=== PATIENT | female | born 1980 | race Caucasian/White ===

== ENCOUNTER 2019-06-09 23:17 | Emergency (ER) | payer OTHER | END 2019-06-10 05:32 | disposition home or self-care (01) | LOC: JER 23:17 | PROC: 3E0337Z Introduction of Electrolytic and Water Balance Substance into Peripheral Vein, Percutaneous Approach (ICD-10-PCS; principal; 2019-06-09) | DX: R07.9 Chest pain, unspecified (principal); R79.89 Other specified abnormal findings of blood chemistry ==

== ENCOUNTER 2020-06-27 19:31 | Emergency (ER) | payer OTHER ==
[2020-06-27 19:38] VITALS: BP 176/84; PULSE 78; TEMP 98.4; BMI 33.7
--- OUTSIDE RECORDS SUMMARY | 2020-06-27 20:07 | XMS ---
:1980 [facility] Providers Name Role Phone Rosales Bryan MD Unavailable Unavailable Rosales Bryan MD Unavailable Unavailable Rosales Bryan MD Unavailable Unavailable oRsales Bryan MD Unavailable Unavailable Rosales Bryan MD Unavailable Unavailable Rosales Bryan MD Unavailable Unavailable Rosales Bryan MD Unavailable Unavailable Rosales Bryan MD Unavailable Unavailable Ringstad, Colette Unavailable Unavailable Ringstad, Colette Unavailable Unavailable Ringstad, Colette Unavailable Unavailable Ringstad, Colette Unavailable Unavailable Ringstad, Colette Unavailable Unavailable Ringstad, Colette Unavailable Unavailable Ringstad, Colette Unavailable Unavailable Ringstad, Colette Unavailable Unavailable Ringstad, Colette Unavailable Unavailable Ringstad, Colette Unavailable Unavailable Ringstad, Colette Unavailable Unavailable Kamilah Rome Unavailable [phone] So, Erika Unavailable Unavailable So, Erika Unavailable Unavailable So, Erika Unavailable Unavailable So, Erika Unavailable Unavailable So, Erika Unavailable Unavailable So, Erika Unavailable Unavailable So, Erika Unavailable Unavailable So, Erika Unavailable Unavailable So, Erika Unavailable Unavailable So, Erika Unavailable Unavailable Dominic Mackey Unavailable [phone] ED STAFF PHYSICIAN, STAFF Unavailable Unavailable MD Reddy Rogel MD Unavailable [phone] MD Reddy Rogel MD Unavailable [phone] Ringstad, Colette Unavailable Unavailable Ringstad, Colette Unavailable Unavailable Ringstad, Colette Unavailable Unavailable Ringstad, Colette Unavailable Unavailable Ringstad, Colette Unavailable Unavailable Ringstad, Colette Unavailable Unavailable Ringstad, Colette Unavailable Unavailable Ringstad, Colette Unavailable Unavailable Ringstad, Colette Unavailable Unavailable Ringstad, Colette Unavailable Unavailable Ringstad, Colette Unavailable Unavailable Nilo, Aqib Unavailable Unavailable Nilo, Aqib Unavailable Unavailable Nilo, Aqib Unavailable Unavailable InezTrevor MD, MPH Unavailable Unavailable InezTrevor sellers MD, MPH Unavailable Unavailable InezTrevor sellers MD, MPH Unavailable Unavailable InezTrevor yip MD, MPH Unavailable Unavailable InezTrevor sellers MD, MPH Unavailable Unavailable Aszalos, Sisi Delmy Unavailable Unavailable Aszalos, Delmy Unavailable Unavailable Aszalos, Delmy Unavailable Unavailable Aszalos, Delmy Unavailable Unavailable Aszalos, Delmy Unavailable Unavailable Aszalos, Delmy Unavailable Unavailable Aszalos, Delmy Unavailable Unavailable Aszalos, Delmy Unavailable Unavailable Aszalos, Delmy Unavailable Unavailable Routen Unavailable Unavailable Routen Unavailable Unavailable DAYANARA COOPER Unavailable Unavailable Martin Unavailable [phone] Martin Unavailable [phone] Aszalos, Delmy Unavailable Unavailable Aszalos, Delmy Unavailable Unavailable Aszalos, Delmy Unavailable Unavailable Aszalos, Delmy Unavailable Unavailable Aszalos, Delmy Unavailable Unavailable Aszalos, Delmy Unavailable Unavailable Aszalos, Delmy Unavailable Unavailable Aszalos, Delmy Unavailable Unavailable Aszalos, Delmy Unavailable Unavailable Opal Scherer MD Unavailable Unavailable Opal Scherer MD Unavailable Unavailable Opal Scherer MD Unavailable Unavailable Opal Scherer MD Unavailable Unavailable Opal Scherer MD Unavailable Unavailable Opal Scherer MD Unavailable Unavailable Opal Scherer MD Unavailable Unavailable Opal Scherer MD Unavailable Unavailable Opal Scherer MD Unavailable Unavailable Opal Scherer MD Unavailable Unavailable Opal Scherer MD Unavailable Unavailable Opal Scherer MD Unavailable Unavailable Opal Scherer MD Unavailable Unavailable Opal Scherer MD Unavailable Unavailable Opal Scherer MD Unavailable Unavailable MD Virgil Unavailable MD Virgil Unavailable MD Virgil Unavailable MD Virgil Unavailable MD Virgil Unavailable MD Virgil Unavailable MD Virgil Unavailable Hewitt Unavailable [phone] Hewitt Unavailable [phone] Dayanara Unavailable Unavailable Dayanara Unavailable Unavailable Dayanara Unavailable Unavailable Dayanara Unavailable Unavailable Re-disclosure Warning The records that you are about to access may contain information from federally- assisted alcohol or drug abuse programs. If such information is present, then the following federally mandated warning applies: This information has been disclosed to you from records protected by federal confidentiality rules (42 CFR part 2). The federal rules prohibit you from making any further disclosure of this information unless further disclosure is expressly permitted by the written consent of the person to whom it pertains or as otherwise permitted by 42 CFR part 2. A general authorization for the release of medical or other information is NOT sufficient for this purpose. The Federal rules restrict any use of the information to criminally investigate or prosecute any alcohol or drug abuse patient.The records that you are about to access may contain highly sensitive health information, the redisclosure of which is protected by Article 27-F of the [facility] Public Health law. If you continue you may haveaccess to information: Regarding HIV / AIDS; Provided by facilities licensed or operated by the [facility] Office of Mental Health; or Provided by the [facility] Office for People With Developmental Disabilities. If such information is present, then the following [facility] mandated warning applies: This information has been disclosed to you from confidential records which are protected by state law. State law prohibits you from making any further disclosure of this information without the specific written consent of the person to whom it pertains, or as otherwise permitted by law. Any unauthorized further disclosure in violation of state law may result in a fine or prison sentence or both. A general authorization for the release of medical or other information is NOT sufficient authorization for further disclosure. Allergies and Adverse Reactions Type Description Substance Reaction Status Data Source(s ) motrin motrin motrin Unknown Active eCW1 ([facility]) penicillins penicillins penicillins Unknown Active eCW1 ([facility]) shellfish shellfish shellfish Unknown Active eCW1 ([facility]) propensity to Penicillin Penicillins Urticaria Active NEXTGEN (S aint adverse reactions (substance) [facility] drug [place]) Drug allergy Ibuprofen Ibuprofen Urticaria Active NEXTGEN ([facility]) Drug allergy Iodine Iodine Urticaria Active NEXTGEN ([facility]) Drug allergy Ibuprofen Ibuprofen Urticaria Active NEXTGEN ([facility]) Propensity to shellfish Propensity to Unknown Active eCW1 (Sa int adverse reactions adverse reactions [facility]) Propensity to motrin Propensity to Unknown Active eCW1 (Sa int adverse reactions adverse reactions [facility]) Propensity to penicillins Propensity to Unknown Active eCW1 (S aint adverse reactions adverse reactions [facility]) Propensity to shellfish Propensity to Unknown Active eCW1 (Sa int adverse reactions adverse reactions [facility]) Propensity to motrin Propensity to Unknown Active eCW1 (Sa int adverse reactions adverse reactions [facility]) Propensity to penicillins Propensity to Unknown Active eCW1 (S aint adverse reactions adverse reactions [facility]) Family History Family Member Family Member Family Member Date of Description Data Source(s) Name Gender Status Status Unknown Male Diagnosis 05/31/2019 NEXTGEN ([facility] [place] Encounters Encounter Providers Location Date Indications Data Source(s ) Attender: [facility] 03/18/2020 ROCIO TGEN ([facility] 11:09:00 AM [facility] EDT - [place]) 03/18/2020 11:09:00 AM EDT Emergency Attender: STAFF ED H 03/17/2020 [facility] STAFF PHYSICIAN 01:44:00 AM [facility] EDT - 03/17/2020 05:27:00 AM EDT Patient discharged. Attender: Kamilah [facility] 03/08/2020 NEXTG EN ([facility] 10:41:00 AM EDT - [facility] 03/08/2020 [place]) 10:41:00 AM EDT Outpatient Attender: Erika Stallings 03/08/2020 [facility] VelezAdmitter: 10:41:00 AM EDT Medic al Center Erika VelezReferrer: Erika So Outpatient 03/08/2020 [facility] 10:37:00 AM EDT Medical C enter Outpatient 03/08/2020 [facility] 12:00:00 AM EDT Medical C enter Outpatient 03/05/2020 [facility] 10:58:00 AM EDT Medical C enter Outpatient Attender: Rosales Stallings 03/05/2020 [facility] 07:55:00 AM EDT Medical C enter MDAdmitter: Rosales Bryan MDReferrer: Rosales Bryan MD Attender: Dominic [facility] 03/05/2020 NEXT GEN ([facility] 07:55:00 AM EDT [facility] 03/05/2020 [place]) 07:55:00 AM EDT Outpatient 03/05/2020 [facility] 12:00:00 AM EDT Medical C enter (TEL) [address] 03/04/2020 eCW1 ([facility] 12:00:00 AM EDT [facility]) [facility]: [facility] 02/23/2020 NEXTG EN ([facility] 10:58:[address] [facility] 02/23/2020 [place]) 10:58:00 AM EDT Outpatient Attender: Erika Stallings 02/23/2020 [facility] VelezAdmitter: 10:58:00 AM EDT Medic [facility] Erika VelezReferrer: Erika So Outpatient 02/23/2020 [facility] 09:58:00 AM EDT Medical C enter Outpatient 02/23/2020 [facility] 12:00:00 AM EDT Medical C enter Attender: [facility] 02/17/2020 NEXTGE N ([facility] 12:54:[address] [facility] 02/17/2020 [place]) 12:54:00 PM EDT Outpatient 02/09/2020 [facility] 02:11:00 PM EDT Medical C enter Outpatient Attender: Erika Stallings 02/09/2020 [facility] VelezAdmitter: 11:03:00 AM EDT Medic al Center Erika VelezReferrer: Erika So Attender: [facility] 02/09/2020 NEXT EN ([facility] 11:03:[address] [facility] 02/09/2020 [place]) 11:03:00 AM EDT Outpatient 02/09/2020 [facility] 12:00:00 AM EDT Medical C enter Attender: [facility] 01/29/2020 NEXT EN ([facility] 09:28:00 AM EDT [facility] 01/29/2020 [place]) 09:28:00 AM EDT Outpatient 01/27/2020 [facility] 03:33:00 PM EDT Medical C enter Outpatient 01/27/2020 [facility] 10:23:00 AM EDT Medical C enter Outpatient Attender: Rosales Stalligns 01/27/2020 [facility] Gh[facility]al Bryan 09:30:00 AM EDT Medical C enter MDAdmitter: Rosales Bryan MDReferrer: Rosales Bryan MD Attender: [facility]ic [facility] 09:30:00 AM EDT [facility] 01/27/2020 [place]) 09:30:00 AM EDT Outpatient 01/27/2020 [facility] 12:00:00 AM EDT Medical C enter Outpatient [address] 01/27/2020 eCW1 [facility] Attender: Erika Stallings 01/26/2020 [facility] VelezAdmitter: 02:32:00 PM EDT [facility] Erika SoReferrer: Erika So Attender: [facility] 01/26/2020 NEXT EN ([facility] 02:32:[address] [facility] 01/26/2020 Center) 02:32:00 PM EDT Outpatient 01/26/2020 [facility] 01:10:00 PM EDT Medical C enter Outpatient Attender: Erika Stallings 01/26/2020 [facility] VelezAdmitter: 09:09:00 AM EDT [facility] Erika SoReferrer: Erika So PHONE E/M BY PHYS Attender: [facility] 01/26/2020 [facility] ([facility] 21-30 [facility] 09:09:00 AM EDT - [facility] 01/26/2020 [place]) 09:09:00 AM EDT Outpatient 01/26/2020 [facility] 09:07:00 AM EDT Medical C enter Outpatient 01/26/2020 [facility] 12:00:00 AM EDT Medical C enter PHONE E/M BY PHYS Attender: [facility] 01/22/2020 NEXTGEN ([facility] 11-20 [facility] 04:09:[address] [facility] 01/22/2020 [place]) 04:09:00 PM EDT Outpatient Attender: Chandrakant 01/22/2020 [facility] Colette 03:32:00 PM EDT Medical C enter RingstadAdmitter: [place] Ponceeferrer: Colette Veliz Attender: [facility] 01/22/2020 SANDIEG EN ([facility] 03:32:[address] [facility] 01/22/2020 [place]) 03:32:00 PM EDT Outpatient 01/22/2020 [facility] 03:29:00 PM EDT Medical C enter Outpatient 01/22/2020 [facility] 12:00:00 AM EDT Medical C enter Outpatient Attender: Erika Stallings 01/01/2020 [facility] VelezAdmitter: 11:59:00 AM EDT Medic al Center Erika SoReferrer: Erika So OutpatientOFFICE/O Attender: [facility] 01/01/2020 ANGELITA (Inez Cloud MD, MPH [place] 11:59:00 AM EDT [facility] Medical EST 01/01/2020 [place]) 11:59:00 AM EDT Outpatient 01/01/2020 [facility] 11:06:00 AM EDT Medical C enter Outpatient 01/01/2020 [facility] 12:00:00 AM EDT Medical C enter Outpatient 12/31/2019 [facility] 02:11:00 PM EDT Medical C enter Outpatient 12/31/2019 [facility] 12:00:00 AM EDT Medical C enter Attender: [facility] 11/20/2019 EDDIE EN ([facility] [place] 03:27:00 PM EST - [facility] Medical 11/20/2019 [place]) 03:27:00 PM EST Outpatient 11/13/2019 [facility] 02:06:00 PM EST Medical C enter Outpatient 11/13/2019 [facility] 12:00:00 AM EST Medical C enter Attender: [facility] 11/11/2019 EDDIE EN ([facility] [place] 03:07:00 PM EST - [facility] 11/11/2019 [place]) 03:07:00 PM EST Outpatient 11/06/2019 [facility] 02:09:00 PM EST Medical C enter Outpatient 11/06/2019 [facility] 12:00:00 AM EST Medical C enter Attender: [facility] 10/31/2019 NEXTGE N ([facility] 01:50:[address] [facility] 10/31/2019 [place]) 01:50:00 PM EST Outpatient 10/29/2019 [facility] 01:43:00 PM EST Medical C enter Outpatient 10/29/2019 [facility] 11:16:00 AM EST Medical C enter Outpatient Attender: Rosales Stallings 10/29/2019 [facility] 08:45:00 AM EST Medical C enter MDAdmitter: Rosales Bryan MDReferrer: Rosales Bryan MD Attender: Dominic 10/29/2019 SANDIEGEN ( [facility] 08:45:00 AM EST [facility] 10/29/2019 [place]) 08:45:00 AM EST Outpatient 10/29/2019 [facility] 12:00:00 AM EST Medical C enter [address] 10/29/2019 [facility]CW[facility] 12[facility]00 [facility] [address] 10/29/2019 [facility]CW1 [facility] 12:00:00 AM [facility]) Outpatient Attender: Erika Stallings 10/20/2019 [facility] roc VelezAdmitter: 06:59:00 PM EST Medic al Center Erika SoReferrer: Erika So OutpatientOFFICE/O Attender: [facility] 10/20/2019 Hoa EXTGEN ([facility] VISIT, Reddy Rogel MD [place] 06:59:[address] [facility] EST 10/20/2019 [place]) 06:59:00 PM EST Outpatient 10/20/2019 [facility] 03:17:00 PM EST Medical C enter Outpatient 10/20/2019 [facility] 12:00:00 AM EST Medical C enter Emergency Attender: STAFF H 10/19/2019 [facility] ED STAFF 04:03:00 AM EST - Medical Center PHYSICIAN 10/19/2019 03:41:00 PM EST Patient discharged. Emergency Attender: Deric Herman H-HAL6 10/14/2019 08:23:00 [facility] MDAttender: STAFF ED STAFF PM EST - 10/16/2019 Medical Center PHYSICIANAdmitter: STAFF ED 03:30:00 PM EST STAFF PHYSICIAN Patient discharged. Outpatient Attender: COOPER Stallings 10/14/2019 [facility] DAYANARA MINALAdmitter: 05:46:00 PM [facility] Medical Center COOPER DAYANARA MINALReferrer: COOPER GAMBOA OutpatientOFFICE/O Attender: [facility] 10/14/2019 SANDIEGEN ([facility] HERNAN, Inez ORTEZ, MPH Center 05:46:00 PM [facility] 10/14/2019 Medical 05:46:00 PM EST Center) Outpatient 10/14/2019 [facility] 05:44:00 PM EST Medical C enter Outpatient 10/14/2019 [facility] 12:00:00 AM EST Medical C enter Attender: [facility] 08/11/2019 ANILA N ([facility] 03:28:00 PM EST [facility] 08/11/2019 Medical 03:28:00 PM EST Center) Attender: [facility] 07/14/2019 ANILA N ([facility] 04:30:00 PM EDT [facility] 07/14/2019 Medical 04:30:00 PM EDT Center) Outpatient 07/12/2019 [facility] 06:32:00 PM EDT Medical C enter Outpatient 07/12/2019 [facility] 12:00:00 AM EDT Medical C enter Attender: Chuck [facility] 07/10/2019 EDDIE EN ([facility] 02:18:00 PM EDT [facility] 07/10/2019 Medical 02:18:00 PM EDT Center) Outpatient 07/07/2019 [facility] 05:28:00 PM EDT Medical C enter Outpatient 07/07/2019 [facility] 12:00:00 AM EDT Medical C enter Attender: Cate [facility] 07/04/2019 ANILA N ([facility] 11:40:00 AM EDT [facility] 07/04/2019 Medical 11:40:00 AM EDT Center) Outpatient 07/03/2019 [facility] 01:10:00 PM EDT Medical C enter Outpatient 07/03/2019 [facility] 12:00:00 AM EDT Medical C enter Outpatient 06/25/2019 [facility] 01:09:00 PM EDT Medical C enter Outpatient 06/25/2019 [facility] 12:00:00 AM EDT Medical C enter Outpatient 06/10/2019 [facility] 05:06:00 PM EDT Medical C enter Outpatient H 06/10/2019 [facility] 04:30:00 PM EDT Medical C enter OutpatientOFFICE/O Attender: MD Blakely [facility] 06/10/2019 ANGELITA ([facility] 04:30:00 PM EDT - J osep EST 06/10/2019 Medical 04:30:00 PM EDT Center) Outpatient 06/10/2019 [facility] 12:42:00 PM EDT Medical C enter Outpatient 06/10/2019 [facility] 12:00:00 AM EDT Medical C enter Emergency H 06/08/2019 [facility] 04:01:00 PM EDT - Medical Center 06/08/2019 09:42:00 PM EDT Patient discharged. Emergency H 06/05/2019 11:14:00 AM EDT - [address] [place] [address] 05:26:00 PM EDT Patient discharged. Outpatient 05/29/2019 [facility] 03:22:00 PM EDT Medical C enter Outpatient Attender: Sisi Stallings 05/29/2019 [facility] anita Brushdmitter: 01:37:00 PM EDT Med ical Center Sisi Sandraeferrer: Sisi Blank OutpatientOFFICE/OU Attender: Miquel [facility] 05/29/2019 ANGELITA ([facility] 01:37:[address] [facility] 05/29/2019 [place]) 01:37:00 PM EDT Outpatient 05/29/2019 [facility] 12:00:00 AM EDT Medical C enter Emergency H 04/28/2019 [facility] 06:14:00 PM EDT Medical C enter 04/28/2019 [facility] 12:00:00 AM EDT Medical C enter Immunizations Vaccine Date Status Description Data Source(s) No Known Immunizations completed eCW1 ([facility]) Medications Medication Brand Start Product Dose Route Administrative [facility] Indications Reaction Description Data Name Date Form Instructions Instructions Source(s) pantoprazol pantop ORAL active take 1 NEXTGEN e 40 MG razole 2020 {tbl} tablet by (Inderjit nt Delayed 40 mg 12:00: oral route Adalberto ephs Release tablet 00 AM every day Medi carmela Oral Tablet ,delay EDT Center ) pantoprazol ed e 40 mg releas tablet,raegan e yed release Aspirin 81 Aspiri 01/26/ active 1 tablet eCW1 MG Delayed n 2020 ([facility] Release Adult 12:00: Delfino Oral Tablet Low 00 AM Medical Aspirin Streng EDT Practice Adult Low th 81 PC) Strength 81 MG MG Aspirin 81 Aspiri .0 active Aspirin eCW1 MG Delayed n 2020 {tabl Adult Low (Sa int Release Adult 12:00: et} Strength 81 Sujatha sephs Oral Tablet Low 00 AM MG Medical Aspirin Stre EDT Practice Adult Low th 81 PC) Strength 81 MG MG Aspirin 81 Aspiri .0 active Aspirin eCW1 MG Delayed n 2020 {tabl Adult Low (Sa int Release Adult 12:00: et} Strength 81 Sujatha sephs Oral Tablet Low 00 AM MG Medical Aspirin Streng EDT Practice Adult Low th 81 PC) Strength 81 MG MG pantoprazol pantop ORAL complet take 1 NEXTGEN e 40 MG razole 2020 {tbl} ed tablet by (Inderjit nt Delayed 40 mg 12:00: oral route Adalberto ephs Release tablet 00 AM every day Medi carmela Oral Tablet ,delay EDT Center ) pantoprazol ed e 40 mg releas tablet,raegan e yed release atorvastati atorva ORAL active take 1 NEXTGEN n 10 MG statin 2020 {tbl} tablet by (Inderjit nt Oral Tablet 10 mg 12:00: oral route Delfino atorvastati tablet 00 AM every day Medical n 10 mg [facility] Center) tablet Nicotine 4 Nicore ORAL active Nicotine 4 NEXTGEN MG Oral tte 4 2019 {tbl} MG Oral (Saint Lozenge mg 12:00: Lozenge Delfino [Nicorette] buccal 00 AM [Nicorette ] Medical Nicorette 4 lozeng EST Center ) mg buccal e lozenge 24 HR metopr ORAL active take 1 NEXTGE N metoprolol olol 2020 {tbl} tablet by (Sa int succinate succin 12:00: oral route Delfino 50 MG ate ER 00 AM every day Medica l Extended 50 mg EST Center) Release tablet Oral Tablet ,exten metoprolol ded succinate releas ER 50 mg e 24 tablet,exte hr nded release 24 hr 0.3 ML EpiPen 09/ 0.30 INTRAM active [id number] NEXTGEN Epinephrine 2-Killian 2019 mL USCULA 0.3 ML (Sa int 1 MG/ML 0.3 12:00: R Epinephrine Adalberto ephs Auto-Inject mg/0.3 00 AM 1 MG/ML Me dical or [Epipen] mL EDT Auto-Injecto Center) EpiPen inject r [Epipen] 2-Killian 0.3 ion, mg/0.3 mL auto-i injection, njecto auto-inject r or pantoprazol pantop 1 complet Inderjit nt e 40 MG razole ed Delfino Delayed 40 mg Medical Release tablet Center Oral Tablet ,delay pantoprazol ed e 40 mg releas tablet,raegan e yed release (DR/EC (DR/EC), ), Ordered By: Leonardo Jones d By: Edmundo Pandey FNPDirectio r ns: 1 Ostine tablet oral , daily FNPDir before ection breakfast s: 1 tablet oral daily before breakf ast 24 HR Metopr 1.0 active Metoprolol eCW1 metoprolol olol {tabl Succinate ER (Saint succinate Succin et} 25 MG Delfino 25 MG ate ER Medical Extended 25 MG Practice Release PC) Oral Tablet Metoprolol Succinate ER 25 MG 24 HR Metopr 1.0 active Metoprolol eCW1 metoprolol olol {tabl Succinate ER (Saint succinate Succin et} 25 MG Delfino 25 MG ate ER Medical Extended 25 MG Practice Release PC) Oral Tablet Metoprolol Succinate ER 25 MG atorvastati Atorva active 1 tablet eCW1 n 10 MG statin (Saint Oral Tablet Calciu Dennis s Atorvastati m 10 Medical n Calcium MG Practice 10 MG PC) Acetaminoph acetam 2 complet Inderjit nt en 325 MG inophe ed Delfino Oral Tablet n 325 Medical acetaminoph mg Center en 325 mg Tablet Tablet, , Ordered By: Leonardo Dias d By: Arun Khan ns: 2 McInty tablet oral re, every six FNPDir hours PRN ection pain s: 2 tablet oral every six hours PRN pain Famotidine famoti 1 complet Cami t 20 MG Oral dine ed Delfino Tablet 20 mg Medical famotidine Tablet Center 20 mg , Tablet, Ordere Ordered By: d By: Liliam Novoantcali ns: 1 re, tablet oral FNPDir daily ection s: 1 tablet oral daily atorvastati atorva 1 complet Inderjit nt n 10 MG statin ed Delfino Oral Tablet 10 mg Medical atorvastati Tablet Center n 10 mg , Tablet, Ordere Ordered By: d By: [email or web address] Loo ns: 1 , tablet oral FNPDir daily at ection bedtime s: 1 tablet oral daily at bedtim e Metoclopram metocl 1 complet Inderjit nt papito 5 MG oprami ed Delfino Oral Tablet de HCl Medica l metoclopram 5 mg Center papito HCl 5 Tablet mg Direct TabletDirec ions: tions: 1 1 tablet oral tablet three times oral a day three before times meals PRN a day nausea or before vomiting meals PRN nausea or vomiti ng 24 HR metopr 1 complet [facility] metoprolol olol ed Delfino succinate succin Medical 25 MG ate 25 Center Extended mg Release Tablet Oral Tablet Extend metoprolol ed succinate Releas 25 mg e 24 Tablet hr, Extended Ordere Release 24 d By: hr, Ordered Anteno By: Dannie Kitchen , ns: 1 FNPDir tablet oral ection daily s: 1 tablet oral daily atorvastati Atorva 1.0 active Atorvasta tin eCW1 n 10 MG statin {tabl Calcium 10 (Sa int Oral Tablet Calciu et} MG Dennis s Atorvastati m 10 Medical n Calcium MG Practice 10 MG PC) 24 HR Metopr active 1 tablet eCW1 metoprolol olol ([facility] succinate Succin Delfino 25 MG ate ER Medical Extended 25 MG Practice Release PC) Oral Tablet Metoprolol Succinate ER 25 MG atorvastati Atorva 1.0 active Atorvasta tin eCW1 n 10 MG statin {tabl Calcium 10 (Sa int Oral Tablet Calciu et} MG Dennis s Atorvastati m 10 Medical n Calcium MG Practice 10 MG PC) Acetaminoph acetam 2 complet Inderjit nt en 325 MG inophe ed Delfino Oral Tablet n 325 Medical acetaminoph mg Center en 325 mg Tablet Tablet, , Ordered By: Leonardo Dias d By: Arun Khan FNPDirectio Liliam ns: 2 McInty tablet oral re, every six FNPDir hours PRN ection pain s: 2 tablet oral every six hours PRN pain Insurance Providers Payer name Policy type Policy ID Covered Covered alliance party's Policy P gunnar / Coverage alliance party ID relationship to Mei Inf ormation type mei [place] [id number] [place] [id number] HMO MVP/HHP [id number] self [id number] O MVP/HHP O [id number] 01 [id number] 300 O W [id number] Problems, Conditions, and Diagnoses Code Display Name Description Problem Type Effective Data Dates Source(s) I10 30600781 Essential Problem 10/29/2019 eCW1 ([facility] hypertension 12:00:00 AM [facility]) I10 [id number] Essential Problem 10/29/2019 eCW1 ([facility] hypertension 12:00:00 AM [facility]) [id number] Anxiety Anxiety Problem NEXTGEN ([facility]) Z72.0 Tobacco use TOBACCO USE Diagnosis 03/17/2020 [place] 01:44:00 AM Medical EDT Center I10 Essential (primary) ESSENTIAL Diagnosis 03/17/2020 [facility] hypertension (PRIMARY) 01:44:00 AM Medical HYPERTENSION EDT Center M79.10 MYALGIA, UNSPECIFIED MYALGIA, Diagnosis 03/17/2020 [facility] SITE UNSPECIFIED SITE 01:44:00 AM Medical EDT Center R52 Pain, unspecified PAIN, UNSPECIFIED Diagnosis 03/17/2020 [facility] 01:44:00 AM Medical EDT Center R07.89 Other chest pain OTHER CHEST PAIN Diagnosis 01/27/2020 Sa int Delfino 09:30:00 AM Medical EDT Center R07.9 Chest pain, CHEST PAIN, Diagnosis 01/26/2020 [facility] [place] [facility] unspecified UNSPECIFIED 09:09:00 AM Medical EDT Center Z71.3 Dietary counseling DIETARY Diagnosis 01/01/2020 [facility] and surveillance COUNSELING AND 11:59:00 AM Med ical SURVEILLANCE EDT Center F41.9 Anxiety disorder, ANXIETY DISORDER, Diagnosis 01/01/2020 [facility] unspecified UNSPECIFIED 11:59:00 AM Medical EDT Center Z12.4 Encounter for ENCOUNTER FOR Diagnosis 01/01/2020 [facility] syeds screening for SCREENING FOR 11:59:00 AM Medical malignant neoplasm MALIGNANT EDT Center of cervix NEOPLASM OF CERVIX Z00.00 Encounter for ENCNTR FOR Diagnosis 01/01/2020 [facility] general adult GENERAL ADULT 11:59:00 AM Medical medical examination MEDICAL EXAM W/O EDT Center without abnormal ABNORMAL FINDINGS findings R00.2 Palpitations PALPITATIONS Diagnosis 10/29/2019 [facility] 08:45:00 AM Medical EST Center Z71.89 Other specified OTHER SPECIFIED Diagnosis 10/20/2019 [facility] counseling COUNSELING 06:59:00 PM Medical EST Center Z71.6 Tobacco abuse TOBACCO ABUSE Diagnosis 10/20/2019 [facility] yahairas counseling COUNSELING 06:59:00 PM Medical EST Center I25.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/20/2019 [facility] heart disease of DISEASE OF [place]ANG[place] 06:59:00 PM Medical [place] coronary COR ART W UNSP EST Cente r artery with ANG PCTRS unspecified angina pectoris F17.210 Nicotine dependence, NICOTINE Diagnosis 10/14/2019 [facility] cigarettes, DEPENDENCE, 08:23:00 PM Medical uncomplicated CIGARETTES, EST Center UNCOMPLICATED I25.89 Other forms of OTHER FORMS OF Diagnosis 10/14/2019 [facility] chronic ischemic CHRONIC ISCHEMIC 08:23:00 PM edical heart disease HEART DISEASE EST Center N64.9 Disorder of breast, DISORDER OF Diagnosis 06/10/2019 Cami t Delfino unspecified BREAST, 04:30:00 PM Medical UNSPECIFIED EDT Center R10.9 Unspecified UNSPECIFIED Diagnosis 06/05/2019 [facility] abdominal pain ABDOMINAL PAIN 11:14:00 AM Medic al EDT Center R51 Headache HEADACHE Diagnosis 06/05/2019 [facility] 11:14:00 AM Medical EDT Center R19.7 Diarrhea, DIARRHEA, Diagnosis 06/05/2019 [facility] unspecified UNSPECIFIED 11:14:00 AM Medical EDT Center R11.10 Vomiting, VOMITING, Diagnosis 06/05/2019 [facility] unspecified UNSPECIFIED 11:14:00 AM Medical EDT Center Z68.34 Body mass index BODY MASS INDEX Diagnosis 05/29/2019 [facility] t Delfino (BMI) 34.0-34.9, (BMI) 34.0-34.9, 01:37:00 PM edical adult ADULT EDT Center Z71.9 Counseling, COUNSELING, Diagnosis 05/29/2019 [facility] unspecified UNSPECIFIED 01:37:00 PM Medical EDT Center Z13.9 Encounter for ENCOUNTER FOR Diagnosis 05/29/2019 [facility] jerome screening, SCREENING, 01:37:00 PM Medical unspecified UNSPECIFIED EDT Center Z80.9 Family history of FAMILY HISTORY OF Diagnosis 05/29/2019 [facility] malignant neoplasm, MALIGNANT 01:37:00 PM [facility] carmela unspecified NEOPLASM, EDT Center UNSPECIFIED R55 Syncope and collapse SYNCOPE AND Diagnosis 04/28/2019 Inderjit nt Delfino COLLAPSE 06:14:00 PM Medical EDT Center R42 Dizziness and DIZZINESS AND Diagnosis 04/28/2019 [facility] jerome giddiness GIDDINESS 06:14:00 PM Medical EDT Center Surgeries/Procedures Procedure Description Date Indications Data Source(s) PHONE E/M [facility]30 [facility] 12:00:00 AM [facility] EDT - Center) 01/26/2020 12:00:00 AM EDT PHONE E/M BY PHYS 01/22/2020 [facility] (S aint 11-20 MIN 12:00:00 AM [facility] EDT - Center) 01/22/2020 12:00:00 AM EDT OFFICE/OUTPATIENT 01/01/2020 [facility] (S aint VISIT, EST 12:00:00 AM [facility] EDT - Center) 01/01/2020 12:00:00 AM EDT SPECIMEN HANDLING 01/01/2020 [facility] (S aint 12:00:00 AM [facility] EDT - Center) 01/01/2020 12:00:00 AM EDT OFFICE/OUTPATIENT 10/20/2019 [facility] (S aint VISIT, EST 12:00:00 AM [facility] EST - Center) 10/20/2019 12:00:00 AM EST OFFICE/OUTPATIENT 10/14/2019 [facility] (S aint VISIT, EST 12:00:00 AM [facility] EST - [place]) 10/14/2019 12:00:00 AM EST OFFICE/OUTPATIENT 06/10/2019 [facility] (S aint VISIT, EST 12:00:00 AM [facility] EDT - Center) 06/10/2019 12:00:00 AM EDT OFFICE/OUTPATIENT 05/29/2019 [facility] (S aint VISIT, NEW 12:00:00 AM [facility] EDT - [place]) 05/29/2019 12:00:00 AM EDT No Known procedures No Known procedures e CW1 ([facility]) Results ID Date Data Source HematologyRou.[id number] 03/17/2020 03:13:00 AM EDT [facility] 0400 Name Value Range Interpretation Description Data Sup porting Code Source(s) Document(s ) Erythrocytes 4.0-5.1 Below low normal <content [facility] [#/volume] in styleCode="Bold Delfino Blood by ">Red Blood Medical Automated count Cell Count Center </content>3.91 MCUMM L<content styleCode="Ital ics"> (4.0-5.1 MCUMM)</content > Leukocytes 4.4-11.0 <content [facility] [#/volume] in styleCode="Bold Delfino Blood by ">White Blood Medical Automated count Cell Count Center </content>9.86 KCUMM<content styleCode="Ital ics"> (4.4-11.0 KCUMM)</content > Hemoglobin 12.3-16. Below low normal <content [facility] [Mass/volume] in 0 styleCode="Bold Delfino Blood ">Hemoglobin Medical </content>12.1 Center G/DL L<content styleCode="Ital ics"> (12.3-16.0 G/DL)</content> Erythrocyte mean 80.0-100 <content [facility] corpuscular .0 styleCode="Bold Delfino volume [Entitic ">Mean Medical volume] by Corpuscular Center Automated count Volume </content>92.1 FL<content styleCode="Ital ics"> (80.0-100.0 FL)</content> Hematocrit 36.0-46. <content [facility] [Volume 0 styleCode="Bold Delfino Fraction] of ">Hematocrit Medical Blood by </content>36.0 Center Automated count %<content styleCode="Ital ics"> (36.0-46.0 %)</content> Erythrocyte mean 26.0-34. <content [facility] corpuscular 0 styleCode="Bold Delfino hemoglobin ">Mean Medical [Entitic mass] Corposcular Center by Automated Hemoglobin count </content>30.9 PG<content styleCode="Ital ics"> (26.0-34.0 PG)</content> Erythrocyte mean 32.0-37. <content [facility] corpuscular 0 styleCode="Bold Delfino hemoglobin ">Mean Corpus. Medical concentration Hgb Center [Mass/volume] by Concentration Automated count (MCHC) </content>33.6 G/DL<content styleCode="Ital ics"> (32.0-37.0 G/DL)</content> Platelets 130-400 <content [facility] [#/volume] in styleCode="Bold Delfino Blood by ">Platelet Medical Automated count Count Center </content>270 KCUMM<content styleCode="Ital ics"> (130-400 KCUMM)</content > Erythrocyte 11.5-14. <content [facility] distribution 5 styleCode="Bold Delfino width [Ratio] by ">Red Cell Medical Automated count Distribution Center Width </content>12.8 %<content styleCode="Ital ics"> (11.5-14.5 %)</content> Platelet mean 8.0-11.0 Above high <content [facility] volume [Entitic normal styleCode="Bold Delfino volume] in Blood ">Mean Platelet Medical by Automated Volume Center count </content>11.4 FL H<content styleCode="Ital ics"> (8.0-11.0 FL)</content> UNK 0 <content [facility] styleCode="Bold Delfino ">Nucleated Red Medical Blood Cell Center </content>0.0 /100<content styleCode="Ital ics"> (0 /100)</content> UNK 0.0 <content [facility] styleCode="Bold Delfino ">Nucleated Red Medical Blood Cell Center Count </content>0.00 KCUMM<content styleCode="Ital ics"> (0.0 KCUMM)</content > ID Date Data Source GFR(Creatinine).[id number] 03/17/2020 03:13:00 AM EDT [facility] 0-0400 Name Value Range Interpretation Code Description Data Maribell rce(s) Supporting Document(s ) UNK > 60 <content [facility] styleCode="Bold"> Medical Cent er EGFR </content>99 GFR<content styleCode="Italic s"> (> 60 GFR)</content> ID Date Data Source Coagulation 03/17/2020 03:13:00 AM [facility] ical Center Rout.[id number] EDT Name Value Range Interpretation Description Data Sup porting Code Source(s) Document(s ) UNK 9.0-13.0 <content [facility] styleCode="Bold" Delfino >Protime Medical </content>11.0 Center SEC<content styleCode="Itali cs"> (9.0-13.0 SEC)</content> INR in 0.80-1.2 <content [facility] Platelet poor 0 styleCode="Bold" Delfino plasma by >INR Medical Coagulation </content>0.99 Center assay #<content styleCode="Itali cs"> (0.80-1.20 #)</content> aPTT in 25.1-36. <content [facility] Platelet poor 5 styleCode="Bold" Delfino plasma by >Partial Medical Coagulation Thromboplastin Center assay Time </content>32.0 SEC<content styleCode="Itali cs"> (25.1-36.5 SEC)</content> ID Date Data Source CHMROUTINECCDA.[id number] 03/17/2020 03:13:00 AM EDT [facility] -0400 Name Value Range Interpretation Description Data Sup porting Code Source(s) Document(s ) Natriuretic < 125 <content [facility] peptide.B styleCode="Chandrakant Delfino prohormone d">NT Pro BNP Medical N-Terminal </content>39.5 Center [Mass/volume] PG/ML<content in Serum or styleCode="Michelle Plasma lics"> (< 125 PG/ML)</conten t> ID Date Data Source CardiacMarkers.[id number] 03/17/2020 03:13:00 AM EDT [facility] -0400 Name Value Range Interpretation Description Data Sup porting Code Source(s) Document(s ) Troponin < 0.034 <content [facility] I.cardiac styleCode="Bold Delfino [Mass/volume ">Troponin I Medical ] in Serum </content>< Center or Plasma 0.012 NG/ML<content styleCode="Ital ics"> (< 0.034 NG/ML)</content > ID Date Data Source BMP.[id number] 03/17/2020 03:13:00 AM EDT [facility] Name Value Range Interpretation Description Data Sup porting Code Source(s) Document(s ) Sodium 137-145 Below low normal <content [facility] [Moles/volume] styleCode="Chandrakant Delfino in Serum or d">Sodium Medical Plasma </content>134 Center MEQ/L L<content styleCode="Michelle lics"> (137-145 MEQ/L)</conten t> Carbon 22-30 <content [facility] dioxide, total styleCode="Chandrakant Delfino [Moles/volume] d">Carbon Medical in Serum or Dioxide Center Plasma </content>23 MEQ/L<content styleCode="Michelle lics"> (22-30 MEQ/L)</conten t> Potassium 3.5-5.3 <content [facility] [Moles/volume] styleCode="Chandrakant Delfino in Serum or d">Potassium Medical Plasma </content>4.0 Center MEQ/L<content styleCode="Michelle lics"> (3.5-5.3 MEQ/L)</conten t> Chloride 98-107 Above high normal <content [facility] [Moles/volume] styleCode="Chandrakant Delfino in Serum or d">Chloride Medical Plasma </content>109 Center MEQ/L H<content styleCode="Michelle lics"> (98-107 MEQ/L)</conten t> Creatinine 0.5-1.3 <content [facility] [Mass/volume] styleCode="Chandrakant Delfino in Serum or d">Creatinine Medical Plasma </content>0.7 Center MG/DL<content styleCode="Michelle lics"> (0.5-1.3 MG/DL)</conten t> Glucose 74-106 <content [facility] [Mass/volume] styleCode="Chandrakant Delfino in Serum or d">Glucose Medical Plasma </content>102 Center MG/DL<content styleCode="Michelle lics"> (74-106 MG/DL)</conten t> UNK 7-17 <content [facility] styleCode="Chandrakant Delfino d">BUN Medical </content>16 Center MG/DL<content styleCode="Michelle lics"> (7-17 MG/DL)</conten t> Calcium 8.4-10.2 <content [facility] [Mass/volume] styleCode="Chandrakant Delfino in Serum or d">Calcium Medical Plasma </content>9.5 Center MG/DL<content styleCode="Michelle lics"> (8.4-10.2 MG/DL)</conten t> UNK > 60 <content [facility] styleCode="Chandrakant Delfino d">EGFR Medical </content>99 Center GFR<content styleCode="Michelle lics"> (> 60 GFR)</content> ID Date Data Source [id number] 03/07/2020 09:19:00 AM EDT [facility] Name Value Range Interpretation Code Description Data Maribell rce(s) Supporting Document(s ) SARS-CoV-2 [facility] Ql SARAN+probe This lab was ordered by [facility] a nd reported by [facility]. ID Date Data Source Liver 03/05/2020 08:20:00 AM EDT [facility] Profile.[id number] Name Value Range Interpretation Description Data Sup porting Code Source(s) Document(s ) Alanine 7-30 <content [facility] aminotransferase styleCode="Bold"> [facility] [Enzymatic Alanine Medical activity/volume] Aminotransferase Center in Serum or Plasma (ALT) </content>12 IU/L<content styleCode="Italic s"> (7-30 IU/L)</content> Aspartate 14-36 <content [facility] aminotransferase styleCode="Bold"> [facility] [Enzymatic Aspartate Medical activity/volume] Aminotransferase Center in Serum or Plasma (AST) </content>19 IU/L<content styleCode="Italic s"> (14-36 IU/L)</content> Alkaline 38-126 <content [facility] phosphatase styleCode="Bold"> [facility] [Enzymatic Alkaline Medical activity/volume] Phosphatase (ALP) Cente r in Serum or Plasma </content>83 IU/L<content styleCode="Italic s"> (38-126 IU/L)</content> Bilirubin.total 0.2-1.3 Below low <content [facility] [Mass/volume] in normal styleCode="Bold"> [facility] hs Serum or Plasma Bilirubin Total Medical </content>< 0.2 Center MG/DL L<content styleCode="Italic s"> (0.2-1.3 MG/DL)</content> Albumin 3.5-5.0 <content [facility] [Mass/volume] in styleCode="Bold"> Mark hs Serum or Plasma Albumin Medical </content>3.7 Center G/DL<content styleCode="Italic s"> (3.5-5.0 G/DL)</content> ID Date Data Source HematologyRou.[id number] 03/05/2020 08:20:00 AM EDT [facility]der[facility] 0400 Name Value Range Interpretation Description Data Sup porting Code Source(s) Document(s ) Erythrocytes 4.0-5.1 <content [facility] [#/volume] in styleCode="Bold Delfino Blood by ">Red Blood Medical Automated count Cell Count Center </content>4.08 MCUMM<content styleCode="Ital ics"> (4.0-5.1 MCUMM)</content > Hemoglobin 12.3-16. <content [facility] [Mass/volume] in 0 styleCode="Bold Delfino Blood ">Hemoglobin Medical </content>12.5 Center G/DL<content styleCode="Ital ics"> (12.3-16.0 G/DL)</content> Leukocytes 4.4-11.0 <content [facility] [#/volume] in styleCode="Bold Delfino Blood by ">White Blood Medical Automated count Cell Count Center </content>7.44 KCUMM<content styleCode="Ital ics"> (4.4-11.0 KCUMM)</content > Erythrocyte mean 32.0-37. <content [facility] corpuscular 0 styleCode="Bold Delfino hemoglobin ">Mean Corpus. Medical concentration Hgb Center [Mass/volume] by Concentration Automated count (MCHC) </content>32.3 G/DL<content styleCode="Ital ics"> (32.0-37.0 G/DL)</content> Hematocrit 36.0-46. <content [facility] [Volume 0 styleCode="Bold Delfino Fraction] of ">Hematocrit Medical Blood by </content>38.7 Center Automated count %<content styleCode="Ital ics"> (36.0-46.0 %)</content> Erythrocyte mean 26.0-34. <content [facility] corpuscular 0 styleCode="Bold Delfino hemoglobin ">Mean Medical [Entitic mass] Corposcular Center by Automated Hemoglobin count </content>30.6 PG<content styleCode="Ital ics"> (26.0-34.0 PG)</content> Erythrocyte mean 80.0-100 <content [facility] corpuscular .0 styleCode="Bold Delfino volume [Entitic ">Mean Medical volume] by Corpuscular Center Automated count Volume </content>94.9 FL<content styleCode="Ital ics"> (80.0-100.0 FL)</content> Platelets 130-400 <content [facility] [#/volume] in styleCode="Bold Delfino Blood by ">Platelet Medical Automated count Count Center </content>224 KCUMM<content styleCode="Ital ics"> (130-400 KCUMM)</content > Platelet mean 8.0-11.0 Above high <content [facility] volume [Entitic normal styleCode="Bold Delfino volume] in Blood ">Mean Platelet Medical by Automated Volume Center count </content>12.9 FL H<content styleCode="Ital ics"> (8.0-11.0 FL)</content> Erythrocyte 11.5-14. <content [facility] distribution 5 styleCode="Bold Delfino width [Ratio] by ">Red Cell Medical Automated count Distribution Center Width </content>13.0 %<content styleCode="Ital ics"> (11.5-14.5 %)</content> Neutrophils 36-66 <content [facility] [#/volume] in styleCode="Bold Delfino Blood by ">Neutrophil Medical Automated count </content>63.7 Center %<content styleCode="Ital ics"> (36-66 %)</content> Lymphocytes 24.0-44. <content [facility] [#/volume] in 0 styleCode="Bold Delfino Blood by ">Lymphocyte Medical Automated count </content>25.8 Center %<content styleCode="Ital ics"> (24.0-44.0 %)</content> Monocytes 3.0-10.0 <content [facility] [#/volume] in styleCode="Bold Delfino Blood by ">Monocyte Medical Automated count </content>7.4 Center %<content styleCode="Ital ics"> (3.0-10.0 %)</content> UNK 1.6-7.3 <content [facility] styleCode="Bold Delfino ">Neutrophil Medical Count Center </content>4.74 KCUMM<content styleCode="Ital ics"> (1.6-7.3 KCUMM)</content > UNK 1.0-4.8 <content [facility] styleCode="Bold Delfino ">Lymphocyte Medical Count Center </content>1.92 KCUMM<content styleCode="Ital ics"> (1.0-4.8 KCUMM)</content > UNK 0.0-0.6 <content [facility] styleCode="Bold Delfino ">Eosinophil Medical Count Center </content>0.18 KCUMM<content styleCode="Ital ics"> (0.0-0.6 KCUMM)</content > UNK 0.2-0.9 <content [facility] styleCode="Bold Delfino ">Monocyte Medical Count Center </content>0.55 KCUMM<content styleCode="Ital ics"> (0.2-0.9 KCUMM)</content > Eosinophils 0-5.0 <content [facility] [#/volume] in styleCode="Bold Delfino Blood by ">Eosinophil Medical Automated count </content>2.4 Center %<content styleCode="Ital ics"> (0-5.0 %)</content> Basophils 0.0-1.0 <content [facility] [#/volume] in styleCode="Bold Delfino Blood by ">Basophil Medical Automated count </content>0.3 Center %<content styleCode="Ital ics"> (0.0-1.0 %)</content> UNK 0.0-0.3 <content [facility] styleCode="Bold Delfino ">Basophil Medical Count Center </content>0.02 KCUMM<content styleCode="Ital ics"> (0.0-0.3 KCUMM)</content > UNK 0 <content [facility] styleCode="Bold Delfino ">Nucleated Red Medical Blood Cell Center </content>0.0 /100<content styleCode="Ital ics"> (0 /100)</content> UNK 0.0 <content [facility] styleCode="Bold Delfino ">Nucleated Red Medical Blood Cell Center Count </content>0.00 KCUMM<content styleCode="Ital ics"> (0.0 KCUMM)</content > UNK 0-0.1 <content [facility] styleCode="Bold Delfino ">Immature Medical Granulocyte Center Count </content>0.03 KCUMM<content styleCode="Ital ics"> (0-0.1 KCUMM)</content > UNK < 1 <content [facility] styleCode="Bold Delfino ">Immature Medical Granulocyte Center Ratio </content>0.4 %<content styleCode="Ital ics"> (< 1 %)</content> ID Date Data Source GFR(Creatinine).[id number] 03/05/2020 08:20:00 AM EDT [facility] 0-0400 Name Value Range Interpretation Code Description Data Maribell rce(s) Supporting Document(s ) UNK > 60 <content [facility] styleCode="Bold"> Medical Cent er EGFR </content>99 GFR<content styleCode="Italic s"> (> 60 GFR)</content> ID Date Data Source Coagulation 03/05/2020 08:20:00 AM [facility] ical Center Rout.[id number] EDT Name Value Range Interpretation Description Data Sup porting Code Source(s) Document(s ) INR in 0.80-1.2 <content [facility] Platelet poor 0 styleCode="[facility] plasma by d">INR Medical Coagulation </content>0.99 Center assay #<content styleCode="Michelle lics"> (0.80-1.20 #)</content> UNK 9.0-13.0 <content [facility] styleCode="Chandrakant Delfion d">Protime Medical </content>11.0 Center SEC<content styleCode="Michelle lics"> (9.0-13.0 SEC)</content> ID Date Data Source CHMROUTINECCDA.[id number] 03/05/2020 08:20:00 AM EDT [facility] -0400 Name Value Range Interpretation Description Data Sup porting Code Source(s) Document(s ) UNK >= 1.0 <content [facility] styleCode="Bold Medical ">AG Ratio Center </content>1.2 <content styleCode="Ital ics"> (>= 1.0 )</content> UNK 2.3-3.5 <content [facility] styleCode="Bold Medical ">Globulin Center </content>3.0 G/DL<content styleCode="Ital ics"> (2.3-3.5 G/DL)</content> Protein 6.3-8.2 <content [facility] [Mass/volum styleCode="Bold Medical e] in Serum ">Total Protein Center or Plasma </content>6.7 G/DL<content styleCode="Ital ics"> (6.3-8.2 G/DL)</content> ID Date Data Source [facility].[id number] 03/05/2020 08:20:00 AM EDT [facility] Name Value Range Interpretation Description Data Sup porting Code Source(s) Document(s ) Potassium 3.5-5.3 <content [facility] [Moles/volume] in styleCode="Bold"> Kristopher phs Serum or Plasma Potassium Medical </content>4.1 Center MEQ/L<content styleCode="Italic s"> (3.5-5.3 MEQ/L)</content> Sodium 137-145 <content [facility] [Moles/volume] in styleCode="Bold"> [facility] Serum or Plasma Sodium Medical </content>138 Center MEQ/L<content styleCode="Italic s"> (137-145 MEQ/L)</content> Carbon dioxide, 22-30 <content [facility] total styleCode="Bold"> Delfino [Moles/volume] in Carbon Dioxide Medical Serum or Plasma </content>24 Center MEQ/L<content styleCode="Italic s"> (22-30 MEQ/L)</content> Chloride 98-107 Above high <content [facility] [Moles/volume] in normal styleCode="Bold"> Kristopher phs Serum or Plasma Chloride Medical </content>109 Center MEQ/L H<content styleCode="Italic s"> (98-107 MEQ/L)</content> UNK 7-17 <content [facility] styleCode="Bold"> Delfino BUN </content>13 Medical MG/DL<content Center styleCode="Italic s"> (7-17 MG/DL)</content> Glucose 74-106 Above high <content [facility] [Mass/volume] in normal styleCode="Bold"> Mark hs Serum or Plasma Glucose Medical </content>114 Center MG/DL H<content styleCode="Italic s"> (74-106 MG/DL)</content> Creatinine 0.5-1.3 <content [facility] [Mass/volume] in styleCode="Bold"> [facility] hs Serum or Plasma Creatinine Medical </content>0.7 Center MG/DL<content styleCode="Italic s"> (0.5-1.3 MG/DL)</content> Calcium 8.4-10. <content [facility] [Mass/volume] in 2 styleCode="Bold"> Mark hs Serum or Plasma Calcium Medical </content>9.4 Center MG/DL<content styleCode="Italic s"> (8.4-10.2 MG/DL)</content> Aspartate 14-36 <content [facility] aminotransferase styleCode="Bold"> Mark hs [Enzymatic Aspartate Medical activity/volume] Aminotransferase Center in Serum or Plasma (AST) </content>19 IU/L<content styleCode="Italic s"> (14-36 IU/L)</content> UNK > 60 <content [facility] styleCode="Bold"> Delfino EGFR </content>99 Medical GFR<content Center styleCode="Italic s"> (> 60 GFR)</content> Alanine 7-30 <content [facility] aminotransferase styleCode="Bold"> Mark hs [Enzymatic Alanine Medical activity/volume] Aminotransferase Center in Serum or Plasma (ALT) </content>12 IU/L<content styleCode="Italic s"> (7-30 IU/L)</content> Alkaline 38-126 <content [facility] phosphatase styleCode="Bold"> Delfino [Enzymatic Alkaline Medical activity/volume] Phosphatase (ALP) Cente r in Serum or Plasma </content>83 IU/L<content styleCode="Italic s"> (38-126 IU/L)</content> Bilirubin.total 0.2-1.3 Below low <content [facility] [Mass/volume] in normal styleCode="Bold"> Mark hs Serum or Plasma Bilirubin Total Medical </content>< 0.2 Center MG/DL L<content styleCode="Italic s"> (0.2-1.3 MG/DL)</content> Albumin 3.5-5.0 <content [facility] [Mass/volume] in styleCode="Bold"> Mark hs Serum or Plasma Albumin Medical </content>3.7 Center G/DL<content styleCode="Italic s"> (3.5-5.0 G/DL)</content> ID Date Data Source [facility].[id number] 01/27/2020 10:15:00 AM EDT [facility] -0400 Name Value Range Interpretation Description Data Sup porting Code Source(s) Document(s ) UNK 2.3-3.5 <content [facility] styleCode="Bold Medical ">Globulin Center </content>3.0 G/DL<content styleCode="Ital ics"> (2.3-3.5 G/DL)</content> UNK >= 1.0 <content [facility] styleCode="Bold Medical ">AG Ratio Center </content>1.4 <content styleCode="Ital ics"> (>= 1.0 )</content> Protein 6.3-8.2 <content [facility] [Mass/volum styleCode="Bold Medical e] in Serum ">Total Protein Center or Plasma </content>7.1 G/DL<content styleCode="Ital ics"> (6.3-8.2 G/DL)</content> ID Date Data Source [facility].[id number] 01/27/2020 10:15:00 AM EDT [facility] Name Value Range Interpretation Description Data Sup porting Code Source(s) Document(s ) Sodium 137-145 <content [facility] [Moles/volume] in styleCode="Bold"> [facility] Serum or Plasma Sodium Medical </content>137 Center MEQ/L<content styleCode="Italic s"> (137-145 MEQ/L)</content> Chloride 98-107 Above high <content [facility] [Moles/volume] in normal styleCode="Bold"> [facility] Serum or Plasma Chloride Medical </content>108 Center MEQ/L H<content styleCode="Italic s"> (98-107 MEQ/L)</content> Potassium 3.5-5.3 <content [facility] [Moles/volume] in styleCode="Bold"> [facility] Serum or Plasma Potassium Medical </content>5.0 Center MEQ/L<content styleCode="Italic s"> (3.5-5.3 MEQ/L)</content> UNK 7-17 <content [facility] styleCode="Bold"> Delfino BUN </content>14 Medical MG/DL<content Center styleCode="Italic s"> (7-17 MG/DL)</content> Carbon dioxide, 22-30 <content [facility] total styleCode="Bold"> Delfino [Moles/volume] in Carbon Dioxide Medical Serum or Plasma </content>22 Center MEQ/L<content styleCode="Italic s"> (22-30 MEQ/L)</content> Creatinine 0.5-1.3 <content [facility] [Mass/volume] in styleCode="Bold"> Mark hs Serum or Plasma Creatinine Medical </content>0.6 Center MG/DL<content styleCode="Italic s"> (0.5-1.3 MG/DL)</content> Calcium 8.4-10. <content [facility] [Mass/volume] in 2 styleCode="Bold"> Mark hs Serum or Plasma Calcium Medical </content>9.8 Center MG/DL<content styleCode="Italic s"> (8.4-10.2 MG/DL)</content> UNK > 60 <content [facility] styleCode="Bold"> Delfino EGFR Medical </content>118 Center GFR<content styleCode="Italic s"> (> 60 GFR)</content> Glucose 74-106 <content [facility] [Mass/volume] in styleCode="Bold"> Mark hs Serum or Plasma Glucose Medical </content>96 Center MG/DL<content styleCode="Italic s"> (74-106 MG/DL)</content> Alanine 7-30 <content [facility] aminotransferase styleCode="Bold"> Mark hs [Enzymatic Alanine Medical activity/volume] Aminotransferase Center in Serum or Plasma (ALT) </content>14 IU/L<content styleCode="Italic s"> (7-30 IU/L)</content> Aspartate 14-36 <content [facility] aminotransferase styleCode="Bold"> Mark hs [Enzymatic Aspartate Medical activity/volume] Aminotransferase Center in Serum or Plasma (AST) </content>22 IU/L<content styleCode="Italic s"> (14-36 IU/L)</content> Albumin 3.5-5.0 <content [facility] [Mass/volume] in styleCode="Bold"> Mark hs Serum or Plasma Albumin Medical </content>4.1 Center G/DL<content styleCode="Italic s"> (3.5-5.0 G/DL)</content> Bilirubin.total 0.2-1.3 <content [facility] [Mass/volume] in styleCode="Bold"> Mark hs Serum or Plasma Bilirubin Total Medical </content>0.3 Center MG/DL<content styleCode="Italic s"> (0.2-1.3 MG/DL)</content> Alkaline 38-126 <content [facility] phosphatase styleCode="Bold"> Delfino [Enzymatic Alkaline Medical activity/volume] Phosphatase (ALP) Cente r in Serum or Plasma </content>81 IU/L<content styleCode="Italic s"> (38-126 IU/L)</content> ID Date Data Source Liver 01/27/2020 10:15:00 AM EDT [facility] Profile.[id number] Name Value Range Interpretation Description Data Sup porting Code Source(s) Document(s ) Aspartate 14-36 <content [facility] aminotransferase styleCode="Bold"> Mark hs [Enzymatic Aspartate Medical activity/volume] Aminotransferase Center in Serum or Plasma (AST) </content>22 IU/L<content styleCode="Italic s"> (14-36 IU/L)</content> Alanine 7-30 <content [facility] aminotransferase styleCode="Bold"> Mark hs [Enzymatic Alanine Medical activity/volume] Aminotransferase Center in Serum or Plasma (ALT) </content>14 IU/L<content styleCode="Italic s"> (7-30 IU/L)</content> Bilirubin.total 0.2-1.3 <content [facility] [Mass/volume] in styleCode="Bold"> Mark hs Serum or Plasma Bilirubin Total Medical </content>0.3 Center MG/DL<content styleCode="Italic s"> (0.2-1.3 MG/DL)</content> Alkaline 38-126 <content [facility] phosphatase styleCode="Bold"> Delfino [Enzymatic Alkaline Medical activity/volume] Phosphatase (ALP) Cente r in Serum or Plasma </content>81 IU/L<content styleCode="Italic s"> (38-126 IU/L)</content> Albumin 3.5-5.0 <content [facility] [Mass/volume] in styleCode="Bold"> Mark hs Serum or Plasma Albumin Medical </content>4.1 Center G/DL<content styleCode="Italic s"> (3.5-5.0 G/DL)</content> ID Date Data Source HematologyRou.[id number] 01/27/2020 10:15:00 AM EDT [facility] 0400 Name Value Range Interpretation Description Data Sup porting Code Source(s) Document(s ) Leukocytes 4.4-11.0 <content [facility] [#/volume] in styleCode="Bold Delfino Blood by ">White Blood Medical Automated count Cell Count Center </content>7.48 KCUMM<content styleCode="Ital ics"> (4.4-11.0 KCUMM)</content > Hemoglobin 12.3-16. <content [facility] [Mass/volume] in 0 styleCode="Bold Delfino Blood ">Hemoglobin Medical </content>13.4 Center G/DL<content styleCode="Ital ics"> (12.3-16.0 G/DL)</content> Erythrocytes 4.0-5.1 <content [facility] [#/volume] in styleCode="Bold Delfino Blood by ">Red Blood Medical Automated count Cell Count Center </content>4.39 MCUMM<content styleCode="Ital ics"> (4.0-5.1 MCUMM)</content > Erythrocyte mean 80.0-100 <content [facility] corpuscular .0 styleCode="Bold Delfino volume [Entitic ">Mean Medical volume] by Corpuscular Center Automated count Volume </content>92.0 FL<content styleCode="Ital ics"> (80.0-100.0 FL)</content> Hematocrit 36.0-46. <content [facility] [Volume 0 styleCode="Bold Delfino Fraction] of ">Hematocrit Medical Blood by </content>40.4 Center Automated count %<content styleCode="Ital ics"> (36.0-46.0 %)</content> Erythrocyte mean 26.0-34. <content [facility] corpuscular 0 styleCode="Bold Delfino hemoglobin ">Mean Medical [Entitic mass] Corposcular Center by Automated Hemoglobin count </content>30.5 PG<content styleCode="Ital ics"> (26.0-34.0 PG)</content> Erythrocyte mean 32.0-37. <content [facility] corpuscular 0 styleCode="Bold Delfino hemoglobin ">Mean Corpus. Medical concentration Hgb Center [Mass/volume] by Concentration Automated count (MCHC) </content>33.2 G/DL<content styleCode="Ital ics"> (32.0-37.0 G/DL)</content> Platelet mean 8.0-11.0 Above high <content [facility] volume [Entitic normal styleCode="Bold Delfino volume] in Blood ">Mean Platelet Medical by Automated Volume Center count </content>11.9 FL H<content styleCode="Ital ics"> (8.0-11.0 FL)</content> Erythrocyte 11.5-14. <content [facility] distribution 5 styleCode="Bold Delfino width [Ratio] by ">Red Cell Medical Automated count Distribution Center Width </content>12.6 %<content styleCode="Ital ics"> (11.5-14.5 %)</content> Platelets 130-400 <content [facility] [#/volume] in styleCode="Bold Delfino Blood by ">Platelet Medical Automated count Count Center </content>244 KCUMM<content styleCode="Ital ics"> (130-400 KCUMM)</content > UNK 0 <content [facility] styleCode="Bold Delfino ">Nucleated Red Medical Blood Cell Center </content>0.0 /100<content styleCode="Ital ics"> (0 /100)</content> UNK 0.0 <content [facility] styleCode="Bold Delfino ">Nucleated Red Medical Blood Cell Center Count </content>0.00 KCUMM<content styleCode="Ital ics"> (0.0 KCUMM)</content > ID Date Data Source GFR(Creatinine).[id number] 01/27/2020 10:15:00 AM EDT [facility] 0-0400 Name Value Range Interpretation Code Description Data Maribell rce(s) Supporting Document(s ) UNK > 60 <content [facility] styleCode="Bold"> Medical Cent er EGFR </content>118 GFR<content styleCode="Italic s"> (> 60 GFR)</content> ID Date Data Source Coagulation 01/27/2020 10:15:00 AM [facility] Center Rout.[id number] EDT Name Value Range Interpretation Description Data Sup porting Code Source(s) Document(s ) INR in 0.80-1.2 <content [facility] Platelet poor 0 styleCode="Bold" Delfino plasma by >INR Medical Coagulation </content>0.98 Center assay #<content styleCode="Itali cs"> (0.80-1.20 #)</content> aPTT in 25.1-36. <content [facility] Platelet poor 5 styleCode="Bold" Delfino plasma by >Partial Medical Coagulation Thromboplastin Center assay Time </content>31.0 SEC<content styleCode="Itali cs"> (25.1-36.5 SEC)</content> UNK 9.0-13.0 <content [facility] styleCode="Bold" Delfino >Protime Medical </content>10.9 Center SEC<content styleCode="Itali cs"> (9.0-13.0 SEC)</content> ID Date Data Source [id number] 01/23/2020 12:00:00 AM EDT [facility] Name Value Range Interpretation Code Description Data Maribell rce(s) Supporting Document(s ) 2019-nCoV [facility] RNA XXX SARAN+probe- Imp This lab was ordered by [facility] and reported by [employer]. ID Date Data Source Liver 10/29/2019 10:30:00 AM EST [facility] Profile.[id number] Name Value Range Interpretation Description Data Sup porting Code Source(s) Document(s ) Aspartate 14-36 <content [facility] aminotransferase styleCode="Bold"> Mark hs [Enzymatic Aspartate Medical activity/volume] Aminotransferase Center in Serum or Plasma (AST) </content>18 IU/L<content styleCode="Italic s"> (14-36 IU/L)</content> Alanine 7-30 <content [facility] aminotransferase styleCode="Bold"> Mark hs [Enzymatic Alanine Medical activity/volume] Aminotransferase Center in Serum or Plasma (ALT) </content>13 IU/L<content styleCode="Italic s"> (7-30 IU/L)</content> Alkaline 38-126 <content [facility] phosphatase styleCode="Bold"> Delfino [Enzymatic Alkaline Medical activity/volume] Phosphatase (ALP) Cente r in Serum or Plasma </content>72 IU/L<content styleCode="Italic s"> (38-126 IU/L)</content> Albumin 3.5-5.0 <content [facility] [Mass/volume] in styleCode="Bold"> Mark hs Serum or Plasma Albumin Medical </content>3.7 Center G/DL<content styleCode="Italic s"> (3.5-5.0 G/DL)</content> Bilirubin.total 0.2-1.3 Below low <content [facility] [Mass/volume] in normal styleCode="Bold"> Mark hs Serum or Plasma Bilirubin Total Medical </content>< 0.2 Center MG/DL L<content styleCode="Italic s"> (0.2-1.3 MG/DL)</content> ID Date Data Source HematologyRou.[id number] 10/29/2019 10:30:00 AM MARIA A [facility] 0500 Name Value Range Interpretation Description Data Sup porting Code Source(s) Document(s ) Hemoglobin 12.3-16. <content [facility] [Mass/volume] in 0 styleCode="Bold [facility] Blood ">Hemoglobin Medical </content>12.3 Center G/DL<content styleCode="Ital ics"> (12.3-16.0 G/DL)</content> Erythrocytes 4.0-5.1 <content [facility] [#/volume] in styleCode="Bold [facility] Blood by ">Red Blood Medical Automated count Cell Count Center </content>4.02 MCUMM<content styleCode="Ital ics"> (4.0-5.1 MCUMM)</content > Leukocytes 4.4-11.0 <content [facility] [#/volume] in styleCode="Bold Delfino Blood by ">White Blood Medical Automated count Cell Count Center </content>6.99 KCUMM<content styleCode="Ital ics"> (4.4-11.0 KCUMM)</content > Hematocrit 36.0-46. <content [facility] [Volume 0 styleCode="Bold Delfino Fraction] of ">Hematocrit Medical Blood by </content>36.6 Center Automated count %<content styleCode="Ital ics"> (36.0-46.0 %)</content> Erythrocyte mean 32.0-37. <content [facility] corpuscular 0 styleCode="Bold Delfino hemoglobin ">Mean Corpus. Medical concentration Hgb Center [Mass/volume] by Concentration Automated count (MCHC) </content>33.6 G/DL<content styleCode="Ital ics"> (32.0-37.0 G/DL)</content> Erythrocyte mean 26.0-34. <content [facility] corpuscular 0 styleCode="Bold Delfino hemoglobin ">Mean Medical [Entitic mass] Corposcular Center by Automated Hemoglobin count </content>30.6 PG<content styleCode="Ital ics"> (26.0-34.0 PG)</content> Erythrocyte mean 80.0-100 <content [facility] corpuscular .0 styleCode="Bold Delfino volume [Entitic ">Mean Medical volume] by Corpuscular Center Automated count Volume </content>91.0 FL<content styleCode="Ital ics"> (80.0-100.0 FL)</content> Platelet mean 8.0-11.0 Above high <content [facility] volume [Entitic normal styleCode="Bold Delfino volume] in Blood ">Mean Platelet Medical by Automated Volume Center count </content>11.8 FL H<content styleCode="Ital ics"> (8.0-11.0 FL)</content> Platelets 130-400 <content [facility] [#/volume] in styleCode="Bold Delfino Blood by ">Platelet Medical Automated count Count Center </content>222 KCUMM<content styleCode="Ital ics"> (130-400 KCUMM)</content > Erythrocyte 11.5-14. <content [facility] distribution 5 styleCode="Bold Delfino width [Ratio] by ">Red Cell Medical Automated count Distribution Center Width </content>13.0 %<content styleCode="Ital ics"> (11.5-14.5 %)</content> UNK 0.0 <content [facility] styleCode="Bold Delfino ">Nucleated Red Medical Blood Cell Center Count </content>0.00 KCUMM<content styleCode="Ital ics"> (0.0 KCUMM)</content > UNK 0 <content styleCode="Bold Delfino ">Nucleated Red Medical Blood Cell Center </content>0.0 /100<content styleCode="Ital ics"> (0 /100)</content> ID Date Data Source GFR(Creatinine).[id number] 10/29/2019 10:30:00 AM EST [facility]derjit nt [facility] 0-0500 Name Value Range Interpretation Code Description Data Maribell rce(s) Supporting Document(s ) UNK > 60 <content [facility] styleCode="Bold"> Medical Cent er EGFR </content>99 GFR<content styleCode="Italic s"> (> 60 GFR)</content> ID Date Data Source Coagulation 10/29/2019 10:30:00 AM [facility] Rout.[id number] EST Name Value Range Interpretation Description Data Sup porting Code Source(s) Document(s ) UNK 9.0-13.0 <content styleCode="Bold" Delfino >Protime Medical </content>10.9 Center SEC<content styleCode="Itali cs"> (9.0-13.0 SEC)</content> INR in 0.80-1.2 <content [facility] Platelet poor 0 styleCode="Bold" Delfino plasma by >INR Medical Coagulation </content>0.98 Center assay #<content styleCode="Itali cs"> (0.80-1.20 #)</content> aPTT in 25.1-36. <content [facility] Platelet poor 5 styleCode="Bold" Delfino plasma by >Partial Medical Coagulation Thromboplastin Center assay Time </content>32.0 SEC<content styleCode="Itali cs"> (25.1-36.5 SEC)</content> ID Date Data Source CHMROUTINECCDA.[id number] 10/29/2019 10:30:00 AM MARIA A Jansen [facility] -0500 Name Value Range Interpretation Description Data Sup porting Code Source(s) Document(s ) UNK >= 1.0 <content [facility] styleCode="Bold Medical ">AG Ratio Center </content>1.3 <content styleCode="Ital ics"> (>= 1.0 )</content> Protein 6.3-8.2 <content [facility] [Mass/volum styleCode="Bold Medical e] in Serum ">Total Protein Center or Plasma </content>6.5 G/DL<content styleCode="Ital ics"> (6.3-8.2 G/DL)</content> UNK 2.3-3.5 <content [facility] styleCode="Bold Medical ">Globulin Center </content>2.8 G/DL<content styleCode="Ital ics"> (2.3-3.5 G/DL)</content> ID Date Data Source [facility].[id number] 10/29/2019 10:30:00 AM EST [facility] Name Value Range Interpretation Description Data Sup porting Code Source(s) Document(s ) Sodium 137-145 <content [facility] [Moles/volume] in styleCode="Bold"> Kristopher phs Serum or Plasma Sodium Medical </content>139 Center MEQ/L<content styleCode="Italic s"> (137-145 MEQ/L)</content> Carbon dioxide, 22-30 <content [facility] total styleCode="Bold"> Delfino [Moles/volume] in Carbon Dioxide Medical Serum or Plasma </content>25 Center MEQ/L<content styleCode="Italic s"> (22-30 MEQ/L)</content> Chloride 98-107 Above high <content [facility] [Moles/volume] in normal styleCode="Bold"> Kristopher phs Serum or Plasma Chloride Medical </content>108 Center MEQ/L H<content styleCode="Italic s"> (98-107 MEQ/L)</content> Potassium 3.5-5.3 <content [facility] [Moles/volume] in styleCode="Bold"> Kristopher phs Serum or Plasma Potassium Medical </content>4.7 Center MEQ/L<content styleCode="Italic s"> (3.5-5.3 MEQ/L)</content> Creatinine 0.5-1.3 <content [facility] [Mass/volume] in styleCode="Bold"> Mark hs Serum or Plasma Creatinine Medical </content>0.7 Center MG/DL<content styleCode="Italic s"> (0.5-1.3 MG/DL)</content> UNK 7-17 <content [facility] styleCode="Bold"> Delfino BUN </content>13 Medical MG/DL<content Center styleCode="Italic s"> (7-17 MG/DL)</content> Calcium 8.4-10. <content [facility] [Mass/volume] in 2 styleCode="Bold"> Mark hs Serum or Plasma Calcium Medical </content>9.7 Center MG/DL<content styleCode="Italic s"> (8.4-10.2 MG/DL)</content> UNK > 60 <content [facility] styleCode="Bold"> Delfino EGFR </content>99 Medical GFR<content Center styleCode="Italic s"> (> 60 GFR)</content> Glucose 74-106 <content [facility] [Mass/volume] in styleCode="Bold"> Mark hs Serum or Plasma Glucose Medical </content>99 Center MG/DL<content styleCode="Italic s"> (74-106 MG/DL)</content> Aspartate 14-36 <content [facility] aminotransferase styleCode="Bold"> Mark hs [Enzymatic Aspartate Medical activity/volume] Aminotransferase Center in Serum or Plasma (AST) </content>18 IU/L<content styleCode="Italic s"> (14-36 IU/L)</content> Alkaline 38-126 <content [facility] phosphatase styleCode="Bold"> [facility] [Enzymatic Alkaline Medical activity/volume] Phosphatase (ALP) Cente r in Serum or Plasma </content>72 IU/L<content styleCode="Italic s"> (38-126 IU/L)</content> Albumin 3.5-5.0 <content [facility] [Mass/volume] in styleCode="Bold"> Mark hs Serum or Plasma Albumin Medical </content>3.7 Center G/DL<content styleCode="Italic s"> (3.5-5.0 G/DL)</content> Alanine 7-30 <content [facility] aminotransferase styleCode="Bold"> Mark hs [Enzymatic Alanine Medical activity/volume] Aminotransferase Center in Serum or Plasma (ALT) </content>13 IU/L<content styleCode="Italic s"> (7-30 IU/L)</content> Bilirubin.total 0.2-1.3 Below low <content [facility] [Mass/volume] in normal styleCode="Bold"> Mark hs Serum or Plasma Bilirubin Total Medical </content>< 0.2 Center MG/DL L<content styleCode="Italic s"> (0.2-1.3 MG/DL)</content> ID Date Data Source Hormones.[id number] 10/15/2019 05:35:00 AM MAR[facility] A [facility] Name Value Range Interpretation Description Data Sup porting Code Source(s) Document(s ) UNK 5.53-11. <content [facility] 0 styleCode="Chandrakant Delfino d">Thyroxine Medical (T4) Center </content>8.54 UG/DL<content styleCode="Michelle lics"> (5.53-11.0 UG/DL)</conten t> Thyrotropin 0.465-4. <content Saint [Units/volume] 68 styleCode="Chandrakant Delfino in Serum or d">Thyroid Medical Plasma by Stimulating Center Detection Hormone limit <= 0.05 </content>2.21 mIU/L MIU/L<content styleCode="Michelle lics"> (0.465-4.68 MIU/L)</conten t> ID Date Data Source CHMROUTINECCDA.[id number] 10/15/2019 05:35:00 AM [facility] -0500 Name Value Range Interpretation Code Description Data Maribell rce(s) Supporting Document(s ) UNK 4.2-5.8 <content [facility] Delfino styleCode="Bold" Medical Cente r >Hemoglobin A1C </content>5.8 %<content styleCode="Itali cs"> (4.2-5.8 %)</content> ID Date Data Source [employer].[id number] 10/15/2019 05:35:00 AM [facility] -0500 Name Value Range Interpretation Description Data Sup porting Code Source(s) Document(s ) Troponin < 0.034 <content [facility] I.cardiac styleCode="Bold Delfino [Mass/volume ">Troponin I Medical ] in Serum </content>< Center or Plasma 0.012 NG/ML<content styleCode="Ital ics"> (< 0.034 NG/ML)</content > ID Date Data Source Urinalysis.[id number] 10/15/2019 12:29:00 AM [facility] 0 Name Value Range Interpretation Description Data Sup porting Code Source(s) Document(s ) Color of Urine YELLOW <content Saint styleCode="Chandrakant Delfino d">Color, Medical Urine Center </content>YELL OW <content styleCode="Michelle lics"> (YELLOW )</content> UNK CLEAR <content Saint styleCode="Chandrakant Delfino d">Urine Medical Clarity Center </content>SOPHY R <content styleCode="Michelle lics"> (CLEAR )</content> Specific 1.015-1.02 <content Saint gravity of 5 styleCode="Chandrakant Delfino Urine by Test d">Urine Medical strip Specific Center Wright </content>1.02 5 <content styleCode="Michelle lics"> (1.015-1.025 )</content> Glucose NEGATIVE <content Saint [Mass/volume] styleCode="Chandrakant Delfino in Urine by d">Urine Medical Test strip Glucose Center </content>NEGA TIVE MG/DL<content styleCode="Michelle lics"> (NEGATIVE MG/DL)</conten t> UNK NEGATIVE <content Saint styleCode="Chandrakant Delfino d">Urine Medical Bilirubin Center </content>SMAL L <content styleCode="Michelle lics"> (NEGATIVE )</content> Ketones NEGATIVE <content Saint [Mass/volume] styleCode="Chandrakant Delfino in Urine by d">Urine Medical Test strip Ketone Center </content>NEGA TIVE MG/DL<content styleCode="Michelle lics"> (NEGATIVE MG/DL)</conten t> Protein NEGATIVE <content [facility] [Mass/volume] styleCode="Chandrakant Delfino in Urine by d">Urine Medical Test strip Protein Center </content>NEGA TIVE MG/DL<content styleCode="Michelle lics"> (NEGATIVE MG/DL)</conten t> pH of Urine by 4.5-8.0 <content [facility] Test strip styleCode="Chandrakant Delfino d">Urine pH Medical </content>6.0 Center <content styleCode="Michelle lics"> (4.5-8.0 )</content> Hemoglobin NEGATIVE <content Saint [Presence] in styleCode="Chandrakant Collinss Urine by Test d">Urine Blood Medical strip </content>NEGA Center TIVE <content styleCode="Michelle lics"> (NEGATIVE )</content> Urobilinogen 0.2-1.0 <content [facility] [Units/volume] styleCode="Chandrakant Delfino in Urine by d">Urine Medical Test strip Urobilinogen Center </content>0.2 MG/DL<content styleCode="Michelle lics"> (0.2-1.0 MG/DL)</conten t> Leukocyte NEGATIVE <content [facility] esterase styleCode="Chandrakant Delfino [Presence] in d">Urine Medical Urine by Test Leukocyte Center strip </content>NEGA TIVE <content styleCode="Michelle lics"> (NEGATIVE )</content> Nitrite NEGATIVE <content Saint [Presence] in styleCode="Chandrakant Delfino Urine by Test d">Urine Medical strip Nitrite Center </content>NEGA TIVE <content styleCode="Michelle lics"> (NEGATIVE )</content> ID Date Data Source Coagulation 10/14/2019 10:36:00 PM [facility] ical Center Rout.[id number] EST Name Value Range Interpretation Description Data Sup porting Code Source(s) Document(s ) UNK < 500 <content [facility] styleCode="Bold" Delfino >D-Dimer Medical </content>223 Center ngFEU<content styleCode="Itali cs"> (< 500 ngFEU)</content> aPTT in 25.1-36. <content [facility] Platelet poor 5 styleCode="Bold" Delfino plasma by >Partial Medical Coagulation Thromboplastin Center assay Time </content>33.1 SEC<content styleCode="Itali cs"> (25.1-36.5 SEC)</content> INR in 0.80-1.2 <content [facility] Platelet poor 0 styleCode="Bold" Delfino plasma by >INR Medical Coagulation </content>1.12 Center assay #<content styleCode="Itali cs"> (0.80-1.20 #)</content> UNK 9.0-13.0 <content [facility] styleCode="Bold" Delfino >Protime Medical </content>12.4 Center SEC<content styleCode="Itali cs"> (9.0-13.0 SEC)</content> ID Date Data Source CHMROUTINECCDA.[id number] 10/14/2019 09:51:00 PM EST Inderjit nt [facility] -0500 Name Value Range Interpretation Description Data Sup porting Code Source(s) Document(s ) Natriuretic < 125 <content [facility] peptide.B styleCode="Chandrakant Saleh prohormone d">NT Pro BNP Medical N-Terminal </content>25.6 Center [Mass/volume] PG/ML<content in Serum or styleCode="Michelle Plasma lics"> (< 125 PG/ML)</conten t> ID Date Data Source Liver 10/14/2019 09:51:00 PM EST [facility] Profile.[id number] Name Value Range Interpretation Description Data Sup porting Code Source(s) Document(s ) Aspartate 14-36 <content [facility] aminotransferase styleCode="Bold"> Mark hs [Enzymatic Aspartate Medical activity/volume] Aminotransferase Center in Serum or Plasma (AST) </content>20 IU/L<content styleCode="Italic s"> (14-36 IU/L)</content> Alanine 7-30 <content [facility] aminotransferase styleCode="Bold"> Mark hs [Enzymatic Alanine Medical activity/volume] Aminotransferase Center in Serum or Plasma (ALT) </content>15 IU/L<content styleCode="Italic s"> (7-30 IU/L)</content> Bilirubin.total 0.2-1.3 <content [facility] [Mass/volume] in styleCode="Bold"> Mark hs Serum or Plasma Bilirubin Total Medical </content>0.3 Center MG/DL<content styleCode="Italic s"> (0.2-1.3 MG/DL)</content> UNK 0.0-0.3 <content [facility] styleCode="Bold"> Delfino Bilirubin, Direct Medical </content>< 0.2 Center MG/DL<content styleCode="Italic s"> (0.0-0.3 MG/DL)</content> Alkaline 38-126 <content [facility] phosphatase styleCode="Bold"> Delfino [Enzymatic Alkaline Medical activity/volume] Phosphatase (ALP) Cente r in Serum or Plasma </content>71 IU/L<content styleCode="Italic s"> (38-126 IU/L)</content> Albumin 3.5-5.0 <content [facility] [Mass/volume] in styleCode="Bold"> Mark hs Serum or Plasma Albumin Medical </content>4.1 Center G/DL<content styleCode="Italic s"> (3.5-5.0 G/DL)</content> ID Date Data Source LIPID.[id number] 10/14/2019 09:51:00 PM EST [facility] Center Name Value Range Interpretation Description Data Sup porting Code Source(s) Document(s ) Cholesterol -<200 <content [facility] [Mass/volume] in styleCode="[facility] Serum or Plasma d">Cholesterol Medical </content>173 Center MG/DL<content styleCode="Michelle lics"> (-<200 MG/DL)</conten t> Triglyceride < 150 <content [facility] [Mass/volume] in styleCode="[facility] Serum or Plasma d">Triglycerid [facility] Center </content>92 MG/DL<content styleCode="Michelle lics"> (< 150 MG/DL)</conten t> UNK < 100 Above high normal <content Saint styleCode="[facility] d">LDL-Cholest [facility] Center </content>109 MG/DL H<content styleCode="Michelle lics"> (< 100 MG/DL)</conten t> UNK > 60 Below low normal <content Saint styleCode="[facility] d">HDL- Medical Cholesterol Center </content>46 MG/DL L<content styleCode="Michelle lics"> (> 60 MG/DL)</conten t> ID Date Data Source HematologyRou.[id number] 10/14/2019 09:51:00 PM EST Inderjit [facility] 0500 Name Value Range Interpretation Description Data Sup porting Code Source(s) Document(s ) Leukocytes 4.4-11.0 <content [facility] [#/volume] in styleCode="Bold Delfino Blood by ">White Blood Medical Automated count Cell Count Center </content>8.47 KCUMM<content styleCode="Ital ics"> (4.4-11.0 KCUMM)</content > Hemoglobin 12.3-16. <content [facility] [Mass/volume] in 0 styleCode="Bold Delfino Blood ">Hemoglobin Medical </content>12.4 Center G/DL<content styleCode="Ital ics"> (12.3-16.0 G/DL)</content> Erythrocytes 4.0-5.1 <content [facility] [#/volume] in styleCode="Bold Delfino Blood by ">Red Blood Medical Automated count Cell Count Center </content>4.11 MCUMM<content styleCode="Ital ics"> (4.0-5.1 MCUMM)</content > Hematocrit 36.0-46. <content [facility] [Volume 0 styleCode="Bold Delfino Fraction] of ">Hematocrit Medical Blood by </content>37.3 Center Automated count %<content styleCode="Ital ics"> (36.0-46.0 %)</content> Erythrocyte mean 26.0-34. <content [facility] corpuscular 0 styleCode="Bold Delfino hemoglobin ">Mean Medical [Entitic mass] Corposcular Center by Automated Hemoglobin count </content>30.2 PG<content styleCode="Ital ics"> (26.0-34.0 PG)</content> Erythrocyte mean 80.0-100 <content [facility] corpuscular .0 styleCode="Bold Delfino volume [Entitic ">Mean Medical volume] by Corpuscular Center Automated count Volume </content>90.8 FL<content styleCode="Ital ics"> (80.0-100.0 FL)</content> Erythrocyte mean 32.0-37. <content [facility] corpuscular 0 styleCode="Bold Delfino hemoglobin ">Mean Corpus. Medical concentration Hgb Center [Mass/volume] by Concentration Automated count (MCHC) </content>33.2 G/DL<content styleCode="Ital ics"> (32.0-37.0 G/DL)</content> Platelets 130-400 <content [facility] [#/volume] in styleCode="Bold Delfino Blood by ">Platelet Medical Automated count Count Center </content>285 KCUMM<content styleCode="Ital ics"> (130-400 KCUMM)</content > Erythrocyte 11.5-14. <content [facility] distribution 5 styleCode="Bold Delfino width [Ratio] by ">Red Cell Medical Automated count Distribution Center Width </content>13.1 %<content styleCode="Ital ics"> (11.5-14.5 %)</content> Platelet mean 8.0-11.0 Above high <content [facility] volume [Entitic normal styleCode="Bold Delfino volume] in Blood ">Mean Platelet Medical by Automated Volume Center count </content>11.2 FL H<content styleCode="Ital ics"> (8.0-11.0 FL)</content> UNK 0 <content [facility] styleCode="Bold Delfino ">Nucleated Red Medical Blood Cell Center </content>0.0 /100<content styleCode="Ital ics"> (0 /100)</content> UNK 0.0 <content [facility] styleCode="Bold Delfino ">Nucleated Red Medical Blood Cell Center Count </content>0.00 KCUMM<content styleCode="Ital ics"> (0.0 KCUMM)</content > ID Date Data Source GFR(Creatinine).[id number] 10/14/2019 09:51:00 PM [facility] 0-0500 Name Value Range Interpretation Code Description Data Maribell rce(s) Supporting Document(s ) UNK > 60 <content [facility] styleCode="Bold"> Medical Cent er EGFR </content>99 GFR<content styleCode="Italic s"> (> 60 GFR)</content> ID Date Data Source CardiacMarkers.[id number] 10/14/2019 09:51:00 PM EST [facility] -0500 Name Value Range Interpretation Description Data Sup porting Code Source(s) Document(s ) Troponin < 0.034 <content [facility] I.cardiac styleCode="Bold Delfino [Mass/volume ">Troponin I Medical ] in Serum </content>< Center or Plasma 0.012 NG/ML<content styleCode="Ital ics"> (< 0.034 NG/ML)</content > ID Date Data Source BMP.[id number] 10/14/2019 09:51:00 PM EST [facility] Name Value Range Interpretation Description Data Sup porting Code Source(s) Document(s ) UNK 7-17 <content [facility] styleCode="Bold"> Delfino BUN </content>11 Medical MG/DL<content Center styleCode="Italic s"> (7-17 MG/DL)</content> Chloride 98-107 <content [facility] [Moles/volume] in styleCode="Bold"> Kristopher phs Serum or Plasma Chloride Medical </content>107 Center MEQ/L<content styleCode="Italic s"> (98-107 MEQ/L)</content> Potassium 3.5-5.3 <content [facility] [Moles/volume] in styleCode="Bold"> Kristopher phs Serum or Plasma Potassium Medical </content>4.4 Center MEQ/L<content styleCode="Italic s"> (3.5-5.3 MEQ/L)</content> Sodium 137-145 <content [facility] [Moles/volume] in styleCode="Bold"> Kristopher phs Serum or Plasma Sodium Medical </content>139 Center MEQ/L<content styleCode="Italic s"> (137-145 MEQ/L)</content> Carbon dioxide, 22-30 <content [facility] total styleCode="Bold"> Delfino [Moles/volume] in Carbon Dioxide Medical Serum or Plasma </content>26 Center MEQ/L<content styleCode="Italic s"> (22-30 MEQ/L)</content> Aspartate 14-36 <content [facility] aminotransferase styleCode="Bold"> Mark hs [Enzymatic Aspartate Medical activity/volume] Aminotransferase Center in Serum or Plasma (AST) </content>20 IU/L<content styleCode="Italic s"> (14-36 IU/L)</content> Calcium 8.4-10. Above high <content [facility] [Mass/volume] in 2 normal styleCode="Bold"> Mark hs Serum or Plasma Calcium Medical </content>10.3 Center MG/DL H<content styleCode="Italic s"> (8.4-10.2 MG/DL)</content> Glucose 74-106 <content [facility] [Mass/volume] in styleCode="Bold"> Mark hs Serum or Plasma Glucose Medical </content>93 Center MG/DL<content styleCode="Italic s"> (74-106 MG/DL)</content> UNK > 60 <content [facility] styleCode="Bold"> Delfino EGFR </content>99 Medical GFR<content Center styleCode="Italic s"> (> 60 GFR)</content> Creatinine 0.5-1.3 <content [facility] [Mass/volume] in styleCode="Bold"> Mark hs Serum or Plasma Creatinine Medical </content>0.7 Center MG/DL<content styleCode="Italic s"> (0.5-1.3 MG/DL)</content> Alanine 7-30 <content [facility] aminotransferase styleCode="Bold"> Mark hs [Enzymatic Alanine Medical activity/volume] Aminotransferase Center in Serum or Plasma (ALT) </content>15 IU/L<content styleCode="Italic s"> (7-30 IU/L)</content> Alkaline 38-126 <content [facility] phosphatase styleCode="Bold"> Delfino [Enzymatic Alkaline Medical activity/volume] Phosphatase (ALP) Cente r in Serum or Plasma </content>71 IU/L<content styleCode="Italic s"> (38-126 IU/L)</content> Albumin 3.5-5.0 <content [facility] [Mass/volume] in styleCode="Bold"> Mark hs Serum or Plasma Albumin Medical </content>4.1 Center G/DL<content styleCode="Italic s"> (3.5-5.0 G/DL)</content> Bilirubin.total 0.2-1.3 <content [facility] [Mass/volume] in styleCode="Bold"> Mark hs Serum or Plasma Bilirubin Total Medical </content>0.3 Center MG/DL<content styleCode="Italic s"> (0.2-1.3 MG/DL)</content> ID Date Data Source LIPID.[id number] 06/08/2019 05:00:00 PM EDT [facility] Center Name Value Range Interpretation Description Data Sup porting Code Source(s) Document(s ) Cholesterol -<200 <content [facility] [Mass/volume] in styleCode="Chandrakant Delfino Serum or Plasma d">Cholesterol Medical </content>174 Center MG/DL<content styleCode="Michelle lics"> (-<200 MG/DL)</conten t> Triglyceride < 150 <content [facility] [Mass/volume] in styleCode="Chandrakant Delfino Serum or Plasma d">Triglycerid Medical es Center </content>137 MG/DL<content styleCode="Michelle lics"> (< 150 MG/DL)</conten t> UNK > 60 Below low normal <content Saint styleCode="Chandrakant Delfino d">HDL- Medical Cholesterol Center </content>48 MG/DL L<content styleCode="Michelle lics"> (> 60 MG/DL)</conten t> UNK < 100 <content Saint styleCode="Chandrakant Delfino d">LDL-Cholest Medical ignacio Center </content>99 MG/DL<content styleCode="Michelle lics"> (< 100 MG/DL)</conten t> ID Date Data Source CardiacMarkers.[id number] 06/08/2019 05:00:00 PM EDT [facility] -0400 Name Value Range Interpretation Description Data Sup porting Code Source(s) Document(s ) Troponin < 0.034 <content [facility] I.cardiac styleCode="Bold Delfino [Mass/volume ">Troponin I Medical ] in Serum </content>< Center or Plasma 0.012 NG/ML<content styleCode="Ital ics"> (< 0.034 NG/ML)</content > ID Date Data Source HematologyRou.[id number] 06/08/2019 05:00:00 PM EDT [facility] 0400 Name Value Range Interpretation Description Data Sup porting Code Source(s) Document(s ) Hemoglobin 12.3-16. <content [facility] [Mass/volume] in 0 styleCode="Bold Delfino Blood ">Hemoglobin Medical </content>12.6 Center G/DL<content styleCode="Ital ics"> (12.3-16.0 G/DL)</content> Leukocytes 4.4-11.0 <content [facility] [#/volume] in styleCode="Bold Delfino Blood by ">White Blood Medical Automated count Cell Count Center </content>9.09 KCUMM<content styleCode="Ital ics"> (4.4-11.0 KCUMM)</content > Erythrocytes 4.0-5.1 <content [facility] [#/volume] in styleCode="Bold Delfino Blood by ">Red Blood Medical Automated count Cell Count Center </content>4.13 MCUMM<content styleCode="Ital ics"> (4.0-5.1 MCUMM)</content > Erythrocyte mean 80.0-100 <content [facility] corpuscular .0 styleCode="Bold Delfino volume [Entitic ">Mean Medical volume] by Corpuscular Center Automated count Volume </content>90.8 FL<content styleCode="Ital ics"> (80.0-100.0 FL)</content> Erythrocyte 11.5-14. <content [facility] distribution 5 styleCode="Bold Delfino width [Ratio] by ">Red Cell Medical Automated count Distribution Center Width </content>12.8 %<content styleCode="Ital ics"> (11.5-14.5 %)</content> Erythrocyte mean 32.0-37. <content [facility] corpuscular 0 styleCode="Bold Delfino hemoglobin ">Mean Corpus. Medical concentration Hgb Center [Mass/volume] by Concentration Automated count (MCHC) </content>33.6 G/DL<content styleCode="Ital ics"> (32.0-37.0 G/DL)</content> Hematocrit 36.0-46. <content [facility] [Volume 0 styleCode="Bold Delfino Fraction] of ">Hematocrit Medical Blood by </content>37.5 Center Automated count %<content styleCode="Ital ics"> (36.0-46.0 %)</content> Erythrocyte mean 26.0-34. <content [facility] corpuscular 0 styleCode="Bold Delfino hemoglobin ">Mean Medical [Entitic mass] Corposcular Center by Automated Hemoglobin count </content>30.5 PG<content styleCode="Ital ics"> (26.0-34.0 PG)</content> Platelet mean 8.0-11.0 <content [facility] volume [Entitic styleCode="Bold Delfino volume] in Blood ">Mean Platelet Medical by Automated Volume Center count </content>10.9 FL<content styleCode="Ital ics"> (8.0-11.0 FL)</content> UNK 0.0 <content [facility] styleCode="Bold Delfino ">Nucleated Red Medical Blood Cell Center Count </content>0.00 KCUMM<content styleCode="Ital ics"> (0.0 KCUMM)</content > Platelets 130-400 <content [facility] [#/volume] in styleCode="Bold Delfino Blood by ">Platelet Medical Automated count Count Center </content>275 KCUMM<content styleCode="Ital ics"> (130-400 KCUMM)</content > UNK 0 <content styleCode="Bold Delfino ">Nucleated Red Medical Blood Cell Center </content>0.0 /100<content styleCode="Ital ics"> (0 /100)</content> ID Date Data Source GFR(Creatinine).[id number] 06/08/2019 05:00:00 PM EDT Inderjit [facility] 0-0400 Name Value Range Interpretation Code Description Data Maribell rce(s) Supporting Document(s ) UNK > 60 <content [facility] styleCode="Bold"> Medical Cent er EGFR </content>99 GFR<content styleCode="Italic s"> (> 60 GFR)</content> ID Date Data Source Coagulation 06/08/2019 05:00:00 PM [facility] ical Center Rout.[id number] EDT Name Value Range Interpretation Description Data Sup porting Code Source(s) Document(s ) aPTT in 25.1-36. <content [facility] Platelet poor 5 styleCode="Bold" Delfino plasma by >Partial Medical Coagulation Thromboplastin Center assay Time </content>32.3 SEC<content styleCode="Itali cs"> (25.1-36.5 SEC)</content> UNK 9.0-13.0 <content styleCode="Bold" Delfino >Protime Medical </content>11.6 Center SEC<content styleCode="Itali cs"> (9.0-13.0 SEC)</content> UNK <content styleCode="Bold" Delfino >D-Dimer Medical </content><200 Center ngFEU (Reference Range: not available)
INR in 0.80-1.2 <content Platelet poor 0 styleCode="Bold" Delfino plasma by >INR Medical Coagulation </content>1.05 Center assay #<content styleCode="Itali cs"> (0.80-1.20 #)</content> ID Date Data Source [facility].[id number] 06/08/2019 05:00:00 PM EDT [facility] Name Value Range Interpretation Description Data Sup porting Code Source(s) Document(s ) UNK 7-17 <content Saint styleCode="Chandrakant Delfino d">BUN Medical </content>10 Center MG/DL<content styleCode="Michelle lics"> (7-17 MG/DL)</conten t> Creatinine 0.5-1.3 <content Saint [Mass/volume] styleCode="Chandrakant Delfino in Serum or d">Creatinine Medical Plasma </content>0.7 Center MG/DL<content styleCode="Michelle lics"> (0.5-1.3 MG/DL)</conten t> Chloride 98-107 <content [facility] [Moles/volume] styleCode="Chandrakant Delfino in Serum or d">Chloride Medical Plasma </content>107 Center MEQ/L<content styleCode="Michelle lics"> (98-107 MEQ/L)</conten t> Carbon 22-30 <content [facility] dioxide, total styleCode="Chandrakant Delfino [Moles/volume] d">Carbon Medical in Serum or Dioxide Center Plasma </content>26 MEQ/L<content styleCode="Michelle lics"> (22-30 MEQ/L)</conten t> Potassium 3.5-5.3 <content [facility] [Moles/volume] styleCode="Chandrakant Delfino in Serum or d">Potassium Medical Plasma </content>4.1 Center MEQ/L<content styleCode="Michelle lics"> (3.5-5.3 MEQ/L)</conten t> Sodium 137-145 <content [facility] [Moles/volume] styleCode="Chandrakant Delfino in Serum or d">Sodium Medical Plasma </content>141 Center MEQ/L<content styleCode="Michelle lics"> (137-145 MEQ/L)</conten t> Calcium 8.4-10.2 <content [facility] [Mass/volume] styleCode="Chandrakant Collinss in Serum or d">Calcium Medical Plasma </content>10.2 Center MG/DL<content styleCode="Michelle lics"> (8.4-10.2 MG/DL)</conten t> Glucose 74-106 <content [facility] [Mass/volume] styleCode="Chandrakant Collinss in Serum or d">Glucose Medical Plasma </content>79 Center MG/DL<content styleCode="Michelle lics"> (74-106 MG/DL)</conten t> UNK > 60 <content Saint styleCode="Chandrakant Collinss d">EGFR Medical </content>99 Center GFR<content styleCode="Michelle lics"> (> 60 GFR)</content> ID Date Data Source Urinalysis.[id number] 06/05/2019 12:50:00 PM EDT Inderjit [facility] 0 Name Value Range Interpretation Description Data Sup porting Code Source(s) Document(s ) UNK CLEAR <content Saint styleCode="Chandrakant Collinss d">Urine Medical Clarity Center </content>SOPHY R <content styleCode="Michelle lics"> (CLEAR )</content> Color of Urine YELLOW <content Saint styleCode="Chandrakant Collinss d">Color, Medical Urine Center </content>YELL OW <content styleCode="Michelle lics"> (YELLOW )</content> UNK NEGATIVE <content Saint styleCode="Chandrakant Collinss d">Urine Medical Bilirubin Center </content>NEGA TIVE <content styleCode="Michelle lics"> (NEGATIVE )</content> Ketones NEGATIVE <content Saint [Mass/volume] styleCode="Chandrakant Saleh in Urine by d">Urine Medical Test strip Ketone Center </content>NEGA TIVE MG/DL<content styleCode="Michelle lics"> (NEGATIVE MG/DL)</conten t> Glucose NEGATIVE <content [facility] [Mass/volume] styleCode="Chandrakant Collinss in Urine by d">Urine Medical Test strip Glucose Center </content>NEGA TIVE MG/DL<content styleCode="Michelle lics"> (NEGATIVE MG/DL)</conten t> Hemoglobin NEGATIVE <content Saint [Presence] in styleCode="Chandrakant Collinss Urine by Test d">Urine Blood Medical strip </content>SMAL Center L <content styleCode="Michelle lics"> (NEGATIVE )</content> pH of Urine by 4.5-8.0 <content Saint Test strip styleCode="Chandrakant Delfino d">Urine pH Medical </content>7.0 Center <content styleCode="Michelle lics"> (4.5-8.0 )</content> Specific 1.015-1.02 Below low normal <content Saint gravity of 5 styleCode="Chandrakant Collinss Urine by Test d">Urine Medical strip Specific Center Wright </content><= 1.005 L<content styleCode="Michelle lics"> (1.015-1.025 )</content> Urobilinogen 0.2-1.0 <content Saint [Units/volume] styleCode="Chandrakant Collinss in Urine by d">Urine Medical Test strip Urobilinogen Center </content>0.2 MG/DL<content styleCode="Michelle lics"> (0.2-1.0 MG/DL)</conten t> Protein NEGATIVE <content Saint [Mass/volume] styleCode="Chandrakant Delfino in Urine by d">Urine Medical Test strip Protein Center </content>NEGA TIVE MG/DL<content styleCode="Michelle lics"> (NEGATIVE MG/DL)</conten t> Nitrite NEGATIVE <content Saint [Presence] in styleCode="Chandrakant Collinss Urine by Test d">Urine Medical strip Nitrite Center </content>NEGA TIVE <content styleCode="Michelle lics"> (NEGATIVE )</content> UNK 0-3 <content Saint styleCode="Chandrakant Delfino d">Urine Red Medical Blood Cell Center </content>0-3 HPF<content styleCode="Michelle lics"> (0-3 HPF)</content> UNK 0-3 <content Saint styleCode="Chandrakant Delfino d">Urine White Medical Blood Cell Center </content>0-3 HPF<content styleCode="Michelle lics"> (0-3 HPF)</content> Leukocyte NEGATIVE <content Saint esterase styleCode="Chandrakant Saleh [Presence] in d">Urine Medical Urine by Test Leukocyte Center strip </content>NEGA TIVE <content styleCode="Michelle lics"> (NEGATIVE )</content> UNK <content Saint styleCode="Chandrakant Saleh d">Epithelial Medical Cell Center </content>0-2 LPF (Reference Range: not available)<br/ > ID Date Data Source Liver 06/05/2019 12:49:00 PM EDT [facility] Profile.[id number] Name Value Range Interpretation Description Data Sup porting Code Source(s) Document(s ) Aspartate 14-36 <content [facility] aminotransferase styleCode="Bold"> Mark hs [Enzymatic Aspartate Medical activity/volume] Aminotransferase Center in Serum or Plasma (AST) </content>15 IU/L<content styleCode="Italic s"> (14-36 IU/L)</content> Alanine 7-30 <content [facility] aminotransferase styleCode="Bold"> Mark hs [Enzymatic Alanine Medical activity/volume] Aminotransferase Center in Serum or Plasma (ALT) </content>14 IU/L<content styleCode="Italic s"> (7-30 IU/L)</content> Bilirubin.total 0.2-1.3 <content Saint [Mass/volume] in styleCode="Bold"> Mark hs Serum or Plasma Bilirubin Total Medical </content>0.2 Center MG/DL<content styleCode="Italic s"> (0.2-1.3 MG/DL)</content> Alkaline 38-126 <content [facility] phosphatase styleCode="Bold"> Delfino [Enzymatic Alkaline Medical activity/volume] Phosphatase (ALP) Cente r in Serum or Plasma </content>73 IU/L<content styleCode="Italic s"> (38-126 IU/L)</content> UNK 0.0-0.3 <content Saint styleCode="Bold"> Delfino Bilirubin, Direct Medical </content>< 0.2 Center MG/DL<content styleCode="Italic s"> (0.0-0.3 MG/DL)</content> Albumin 3.5-5.0 <content Saint [Mass/volume] in styleCode="Bold"> Mark hs Serum or Plasma Albumin Medical </content>4.0 Center G/DL<content styleCode="Italic s"> (3.5-5.0 G/DL)</content> ID Date Data Source CardiacMarkers.[id number] 06/05/2019 12:49:00 PM EDT [facility] -0400 Name Value Range Interpretation Description Data Sup porting Code Source(s) Document(s ) Troponin < 0.034 <content Saint I.cardiac styleCode="Bold Delfino [Mass/volume ">Troponin I Medical ] in Serum </content>< Center or Plasma 0.012 NG/ML<content styleCode="Ital ics"> (< 0.034 NG/ML)</content > ID Date Data Source HematologyRou.[id number] 06/05/2019 12:49:00 PM EDT [facility] 0400 Name Value Range Interpretation Description Data Sup porting Code Source(s) Document(s ) Erythrocytes 4.0-5.1 <content Saint [#/volume] in styleCode="Bold Delfino Blood by ">Red Blood Medical Automated count Cell Count Center </content>4.18 MCUMM<content styleCode="Ital ics"> (4.0-5.1 MCUMM)</content > Leukocytes 4.4-11.0 <content Saint [#/volume] in styleCode="Bold Delfino Blood by ">White Blood Medical Automated count Cell Count Center </content>8.39 KCUMM<content styleCode="Ital ics"> (4.4-11.0 KCUMM)</content > Erythrocyte mean 32.0-37. <content [facility] corpuscular 0 styleCode="Bold Delfino hemoglobin ">Mean Corpus. Medical concentration Hgb Center [Mass/volume] by Concentration Automated count (MCHC) </content>32.8 G/DL<content styleCode="Ital ics"> (32.0-37.0 G/DL)</content> Hematocrit 36.0-46. <content Saint [Volume 0 styleCode="Bold Delfino Fraction] of ">Hematocrit Medical Blood by </content>38.1 Center Automated count %<content styleCode="Ital ics"> (36.0-46.0 %)</content> Hemoglobin 12.3-16. <content Saint [Mass/volume] in 0 styleCode="Bold Delfino Blood ">Hemoglobin Medical </content>12.5 Center G/DL<content styleCode="Ital ics"> (12.3-16.0 G/DL)</content> Erythrocyte 11.5-14. <content [facility] distribution 5 styleCode="Bold Delfino width [Ratio] by ">Red Cell Medical Automated count Distribution Center Width </content>12.8 %<content styleCode="Ital ics"> (11.5-14.5 %)</content> Erythrocyte mean 26.0-34. <content [facility] corpuscular 0 styleCode="Bold Delfino hemoglobin ">Mean Medical [Entitic mass] Corposcular Center by Automated Hemoglobin count </content>29.9 PG<content styleCode="Ital ics"> (26.0-34.0 PG)</content> Erythrocyte mean 80.0-100 <content [facility] corpuscular .0 styleCode="Bold Delfino volume [Entitic ">Mean Medical volume] by Corpuscular Center Automated count Volume </content>91.1 FL<content styleCode="Ital ics"> (80.0-100.0 FL)</content> UNK 0.0 <content [facility] styleCode="Bold Delfino ">Nucleated Red Medical Blood Cell Center Count </content>0.00 KCUMM<content styleCode="Ital ics"> (0.0 KCUMM)</content > Platelets 130-400 <content [facility] [#/volume] in styleCode="Bold Delfino Blood by ">Platelet Medical Automated count Count Center </content>277 KCUMM<content styleCode="Ital ics"> (130-400 KCUMM)</content > UNK 0 <content [facility] styleCode="Bold Delfino ">Nucleated Red Medical Blood Cell Center </content>0.0 /100<content styleCode="Ital ics"> (0 /100)</content> Platelet mean 8.0-11.0 <content [facility] volume [Entitic styleCode="Bold Delfino volume] in Blood ">Mean Platelet Medical by Automated Volume Center count </content>10.9 FL<content styleCode="Ital ics"> (8.0-11.0 FL)</content> ID Date Data Source GFR(Creatinine).[id number] 06/05/2019 12:49:00 PM EDT [facility] 0-0400 Name Value Range Interpretation Code Description Data Maribell rce(s) Supporting Document(s ) UNK > 60 <content [facility] styleCode="Bold"> Medical Cent er EGFR </content>99 GFR<content styleCode="Italic s"> (> 60 GFR)</content> ID Date Data Source MROUTINECCDA.[id number] 06/05/2019 12:49:00 PM EDT [facility] -0400 Name Value Range Interpretation Description Data Sup porting Code Source(s) Document(s ) Lipase 23-300 <content [facility] [Enzymatic styleCode="Bold Medical activity/vo ">Lipase Center lume] in </content>130 Serum or IU/L<content Plasma styleCode="Ital ics"> (23-300 IU/L)</content> UNK 30-110 <content [facility] styleCode="Bold Medical ">Amylase Center </content>71 IU/L<content styleCode="Ital ics"> (30-110 IU/L)</content> ID Date Data Source [facility].[id number] 06/05/2019 12:49:00 PM EDT [facility] Name Value Range Interpretation Description Data Sup porting Code Source(s) Document(s ) Sodium 137-145 <content [facility] [Moles/volume] in styleCode="Bold"> Kristopher phs Serum or Plasma Sodium Medical </content>143 Center MEQ/L<content styleCode="Italic s"> (137-145 MEQ/L)</content> Potassium 3.5-5.3 <content [facility] [Moles/volume] in styleCode="Bold"> Kristopher phs Serum or Plasma Potassium Medical </content>4.5 Center MEQ/L<content styleCode="Italic s"> (3.5-5.3 MEQ/L)</content> Chloride 98-107 Above high <content [facility] [Moles/volume] in normal styleCode="Bold"> Kristopher phs Serum or Plasma Chloride Medical </content>108 Center MEQ/L H<content styleCode="Italic s"> (98-107 MEQ/L)</content> Calcium 8.4-10. <content [facility] [Mass/volume] in 2 styleCode="Bold"> Mark hs Serum or Plasma Calcium Medical </content>9.9 Center MG/DL<content styleCode="Italic s"> (8.4-10.2 MG/DL)</content> Creatinine 0.5-1.3 <content [facility] [Mass/volume] in styleCode="Bold"> Mark hs Serum or Plasma Creatinine Medical </content>0.7 Center MG/DL<content styleCode="Italic s"> (0.5-1.3 MG/DL)</content> Glucose 74-106 <content [facility] [Mass/volume] in styleCode="Bold"> Mark hs Serum or Plasma Glucose Medical </content>81 Center MG/DL<content styleCode="Italic s"> (74-106 MG/DL)</content> UNK 7-17 <content [facility] styleCode="Bold"> Delfino BUN </content>10 Medical MG/DL<content Center styleCode="Italic s"> (7-17 MG/DL)</content> Carbon dioxide, 22-30 <content [facility] total styleCode="Bold"> Delfino [Moles/volume] in Carbon Dioxide Medical Serum or Plasma </content>28 Center MEQ/L<content styleCode="Italic s"> (22-30 MEQ/L)</content> Alkaline 38-126 <content [facility] phosphatase styleCode="Bold"> Delfino [Enzymatic Alkaline Medical activity/volume] Phosphatase (ALP) Cente r in Serum or Plasma </content>73 IU/L<content styleCode="Italic s"> (38-126 IU/L)</content> Albumin 3.5-5.0 <content [facility] [Mass/volume] in styleCode="Bold"> Mark hs Serum or Plasma Albumin Medical </content>4.0 Center G/DL<content styleCode="Italic s"> (3.5-5.0 G/DL)</content> Aspartate 14-36 <content [facility] aminotransferase styleCode="Bold"> Mark hs [Enzymatic Aspartate Medical activity/volume] Aminotransferase Center in Serum or Plasma (AST) </content>15 IU/L<content styleCode="Italic s"> (14-36 IU/L)</content> Bilirubin.total 0.2-1.3 <content [facility] [Mass/volume] in styleCode="Bold"> Mark hs Serum or Plasma Bilirubin Total Medical </content>0.2 Center MG/DL<content styleCode="Italic s"> (0.2-1.3 MG/DL)</content> UNK > 60 <content [facility] styleCode="Bold"> Delfino EGFR </content>99 Medical GFR<content Center styleCode="Italic s"> (> 60 GFR)</content> Alanine 7-30 <content [facility] aminotransferase styleCode="Bold"> Mark hs [Enzymatic Alanine Medical activity/volume] Aminotransferase Center in Serum or Plasma (ALT) </content>14 IU/L<content styleCode="Italic s"> (7-30 IU/L)</content> ID Date Data Source Hormones.[id number] 05/29/2019 04:43:00 PM EDT Cami Saleh [facility] Name Value Range Interpretation Description Data Sup porting Code Source(s) Document(s ) Thyrotropin 0.465-4. <content [facility] [Units/volume] 68 styleCode="Chandrakant Saleh in Serum or d">Thyroid Medical Plasma by Stimulating Center Detection Hormone limit <= 0.05 </content>1.70 mIU/L MIU/L<content styleCode="Michelle lics"> (0.465-4.68 MIU/L)</conten t> ID Date Data Source [id number] 05/29/2019 04:43:00 PM EDT [facility] ([facility] [id number] [place]) Name Value Range Interpretation Code Description Data Maribell rce(s) Supporting Document(s ) 5.6 % 4.2-5.8 HB A1C [facility]) For the purpose of screening for the pre sence of diabetes:< 5.8 % Consistent with the absence of diabetes5 .8 - 6.4 % Consistent with increased risk for diabetes(prediabetes)> or = 6.5 % Consistent with diabetesCurrently, no consensus exists for use of hemoglobin A 1cfor diagnosis of diabetes in children.According to [place] [employer] Association (ADA) guidelines.Hemoglobin A1c <7.0% represents optimal control in non- diabetic patients. Different metrics may apply tospecific patient populations . Standards of medical Care inDiabetes (ADA).

ID Date Data Source [id number] 05/29/2019 04:43:00 PM [facility]T [facility] [id number] [place]) Name Value Range Interpretation Code Description Data Maribell rce(s) Supporting Document(s ) 1.70 MIU/L 0.465-4.68 TSH [facility] ([facility]) ID Date Data Source CHMROUTINECCDA.[id number] 05/29/2019 04:43:00 PM EDT [facility] -0400 Name Value Range Interpretation Code Description Data Maribell rce(s) Supporting Document(s ) UNK 4.2-5.8 <content [facility] styleCode="Bold" Medical Cente r >Hemoglobin A1C </content>5.6 %<content styleCode="Itali cs"> (4.2-5.8 %)</content> ID Date Data Source Urinalysis.[id number] 04/28/2019 07:29:00 PM EDT [facility] 0 Name Value Range Interpretation Description Data Sup porting Code Source(s) Document(s ) UNK CLEAR <content [facility] styleCode="Chandrakant Delfino d">Urine Medical Clarity Center </content>SOPHY R <content styleCode="Michelle lics"> (CLEAR )</content> Color of Urine YELLOW <content Saint styleCode="Chandrakant Delfino d">Color, Medical Urine Center </content>YELL OW <content styleCode="Michelle lics"> (YELLOW )</content> UNK NEGATIVE <content [facility] styleCode="Chandrakant Delfino d">Urine Medical Bilirubin Center </content>NEGA TIVE <content styleCode="Michelle lics"> (NEGATIVE )</content> Glucose NEGATIVE <content [facility] [Mass/volume] styleCode="Chandrakant Delfino in Urine by d">Urine Medical Test strip Glucose Center </content>NEGA TIVE MG/DL<content styleCode="Michelle lics"> (NEGATIVE MG/DL)</conten t> Ketones NEGATIVE <content [facility] [Mass/volume] styleCode="Chandrakant Delfino in Urine by d">Urine Medical Test strip Ketone Center </content>NEGA TIVE MG/DL<content styleCode="Michelle lics"> (NEGATIVE MG/DL)</conten t> Specific 1.015-1.02 Below low normal <content [facility] gravity of 5 styleCode="Chandrakant Delfino Urine by Test d">Urine Medical strip Specific Center Wright </content>1.01 0 L<content styleCode="Michelle lics"> (1.015-1.025 )</content> Urobilinogen 0.2-1.0 <content [facility] [Units/volume] styleCode="Chandrakant Delfino in Urine by d">Urine Medical Test strip Urobilinogen Center </content>0.2 MG/DL<content styleCode="Michelle lics"> (0.2-1.0 MG/DL)</conten t> pH of Urine by 4.5-8.0 <content [facility] Test strip styleCode="Chandrakant Delfino d">Urine pH Medical </content>6.5 Center <content styleCode="Michelle lics"> (4.5-8.0 )</content> Nitrite NEGATIVE <content [facility] [Presence] in styleCode="Chandrakant Delfino Urine by Test d">Urine Medical strip Nitrite Center </content>NEGA TIVE <content styleCode="Michelle lics"> (NEGATIVE )</content> Protein NEGATIVE <content [facility] [Mass/volume] styleCode="Chandrakant Saleh in Urine by d">Urine Medical Test strip Protein Center </content>NEGA TIVE MG/DL<content styleCode="Michelle lics"> (NEGATIVE MG/DL)</conten t> Hemoglobin NEGATIVE <content [facility] [Presence] in styleCode="Chandrakant Saleh Urine by Test d">Urine Blood Medical strip </content>NEGA Center TIVE <content styleCode="Michelle lics"> (NEGATIVE )</content> Leukocyte NEGATIVE <content [facility] esterase styleCode="Chandrakant Saleh [Presence] in d">Urine Medical Urine by Test Leukocyte Center strip </content>NEGA TIVE <content styleCode="Michelle lics"> (NEGATIVE )</content> ID Date Data Source [id number] 04/28/2019 06:55:00 PM EDT [facility] Name Value Range Interpretation Description Data Sup porting Code Source(s) Document(s ) UNK < 100 Above high normal <content [facility] styleCode="Chandrakant Saleh d">LDL-Cholest Medical ignacio Center </content>107 MG/DL H<content styleCode="Michelle lics"> (< 100 MG/DL)</conten t> Cholesterol -<200 <content Saint [Mass/volume] in styleCode="Chandrakant Saleh Serum or Plasma d">Cholesterol Medical </content>178 Center MG/DL<content styleCode="Michelle lics"> (-<200 MG/DL)</conten t> Triglyceride < 150 <content [facility] [Mass/volume] in styleCode="Chandrakant Saleh Serum or Plasma d">Triglycerid Medical es Center </content>115 MG/DL<content styleCode="Michelle lics"> (< 150 MG/DL)</conten t> UNK > 60 Below low normal <content Saint styleCode="Chandrakant Collinss d">HDL- Medical Cholesterol Center </content>48 MG/DL L<content styleCode="Michelle lics"> (> 60 MG/DL)</conten t> ID Date Data Source HematologyRou.[id number] 04/28/2019 06:55:00 PM EDT [facility] 0400 Name Value Range Interpretation Description Data Sup porting Code Source(s) Document(s ) Leukocytes 4.4-11.0 <content [facility] [#/volume] in styleCode="Bold Delfino Blood by ">White Blood Medical Automated count Cell Count Center </content>9.23 KCUMM<content styleCode="Ital ics"> (4.4-11.0 KCUMM)</content > Erythrocytes 4.0-5.1 <content Saint [#/volume] in styleCode="Bold Delfino Blood by ">Red Blood Medical Automated count Cell Count Center </content>4.55 MCUMM<content styleCode="Ital ics"> (4.0-5.1 MCUMM)</content > Hematocrit 36.0-46. <content Saint [Volume 0 styleCode="Bold Delfino Fraction] of ">Hematocrit Medical Blood by </content>41.2 Center Automated count %<content styleCode="Ital ics"> (36.0-46.0 %)</content> Erythrocyte mean 32.0-37. <content [facility] corpuscular 0 styleCode="Bold Delfino hemoglobin ">Mean Corpus. Medical concentration Hgb Center [Mass/volume] by Concentration Automated count (MCHC) </content>33.3 G/DL<content styleCode="Ital ics"> (32.0-37.0 G/DL)</content> Erythrocyte mean 80.0-100 <content [facility] corpuscular .0 styleCode="Bold Delfino volume [Entitic ">Mean Medical volume] by Corpuscular Center Automated count Volume </content>90.5 FL<content styleCode="Ital ics"> (80.0-100.0 FL)</content> Erythrocyte mean 26.0-34. <content [facility] corpuscular 0 styleCode="Bold Delfino hemoglobin ">Mean Medical [Entitic mass] Corposcular Center by Automated Hemoglobin count </content>30.1 PG<content styleCode="Ital ics"> (26.0-34.0 PG)</content> Hemoglobin 12.3-16. <content [facility] [Mass/volume] in 0 styleCode="Bold Delfino Blood ">Hemoglobin Medical </content>13.7 Center G/DL<content styleCode="Ital ics"> (12.3-16.0 G/DL)</content> UNK 0.0 <content Saint styleCode="Bold Delfino ">Nucleated Red Medical Blood Cell Center Count </content>0.00 KCUMM<content styleCode="Ital ics"> (0.0 KCUMM)</content > Erythrocyte 11.5-14. <content [facility] distribution 5 styleCode="Bold Delfino width [Ratio] by ">Red Cell Medical Automated count Distribution Center Width </content>13.2 %<content styleCode="Ital ics"> (11.5-14.5 %)</content> Platelets 130-400 <content Saint [#/volume] in styleCode="Bold Delfino Blood by ">Platelet Medical Automated count Count Center </content>282 KCUMM<content styleCode="Ital ics"> (130-400 KCUMM)</content > Platelet mean 8.0-11.0 Above high <content [facility] volume [Entitic normal styleCode="Bold Delfino volume] in Blood ">Mean Platelet Medical by Automated Volume Center count </content>11.2 FL H<content styleCode="Ital ics"> (8.0-11.0 FL)</content> UNK 0 <content Saint styleCode="Bold Delfino ">Nucleated Red Medical Blood Cell Center </content>0.0 /100<content styleCode="Ital ics"> (0 /100)</content> ID Date Data Source GFR(Creatinine).[id number] 04/28/2019 06:55:00 PM ED[facility] Name Value Range Interpretation Code Description Data Maribell rce(s) Supporting Document(s ) UNK > 60 <content [facility] styleCode="Bold"> Medical Cent er EGFR </content>99 GFR<content styleCode="Italic s"> (> 60 GFR)</content> ID Date Data Source Coagulation 04/28/2019 06:55:00 PM [facility] Rout.[id number] EDT Name Value Range Interpretation Description Data Sup porting Code Source(s) Document(s ) UNK 9.0-13.0 <content Saint styleCode="Bold" Delfino >Protime Medical </content>11.4 Center SEC<content styleCode="Itali cs"> (9.0-13.0 SEC)</content> INR in 0.80-1.2 <content Saint Platelet poor 0 styleCode="Bold" Delfino plasma by >INR Medical Coagulation </content>1.03 Center assay #<content styleCode="Itali cs"> (0.80-1.20 #)</content> aPTT in 25.1-36. <content [facility] Platelet poor 5 styleCode="Bold" Delfino plasma by >Partial Medical Coagulation Thromboplastin Center assay Time </content>34.4 SEC<content styleCode="Itali cs"> (25.1-36.5 SEC)</content> ID Date Data Source CardiacMarkers.[id number] 04/28/2019 06:55:00 PM EDT [facility] Name Value Range Interpretation Description Data Sup porting Code Source(s) Document(s ) Troponin < 0.034 <content Saint I.cardiac styleCode="Bold Delfino [Mass/volume ">Troponin I Medical ] in Serum </content>< Center or Plasma 0.012 NG/ML<content styleCode="Ital ics"> (< 0.034 NG/ML)</content > ID Date Data Source BMP.[id number] 04/28/2019 06:55:00 PM EDT [facility] Name Value Range Interpretation Description Data Sup porting Code Source(s) Document(s ) Sodium 137-145 <content [facility] [Moles/volume] styleCode="Chandrakant Delfino in Serum or d">Sodium Medical Plasma </content>140 Center MEQ/L<content styleCode="Michelle lics"> (137-145 MEQ/L)</conten t> Creatinine 0.5-1.3 <content [facility] [Mass/volume] styleCode="Chandrakant Delfino in Serum or d">Creatinine Medical Plasma </content>0.7 Center MG/DL<content styleCode="Michelle lics"> (0.5-1.3 MG/DL)</conten t> Chloride 98-107 <content [facility] [Moles/volume] styleCode="Chandrakant Delfino in Serum or d">Chloride Medical Plasma </content>105 Center MEQ/L<content styleCode="Michelle lics"> (98-107 MEQ/L)</conten t> Carbon 22-30 <content [facility] dioxide, total styleCode="Chandrakant Delfino [Moles/volume] d">Carbon Medical in Serum or Dioxide Center Plasma </content>24 MEQ/L<content styleCode="Michelle lics"> (22-30 MEQ/L)</conten t> Potassium 3.5-5.3 <content [facility] [Moles/volume] styleCode="Chandrakant Delfino in Serum or d">Potassium Medical Plasma </content>4.2 Center MEQ/L<content styleCode="Michelle lics"> (3.5-5.3 MEQ/L)</conten t> UNK 7-17 <content Saint styleCode="Chandrakant Collinss d">BUN Medical </content>12 Center MG/DL<content styleCode="Michelle lics"> (7-17 MG/DL)</conten t> Calcium 8.4-10.2 <content [facility] [Mass/volume] styleCode="Chandrakant Collinss in Serum or d">Calcium Medical Plasma </content>10.2 Center MG/DL<content styleCode="Michelle lics"> (8.4-10.2 MG/DL)</conten t> UNK > 60 <content Saint styleCode="Chandrakant Delfino d">EGFR Medical </content>99 Center GFR<content styleCode="Michelle lics"> (> 60 GFR)</content> Glucose 74-106 <content [facility] [Mass/volume] styleCode="Chandrakant Delfino in Serum or d">Glucose Medical Plasma </content>90 Center MG/DL<content styleCode="Michelle lics"> (74-106 MG/DL)</conten t> Procedure Social History Code Duration Value Status Description Data Source(s ) Smoking 03/17/2020 Daily Smoker completed Daily Smoker [facility] 02:[facility]00 AM Medical Cente r EDT Smoking 03/17/2020 Daily Smoker completed Daily Smoker [facility] 02:13:00 AM Medical Cente r EDT Caffeine Use 03/08/2020 completed NEXTGEN (Inderjit nt Details 12:00:00 AM [facility] EDT [place]) Smoking 03/08/2020 Unknown if ever completed Unknown if ever NEXT GEN ([facility] 12:00:00 AM smoked smoked [facility] EDT [place]) Smoking 01/27/2020 Current Smoker completed Current Smoker eCW1 ( [facility] 12:00:00 AM [facility] EDT [facility]) Smoking 01/27/2020 Current Smoker completed Current Smoker eCW1 ( [facility] 12:00:00 AM [facility] EDT Practice ) Alcohol Use 01/01/2020 completed hard liquor 5 NEXTGEN (S aint Details 12:00:00 AM drinks monthly [facility] EDT Center) 01/01/2020 Light cigarette completed Light cigarette NEXT GEN ([facility] 12:00:00 AM smoker (1-9 smoker (1-9 [facility] EDT cigs/day) cigs/day) Center) Smoking 10/19/2019 Daily Smoker completed Daily Smoker [facility] 04:43:00 AM Medical Cente r EST Smoking 10/19/2019 Daily Smoker completed Daily Smoker [facility] 04:43:00 AM Medical Cente r EST Smoking 10/19/2019 Daily Smoker completed Daily Smoker [facility] 04:05:00 AM Medical Cente r EST Smoking 10/15/2019 Daily Smoker completed Daily Smoker [facility] 02:22:00 AM Medical Cente r EST Smoking 10/14/2019 Daily Smoker completed Daily Smoker [facility] 11:59:00 PM Medical Cente r EST Smoking 10/14/2019 Daily Smoker completed Daily Smoker [facility] 10:01:00 PM Medical Cente r EST Smoking 10/14/2019 Daily Smoker completed Daily Smoker [facility] 08:40:00 PM Medical Cente r EST Smoking 10/14/2019 Daily Smoker completed Daily Smoker [facility] 08:40:00 PM Medical Cente r EST Smoking 06/08/2019 Daily Smoker completed Daily Smoker [facility] 06:53:00 PM Medical Cente r EDT Smoking 06/08/2019 Daily Smoker completed Daily Smoker [facility] 04:30:00 PM Medical Cente r EDT Smoking 06/08/2019 Daily Smoker completed Daily Smoker [facility] 04:11:00 PM Medical Cente r EDT Smoking 06/05/2019 Daily Smoker completed Daily Smoker [facility] 12:00:00 PM Medical Cente r EDT Smoking 06/05/2019 Daily Smoker completed Daily Smoker [facility] 11:50:00 AM Medical Cente r EDT Smoking 06/05/2019 Daily Smoker completed Daily Smoker [facility] 11:48:00 AM Medical Cente r EDT Smoking 04/28/2019 Daily Smoker completed Daily Smoker [facility] 07:08:00 PM Medical Cente r EDT Smoking 04/28/2019 Daily Smoker completed Daily Smoker [facility] 06:35:00 PM Medical Cente r EDT Smoking 04/28/2019 Daily Smoker completed Daily Smoker [facility] 06:16:00 PM Medical Cente r EDT Smoking Unknown if ever completed Unknown if ever [facility] Current Smoker completed Current Smoker eCW1 ( [facility]) Current Smoker completed Current Smoker eCW1 ( [facility]) Smoking Unknown if ever completed Unknown if ever eCW1 ([facility]) Vital Signs ID Date Data Source UNK Name Value Range Interpretation Code Description Data Source(s) Body temperature 36.681811 36.604827 [facility] Respiratory rate 17 /min 17 /min [facility] Oxygen saturation 99 % 99 % [facility] osephs in [facility] by Pulse oximetry Heart rate 67 /min 67 /min [facility] Diastolic blood 99 mm[Hg] 99 mm[Hg] [facility] pressure [facility] Systolic blood 158 mm[Hg] 158 mm[Hg] [facility] Body temperature 36.385773 36.623060 [facility] Respiratory rate 17 /min 17 /min [facility] Oxygen saturation 97 % 97 % [facility] osephs in [facility] by Pulse oximetry Heart rate 66 /min 66 /min [facility] Diastolic blood 69 mm[Hg] 69 mm[Hg] [facility] Systolic blood 153 mm[Hg] 153 mm[Hg] [facility] Diastolic blood 73 mm[Hg] 73 mm[Hg] eCW1 (Inderjit nt pressure [facility]) Systolic blood 127 mm[Hg] 127 mm[Hg] eCW1 (Cami t pressure [facility]) Oxygen saturation 99 % 99 % eCW1 (S aint in Arterial blood [facility] by Pulse oximetry Pract[facility]) Body temperature 98.6 [degF] 98.6 [degF] eCW1 ( [facility]) Respiratory rate 18 /min 18 /min eCW1 ([facility]) Heart rate 71 /min 71 /min eCW1 ([facility]) Body mass index 32.42 kg/m2 32.42 kg/m2 eCW1 (S aint (BMI) [Ratio] [facility]) Body weight 166 [lb_av] 166 [lb_av] eCW1 ([facility]) Body height 60 [in_i] 60 [in_i] eCW1 ([facility]) Diastolic blood 73 mm[Hg] 73 mm[Hg] eCW1 ([facility] nt pressure [facility]) Systolic blood 127 mm[Hg] 127 mm[Hg] eCW1 ([facility] t [facility]) Deprecated Oxygen 99 % 99 % eCW1 (S aint saturation in [facility] Capillary blood by Practi ce PC) Oximetry Body temperature 98.6 [degF] 98.6 [degF] eCW1 ( [facility]) Respiratory rate 18 /min 18 /min eCW1 ([facility]) Heart rate 71 /min 71 /min eCW1 ([facility]) Body mass index 32.42 kg/m2 32.42 kg/m2 eCW1 (S aint (BMI) [Ratio] [facility]) Body weight 166 [lb_av] 166 [lb_av] eCW1 ([facility]) Body height 60 [in_us] 60 [in_us] eCW1 ([facility]) Oxygen saturation 97 % 97 % NEXTGEN ([facility] in Arterial blood [facility] by Pulse oximetry Center) Body mass index 32.38 kg/m2 Overweight 32.38 kg/m2 NEXTGEN ([facility] (BMI) [Ratio] [facility]) Respiratory rate 24 /min 24 /min NEXTGEN ([facility]) Body temperature 36.78 Magy 36.78 Magy [facility] Heart rate 79 /min 79 /min [facility] Diastolic blood 85 mm[Hg] 85 mm[Hg] NEXTGEN ( [facility]) Systolic blood 134 mm[Hg] 134 mm[Hg] [facility] Body weight 75.206 kg 75.206 kg [facility] Body height 152.40 cm 152.40 cm [facility] ([facility]) Oxygen saturation 96 % 96 % NEXTGEN ([facility] in Arterial blood [facility] by Pulse oximetry Center) Body mass index 32.81 kg/m2 Overweight 32.81 kg/m2 NEXTGEN ([facility] (BMI) [Ratio] [facility]) Respiratory rate 18 /min 18 /min [facility] [facility] ([facility]) Body temperature 37.00 Magy 37.00 Magy [facility] ([facility]) Heart rate 77 /min 77 /min [facility] ([facility]) Diastolic blood 82 mm[Hg] 82 mm[Hg] [facility] ( [facility]) Systolic blood 124 mm[Hg] 124 mm[Hg] [facility] Body weight 76.204 kg 76.204 kg [facility] Body height 152.40 cm 152.40 cm [facility] ([facility]) Body temperature 37.705196 37.419307 Magy [facility] Respiratory rate 18 /min 18 /min [facility] Oxygen saturation 98 % 98 % [facility] osephs in Arterial blood Medical Center by Pulse oximetry Heart rate 63 /min 63 /min [facility] Diastolic blood 86 mm[Hg] 86 mm[Hg] [facility] pressure Medical Center Systolic blood 148 mm[Hg] 148 mm[Hg] [facility] [place] Body temperature 36.641149 36.563112 [facility] Respiratory rate 18 /min 18 /min [facility] Oxygen saturation 98 % 98 % [facility] in Arterial blood [facility] Center by Pulse oximetry Heart rate 63 /min 63 /min [facility] Diastolic blood 103 mm[Hg] 103 mm[Hg] [facility] Systolic blood 148 mm[Hg] 148 mm[Hg] [facility] [place] Body temperature 36.863703 36.587859 [facility] Respiratory rate 20 /min 20 /min [facility] Heart rate 60 /min 60 /min [facility] Diastolic blood 80 mm[Hg] 80 mm[Hg] [facility] [place] Systolic blood 140 mm[Hg] 140 mm[Hg] [facility] Body temperature 36.231537 36.490552 [facility] Respiratory rate 20 /min 20 /min [facility] Heart rate 53 /min 53 /min [facility] Diastolic blood 60 mm[Hg] 60 mm[Hg] [facility] [place] Systolic blood 98 mm[Hg] 98 mm[Hg] [facility] Body temperature 36.042038 36.006165 [facility] Respiratory rate 20 /min 20 /min [facility] Heart rate 53 /min 53 /min [facility] Diastolic blood 76 mm[Hg] 76 mm[Hg] [facility] Systolic blood 119 mm[Hg] 119 mm[Hg] [facility] [place] Body temperature 36.124594 36.521961 [facility] Respiratory rate 20 /min 20 /min [facility] Heart rate 59 /min 59 /min [facility] Diastolic blood 63 mm[Hg] 63 mm[Hg] [facility] Systolic blood 113 mm[Hg] 113 mm[Hg] [facility] [place] Body temperature 37.511355 37.450052 [facility] Respiratory rate 20 /min 20 /min [facility] Heart rate 59 /min 59 /min [facility] Diastolic blood 94 mm[Hg] 94 mm[Hg] [facility] Systolic blood 119 mm[Hg] 119 mm[Hg] [facility] Body temperature 37.406093 37.938535 [facility] Respiratory rate 20 /min 20 /min [facility] Heart rate 55 /min 55 /min [facility] Diastolic blood 60 mm[Hg] 60 mm[Hg] [facility] Center Systolic blood 104 mm[Hg] 104 mm[Hg] [facility] Body weight 77.851667 kg 77.803775 kg [facility] Body height 180.602578 180.657403 cm [facility] [place] Body mass index 23.80 kg/m2 23.80 kg/m2 [facility] (BMI) [Ratio] [facility] [address] Body temperature 36.978343 36.471190 [facility] Respiratory rate 20 /min 20 /min [facility] Heart rate 67 /min 67 /min [facility] Diastolic blood 75 mm[Hg] 75 mm[Hg] [facility] Systolic blood 114 mm[Hg] 114 mm[Hg] [facility] Oxygen saturation 98 % 98 % [facility] in Arterial blood Medical Center by Pulse oximetry Body temperature 37.714888 37.093986 [facility] Respiratory rate 17 /min 17 /min [facility] Heart rate 59 /min 59 /min [facility] Diastolic blood 79 mm[Hg] 79 mm[Hg] [facility] Systolic blood 133 mm[Hg] 133 mm[Hg] [facility] Oxygen saturation 97 % 97 % [facility] in Arterial blood [facility] by Pulse oximetry Body temperature 36.468495 36.386767 [facility] Respiratory rate 18 /min 18 /min [facility] Heart rate 62 /min 62 /min [facility] Diastolic blood 67 mm[Hg] 67 mm[Hg] [facility] Systolic blood 115 mm[Hg] 115 mm[Hg] [facility] Oxygen saturation 100 % 100 % [facility] in Arterial blood [facility] by Pulse oximetry Oxygen saturation 100 % 100 % [facility] ([facility] in Arterial blood [facility] by Pulse oximetry Center) Body mass index 34.10 kg/m2 Overweight 34.10 kg/m2 [facility] ([facility] (BMI) [Ratio] [facility]) Respiratory rate 20 /min 20 /min [facility] ([facility]) Body temperature 36.61 Magy 36.61 Magy [facility] Heart rate 72 /min 72 /min [facility] ([facility]) Diastolic blood 84 mm[Hg] 84 mm[Hg] [facility] ( [facility]) Systolic blood 154 mm[Hg] 154 mm[Hg] [facility] ([facility]) Body weight 79.197 kg 79.197 kg [facility] Body height 152.40 cm 152.40 cm [facility] ([facility]) Oxygen saturation 99 % 99 % [facility] ([facility] in Arterial blood [facility] by Pulse oximetry Center) Body mass index 35.54 kg/m2 Overweight 35.54 kg/m2 [facility] ([facility] (BMI) [Ratio] [facility]) Respiratory rate 20 /min 20 /min [facility] ([facility]) Body temperature 36.83 Magy 36.83 Magy [facility] Heart rate 81 /min 81 /min [facility] ([facility]) Diastolic blood 81 mm[Hg] 81 mm[Hg] [facility] ( [facility]) Systolic blood 120 mm[Hg] 120 mm[Hg] [facility] Body weight 82.554 kg 82.554 kg [facility] Body height 152.40 cm 152.40 cm [facility] ([facility]) Body temperature 36.216293 36.978761 Magy [facility] Respiratory rate 18 /min 18 /min [facility] Oxygen saturation 100 % 100 % [facility] in [facility] blood [facility] by Pulse oximetry Heart rate 74 /min 74 /min [facility] Diastolic blood 80 mm[Hg] 80 mm[Hg] [facility] [place] Systolic blood 120 mm[Hg] 120 mm[Hg] [facility] Body temperature 36.752712 36.444101 [facility] Respiratory rate 18 /min 18 /min [facility] Oxygen saturation 98 % 98 % [facility] in Arterial blood [facility] Center by Pulse oximetry Heart rate 92 /min 92 /min [facility] Diastolic blood 102 mm[Hg] 102 mm[Hg] [facility] [place] Systolic blood 169 mm[Hg] 169 mm[Hg] [facility] Body temperature 37.808925 37.226764 [facility] Respiratory rate 18 /min 18 /min [facility] Oxygen saturation 98 % 98 % [facility] in Arterial blood [facility] Center by Pulse oximetry Heart rate 61 /min 61 /min [facility] Diastolic blood 78 mm[Hg] 78 mm[Hg] [facility] Systolic blood 145 mm[Hg] 145 mm[Hg] [facility] Body temperature 36.953916 36.922943 [facility] Respiratory rate 18 /min 18 /min [facility] Oxygen saturation 97 % 97 % [facility] in [facility] blood [facility] by Pulse oximetry Heart rate 69 /min 69 /min [facility] Diastolic blood 92 mm[Hg] 92 mm[Hg] [facility] Systolic blood 131 mm[Hg] 131 mm[Hg] [facility] Body weight 77.275651 kg 77.659946 kg [facility] Body temperature 36.847452 36.795958 [facility] Respiratory rate 18 /min 18 /min [facility] Oxygen saturation 98 % 98 % [facility] in [facility] blood [facility] by Pulse oximetry Heart rate 76 /min 76 /min [facility] Body height 149.373665 149.971987 cm [facility] Diastolic blood 87 mm[Hg] 87 mm[Hg] [facility] Systolic blood 138 mm[Hg] 138 mm[Hg] [facility] Body mass index 34.3 kg/m2 34.3 kg/m2 [facility] (BMI) [Ratio] Medical [facility] ter Oxygen saturation 97 % 97 % [facility] ([facility] in Arterial blood [facility] by Pulse oximetry Center) Body mass index 34.76 kg/m2 Overweight 34.76 kg/m2 [facility] ([facility] (BMI) [Ratio] [facility]) Respiratory rate 18 /min 18 /min [facility] ([facility]) Body temperature 36.61 Magy 36.61 Magy [facility] ([facility]) Heart rate 77 /min 77 /min [facility] ([facility]) Diastolic blood 85 mm[Hg] 85 mm[Hg] [facility] ( [facility] pressure [facility]) Systolic blood 135 mm[Hg] 135 mm[Hg] [facility] ([facility]) Body weight 80.739 kg 80.739 kg [facility] Body height 152.40 cm 152.40 cm [facility] ([facility]) Body temperature 36.420848 36.031688 Magy [facility] Respiratory rate 19 /min 19 /min [facility] Oxygen saturation 100 % 100 % [facility] in [facility] blood [facility] by Pulse oximetry Heart rate 65 /min 65 /min [facility] Diastolic blood 76 mm[Hg] 76 mm[Hg] [facility] Center Systolic blood 139 mm[Hg] 139 mm[Hg] [facility] Body weight 77.921052 kg 77.816829 kg [facility] Measured [facility] Body temperature 36.292622 36.914982 Magy [facility] Respiratory rate 17 /min 17 /min [facility] Oxygen saturation 99 % 99 % [facility] in Arterial blood [facility] by Pulse oximetry Heart rate 74 /min 74 /min [facility] Body height 149.249462 149.428599 cm [facility] Center Diastolic blood 92 mm[Hg] 92 mm[Hg] [facility] Center Systolic blood 174 mm[Hg] 174 mm[Hg] [facility] Body mass index 34.2 kg/m2 34.2 kg/m2 [facility] eph (BMI) [Ratio] Medical [facility] Patient Treatment Plan of Care Planned Activity Planned Date Details Description Data Source (s) pantoprazole 40 MG Delayed 02/17/2020 12:00:00 [facility] ([facility] Release Oral Tablet [facility]) Aspirin 81 MG Delayed 01/27/2020 12:00:00 eCW1 ([facility] Release Oral Tablet [facility]) Aspirin 81 MG Delayed 01/27/2020 12:00:00 eCW1 ([facility] Release Oral Tablet [facility]) Aspirin 81 MG Delayed 01/27/2020 12:00:00 eCW1 ([facility] Release Oral Tablet [facility]) pantoprazole 40 MG Delayed 01/22/2020 12:00:00 [facility] ([facility] Release Oral Tablet [facility]) Nicotine 4 MG Oral Lozenge 10/20/2019 12:00:00 [facility] ([facility]) atorvastatin 10 MG Oral 10/20/2019 12:00:00 [facility] ([facility] Tablet [facility]) 24 HR metoprolol succinate 10/20/2019 12:00:00 [facility] ([facility] 50 MG Extended Release [facility] Oral Tablet [place]) 0.3 ML Epinephrine 1 MG/ML 05/29/2019 12:00:[facility] Auto-Injector [Epipen] [facility]) atorvastatin 10 MG Oral eCW1 ([facility] Tablet Medical Practic e ) 24 HR metoprolol succinate e CW1 ([facility] 25 MG Extended Release [facility] ) Oral Tablet atorvastatin 10 MG Oral eCW1 ([facility] Tablet Medical Pract[facility] ) 24 HR metoprolol succinate e CW1 ([facility] 25 MG Extended [facility] ) Oral Tablet atorvastatin 10 MG Oral eCW1 ([facility] Tablet Medical [facility] ) 24 HR metoprolol succinate e CW1 ([facility] 25 MG Extended Release [facility] ) Oral Tablet atorvastatin 10 MG Oral [facility] 24 HR metoprolol succinate S [facility] 25 MG Extended Release Medic al [place] Oral Tablet pantoprazole 40 MG Delayed S aint [facility] Famotidine 20 MG Oral [facility] Acetaminophen 325 MG Oral [facility] Tablet [facility] Metoclopramide 5 MG Oral Inderjit [facility] Acetaminophen 325 MG Oral [facility]
--- NOTE | 2020-06-27 20:14 | PDOC ---
History of Present Illness - General Chief Complaint: Chest Pain Stated Complaint: SYNCOPE/PAIN Time Seen by Provider: 06/27/20 20:05 History Source: Patient - History of Present Illness Timing/Duration: other Associated Symptoms: reports: malaise, weakness. denies: cough, diaphoresis, fever/chills, headaches, nausea/vomiting, shortness of breath, syncope Past History - Medical History Allergies/Adverse Reactions: Allergies Allergy/AdvReac Type Severity Reaction Status Date / Time No Known Allergies Allergy Verified 06/09/19 23:39 COPD: No - Reproductive History Is Patient Now?: No - Psycho-Social/Smoking History Smoking History: Never smoked Have you smoked in the past 12 months: Yes Number of Cigarettes Smoked Daily: 10 - Substance Abuse Hx (Audit-C & DAST Scrn) How often the patient has a drink containing alcohol: Never Score: In Men: 4 or > Positive; In Women: 3 or > Positive: 0 Screen Result (Pos requires Nsg. Audit-10AR): Negative Review of Systems - Review of Systems Constitutional: Yes: Malaise, Weakness. No: Chills, Fever Respiratory: No: Cough, Shortness of Breath Cardiac (ROS): No: Chest Pain, Palpitations, Syncope ABD/GI: No: Nausea, Vomiting, Abdominal cramping : No: Dysuria Neurological: No: Headache, Numbness, Tingling *Physical Exam - Vital Signs Last Vital Signs Temp Pulse Resp BP Pulse Ox 98.4 F 78 20 176/84 H 99 06/27/20 19:35 06/27/20 19:35 06/27/20 19:35 06/27/20 19:35 06/27/20 19:35 - Physical Exam General Appearance: Yes: Appropriately Dressed. No: Apparent Distress HEENT: positive: Normal Voice Neck: positive: Supple Respiratory/Chest: positive: Lungs Clear, Normal Breath Sounds. negative: Respiratory Distress Cardiovascular: positive: Regular Rate, S1, S2 Gastrointestinal/Abdominal: positive: Soft. negative: Tender Musculoskeletal: negative: CVA Tenderness Integumentary: positive: Dry, Warm, Other (scant amount of hyperpigmented macules to LUE of unclear etiology) Neurologic: positive: Fully Oriented, Alert, Normal Mood/Affect Heart Score/ECG Review - ECG Intrepretation Comment:: 06/27/20 20:29 Twelve-lead EKG was performed and reviewed by me. There is normal sinus rhythm with a normal rate. The axis is normal. The intervals are normal. There are TWI in anterior leads and lead V4, that was present on EKG from 06/09/2019 Impression: NSR @ 69BPM w/ TWI in anterior leads and lead V4, similar when compared to EKG 06/12 ED Treatment Course - LABORATORY CBC & Chemistry Diagram: 06/27/20 20:30 06/27/20 20:30 Medical Decision Making - Medical Decision Making 06/27/20 20:09 39-year-old female history of HTN, non-compliant with meds, ? CAD (reports "something" on cath several months ago but no stents or meds), currently on menses, here with malaise with dizziness and body aches since yesterday. CP documented at triage but pt denies same to me, states she has body pain, no SOB, diaphoresis, n/v/f/c, cough, abd pain, change in BM, dysuria or COWART. pt also c/o some bruises to LUE and b/l LEs that pt noticed yesterday but denies any trauma or other inciting factors. No h/o same. Of note, patient was seen here for similar symptoms a month ago with negative work-up ~1 yr ago see exam Malaise Recurrent Neg w/u for same last last year Exam today only remarkable for elevated BP (took self off meds remotely) -ekg/1 trop given ? CAD on stress test months ago per hx, denies active CP or SOB -basic labs, including coags for ? spon bruising -anticipate dc w/ PMD f/u for management of BP 06/27/20 20:32 EKG with normal sinus rhythm at 69 BPM w/ TWI in anterior leads and lead V4, similar to EKG from 06/12. 06/27/20 21:11 CBC, coags and UA unremarkable. Rpt BP 150/90. Signed out to ORALIA Patel pending chem and discharge Discharge - Discharge Information Problems reviewed: Yes Clinical Impression/Diagnosis: Malaise, Lightheaded Condition: Stable Disposition: HOME - Follow up/Referral Referrals: Rosales Bryan MD [Non Staff, Medical] - (Call tomorrow for an immediate a ppointment.) Erika So [Primary Care Provider] - Call tomorrow - Patient Discharge Instructions Patient Printed Discharge Instructions: DI for Dizziness-Nonvertigo Additional Instructions: The cause of your symptoms are unclear at this time as your labs are unremarkable and your EKG unchanged from prior Please follow up with your PMD this week for further management of your high blood pressure. Call your tile layer drainage tomorrow for an immediate follow-up appointment. Return to the emergency department for chest pain, shortness of breath, worsening pain, worsening dizziness or any other worsening symptoms. - Post Discharge Activity Work/Back to School Note: Back to Work
[2020-06-27 20:54] LABS: BASO % 0.5 % (0-2.0); EOS % 1.8 % (0-4.5); HEMOGLOBIN 12.8 GM/dL (10.7-15.3); LYMPH % 27.1 % (8-40); MCH 31.8 pg (25.7-33.7); MCHC 34.6 g/dl (32.0-36.0); MEAN CELL VOLUME 91.7 fl (80-96); MEAN PLT VOLUME 9.9 fl (7.5-11.1); MONO % 6.5 % (3.8-10.2); NEUT % 64.1 % (42.8-82.8); PLATELET COUNT 253 K/MM3 (134-434); RBC 4.04 M/mm3 (3.60-5.2); RDW 13.4 % (11.6-15.6); WHITE BLOOD COUNT 8.1 K/mm3 (4.0-10.0)
[2020-06-27 21:02] LABS: INR 1.01 (0.83-1.09); PROTHROMBIN TIME (PATIENT) 11.9 SEC (9.7-13.0)
[2020-06-27 21:15] LABS: EPI CELLS 7 /uL (0-25.1); HCG,QUALITATIVE URINE Negative; HYALINE CASTS 1 /uL (0-3.1); URINE APPEARANCE CLEAR; URINE BACTERIA 11 /uL (0-1359); URINE BILIRUBIN NEGATIVE (NEGATIVE); URINE COLOR YELLOW; URINE GLUCOSE (UA) NEGATIVE (NEGATIVE); URINE KETONE 1+ (NEGATIVE); URINE LEUK ESTERASE NEGATIVE (NEGATIVE); URINE NITRITE NEGATIVE (NEGATIVE); URINE PROTEIN NEGATIVE (NEGATIVE); URINE RBC 186 /uL (0-23.9); URINE UROBILINOGEN 0.2 mg/dL (0.2-1.0); URINE WBC 4 /uL (0-25.8)
[2020-06-27 21:41] LABS: ALBUMIN 3.8 g/dl (3.4-5.0); ALK PHOS 94 U/L (45-117); ANION GAP 7 MMOL/L (8-16); BILIRUBIN,TOTAL 0.3 mg/dL (0.2-1); BLOOD UREA NITROGEN 12.4 mg/dL (7-18); CALCIUM 9.4 mg/dL (8.5-10.1); CHLORIDE 107 mmol/L (98-107); CO2 26 mmol/L (21-32); CREATININE 0.7 mg/dL (0.55-1.3); GLUCOSE,RANDOM 87 mg/dL (74-106); SGOT/AST 17 U/L (15-37); SGPT/ALT 17 U/L (13-61); SODIUM 139 mmol/L (136-145); TOT PROT 7.3 g/dl (6.4-8.2)
--- NOTE | 2020-06-27 21:49 | PDOC ---
*Physical Exam - Vital Signs Last Vital Signs Temp Pulse Resp BP Pulse Ox 98.4 F 78 20 176/84 H 99 06/27/20 19:35 06/27/20 19:35 06/27/20 19:35 06/27/20 19:35 06/27/20 19:35 ED Treatment Course - LABORATORY CBC & Chemistry Diagram: 06/27/20 20:30 06/27/20 20:30 - ADDITIONAL ORDERS Additional order review: Laboratory Results 06/27/20 06/27/20 06/27/20 20:56 20:30 20:30 PT with INR 11.90 INR 1.01 Sodium 139 Potassium 4.0 Chloride 107 Carbon Dioxide 26 Anion Gap 7 L BUN 12.4 Creatinine 0.7 Est GFR (CKD-EPI)AfAm 125.61 Est GFR (CKD-EPI)NonAf 108.38 Random Glucose 87 Calcium 9.4 Total Bilirubin 0.3 AST 17 ALT 17 Alkaline Phosphatase 94 Creatine Kinase 133 Troponin I < 0.02 Total Protein 7.3 Albumin 3.8 TSH 0.75 Urine Color Yellow Urine Appearance Clear Urine pH 5.0 Ur Specific [place] 1.024 Urine Protein Negative Urine Glucose (UA) Negative Urine Ketones 1+ H Urine Blood 2+ H Urine Nitrite Negative Urine Bilirubin Negative Urine Urobilinogen 0.2 Ur Leukocyte Esterase Negative Urine WBC (Auto) 4 Urine RBC (Auto) 186 Urine Casts (Auto) 1 U Epithel Cells (Auto) 7 Urine Bacteria (Auto) 11 Urine HCG, Qual Negative 06/27/20 20:30 RBC 4.04 MCV 91.7 MCHC 34.6 RDW 13.4 MPV 9.9 Neutrophils % 64.1 Lymphocytes % 27.1 Monocytes % 6.5 Eosinophils % 1.8 Basophils % 0.5 Medical Decision Making - Medical Decision Making 06/27/20 21:48 Patient is a 39-year-old female with a history of hypertension and questionable CAD who was signed out to me by ORALIA Mendez for further evaluation and treatment. The patient presents to the ED with complaint of general unwell feeling since yesterday. She states she has been lightheaded with pain in her left shoulder radiating down her left upper extremity, and she is also complaining of pain in her low back that radiates down her left lower extremity. She has been having tingling sensations on the entire left side of her body. She had a recent cardiac cath roughly 3 to 4 months ago and states she did not have any cardiac stenting and was not advised to have CABG at that time. She states she did not follow-up with the oracle applications developer but did see her primary doctor who got the results. The patient states that her primary doctor told her there was no intervention needed from the cardiac cath. The reason she had the cardiac cath was secondary to having an abnormal stress test. The patient does admit to t aking herself off her hypertensive medication. The patient does state that she has been very overwhelmed lately as she just got a diagnosis of aggressive cancer for her mother and she has been having trouble with 1 of her children. She believes that her symptoms may be secondary to being very overwhelmed. She admits to not eating or drinking well lately and has not been sleeping well. The patient denies any chest pain, shortness of breath, neck pain. - Physical Exam General Appearance: Nourished, Appropriately Dressed, No Distress HEENT: EOMI, Normal Voice, Hearing Grossly Normal Neck: Supple, No Lymphadenopathy (R), No Lymphadenopathy (L), No Rigidity, No Decreased range of motion Respiratory/Chest: Lungs Clear, Normal Breath Sounds. No Respiratory Distress, No Accessory Muscle Use Cardiovascular: Regular Rhythm, Regular Rate, S1, S2 Gastrointestinal/Abdominal: Normal Bowel Sounds, Soft. Non-tender, No Guarding, No Rebound, No Rigidity Musculoskeletal: Normal Inspection. No Decreased Range of Motion Extremity: Normal Capillary Refill, Normal Inspection Integumentary: Normal Color, Dry. No Rash Neurologic: recruiting manager II-XII NML intact, Fully Oriented, Alert, Normal Mood/Affect, Normal Response Plan: -Labs reviewed which are all within normal limits including cardiac labs. -The patient states that she is able to follow-up with her oracle applications developer tomorrow and will call them first thing in the morning -I have made the patient aware that we have not found any metabolic reason for her lightheadedness at this time. She has been made aware that she must follow- up with her oracle applications developer first thing in the morning. She has been given strict return precautions and the patient understands and agrees with this treatment plan. The patient is stable for discharge. Discharge - Discharge Information Problems reviewed: Yes Clinical Impression/Diagnosis: Malaise, Lightheaded Condition: Stable Disposition: HOME - Follow up/Referral Referrals: Erika So [Primary Care Provider] - Call tomorrow Rosales Bryan MD [Non Staff, Medical] - (Call tomorrow for an immediate appointment.) - Patient Discharge Instructions Patient Printed Discharge Instructions: DI for Dizziness-Nonvertigo Additional Instructions: The cause of your symptoms are unclear at this time as your labs are unremarkable and your EKG unchanged from prior Please follow up with your PMD this week for further management of your high blood pressure. Call your oracle applications developer tomorrow for an immediate follow-up appointment. Return to the emergency department for chest pain, shortness of breath, worsening pain, worsening dizziness or any other worsening symptoms. - Post Discharge Activity Work/Back to School Note: Back to Work
--- NOTE | 2020-06-28 17:03 | EKG ---
Test Reason : Blood Pressure : / mmHG Vent. Rate : 069 BPM Atrial Rate : 069 BPM P-R Int : 146 ms QRS Dur : 086 ms QT Int : 386 ms P-R-T Axes : 043 028 035 degrees QTc Int : 413 ms NORMAL SINUS RHYTHM SEPTAL INFARCT , AGE UNDETERMINED T WAVE ABNORMALITY, CONSIDER ANTERIOR ISCHEMIA ABNORMAL ECG WHEN COMPARED WITH ECG OF 09-JUN-2019 23:23, NO SIGNIFICANT CHANGE WAS FOUND Confirmed by NADINE DIANE MD ([id number]) on 06/28/2020 5:02:46 PM Referred By: Confirmed By:NADINE DIANE MD
== END 2020-06-27 22:30 | disposition home or self-care (01) ==
LOC: JER 19:31
DX: R53.81 Other malaise (principal); R42 Dizziness and giddiness
CPT/HCPCS: 36415; 80053; 81003; 82550; 84443; 84484; 84703; 85025; 85610; 93005; 93010; 99284-25

== ENCOUNTER 2020-08-16 06:42 | Emergency (ER) | payer OTHER ==
[2020-08-16 06:53] VITALS: BP 148/84; PULSE 68; TEMP 98.1; BMI 32.7
[2020-08-16] MEDS ORDERED: ACETAMINOPHEN 500 MG TABLET (FP) PO ONE (08:05)
[2020-08-16] MEDS ORDERED: ACETAMINOPHEN 325 MG TABLET (FP) ONE (08:06)
[2020-08-16] MEDS ORDERED: ACETAMINOPHEN 1000 MG/100 ML VIAL (NON FORMULARY) IVPB ONE (08:10)
[2020-08-16] MEDS ORDERED: ACETAMINOPHEN INJECTION 100 ML IVPB ONE (08:11)
[2020-08-16 08:14] LABS: BASO % 0.8 % (0-2.0); EOS % 2.6 % (0-4.5); HEMATOCRIT 37.4 % (32.4-45.2); HEMOGLOBIN 12.5 GM/dL (10.7-15.3); LYMPH % 26.1 % (8-40); MCH 30.8 pg (25.7-33.7); MCHC 33.4 g/dl (32.0-36.0); MEAN CELL VOLUME 92.2 fl (80-96); MEAN PLT VOLUME 9.9 fl (7.5-11.1); NEUT % 62.5 % (42.8-82.8); PLATELET COUNT 219 K/MM3 (134-434); RBC 4.06 M/mm3 (3.60-5.2); RDW 13.7 % (11.6-15.6); WHITE BLOOD COUNT 9.3 K/mm3 (4.0-10.0)
[2020-08-16 08:26] LABS: CHLORIDE 110 mmol/L (98-107); POTASSIUM 4.3 mmol/L (3.5-5.1); SODIUM 140 mmol/L (136-145)
[2020-08-16 08:28] LABS: CALCIUM 8.9 mg/dL (8.5-10.1)
[2020-08-16 08:29] LABS: ALBUMIN 3.4 g/dl (3.4-5.0); ANION GAP 5 MMOL/L (8-16); BLOOD UREA NITROGEN 12.4 mg/dL (7-18); CO2 25 mmol/L (21-32); GLUCOSE,RANDOM 90 mg/dL (74-106)
[2020-08-16 08:32] LABS: CREATININE 0.6 mg/dL (0.55-1.3); SGOT/AST 12 U/L (15-37); SGPT/ALT 13 U/L (13-61)
[2020-08-16 08:34] LABS: BILIRUBIN,TOTAL 0.3 mg/dL (0.2-1); TOT PROT 6.7 g/dl (6.4-8.2)
[2020-08-16 08:35] LABS: ALK PHOS 81 U/L (45-117)
[2020-08-16 08:37] LABS: N-TERMINAL BNP 27.4 pg/ml (5-125)
== END 2020-08-16 09:34 | disposition home or self-care (01) ==
LOC: JER 06:42
PROC: 3E0333Z Introduction of Anti-inflammatory into Peripheral Vein, Percutaneous Approach (ICD-10-PCS; principal; 2020-08-16)
DX: R05 Cough (principal); R06.02 Shortness of breath
CPT/HCPCS: 36415; 71046-TC-FY; 80053; 83880; 84484; 84703; 85025; 93005; 93010; 99285-25; C9803; J0131; U0003

== ENCOUNTER 2020-11-08 21:30 | Emergency (ER) | payer OTHER ==
[2020-11-08 21:40] VITALS: BP 153/72; PULSE 82; TEMP 98.4; BMI 32.5
[2020-11-08] MEDS ORDERED: LIDOCAINE HCL 2% (20ML MULTI-DOSE VIAL) ONE (23:16)
== END 2020-11-09 00:55 | disposition home or self-care (01) ==
LOC: JER 21:30
DX: L02.01 Cutaneous abscess of face (principal)
CPT/HCPCS: 87070; 87186; 87205; 99283-25

== ENCOUNTER 2020-12-08 05:19 | Inpatient (IN) | payer OTHER ==
[2020-12-08 05:24] VITALS: BMI 32.3
[2020-12-08] MEDS ORDERED: ACETAMINOPHEN 325 MG TABLET (FP) PO ONE (05:33)
[2020-12-08] MEDS ORDERED: ACETAMINOPHEN 1000 MG/100 ML VIAL (NON FORMULARY) IVPB ONE (05:34)
[2020-12-08] MEDS ORDERED: PROCHLORPERAZINE INJECTION 10 MG/2 ML VIAL IVPB ONE (05:40)
[2020-12-08] MEDS ORDERED: METOCLOPRAMIDE HCL INJECTION 10 MG/2 ML VIAL IVPB ONE (05:43)
[2020-12-08 05:54] LABS: BASO % 0.8 % (0-2.0); EOS % 2.5 % (0-4.5); HEMATOCRIT 38.2 % (32.4-45.2); LYMPH % 33.9 % (8-40); MCH 31.3 pg (25.7-33.7); MEAN CELL VOLUME 92.1 fl (80-96); MONO % 9.1 % (3.8-10.2); NEUT % 53.7 % (42.8-82.8); PLATELET COUNT 270 K/MM3 (134-434); RBC 4.14 M/mm3 (3.60-5.2); RDW 13.6 % (11.6-15.6); WHITE BLOOD COUNT 8.6 K/mm3 (4.0-10.0)
[2020-12-08] MEDS ORDERED: ACETAMINOPHEN INJECTION 100 ML IVPB ONE (05:54)
[2020-12-08] MEDS ORDERED: METOCLOPRAMIDE HCL INJECTION 10 MG/2 ML VIAL ONE (05:54)
[2020-12-08 06:03] LABS: INR 1.04 (0.83-1.09); PROTHROMBIN TIME (PATIENT) 12.6 SEC (9.7-13.0)
[2020-12-08 06:05] LABS: ACTIVATED PTT 32.3 SECONDS (25.2-36.5)
[2020-12-08 06:06] LABS: CHLORIDE 107 mmol/L (98-107); POTASSIUM 3.8 mmol/L (3.5-5.1); SODIUM 139 mmol/L (136-145)
[2020-12-08 06:08] LABS: CALCIUM 9.5 mg/dL (8.5-10.1)
[2020-12-08 06:09] LABS: ALBUMIN 3.8 g/dl (3.4-5.0); ANION GAP 4 MMOL/L (8-16); BLOOD UREA NITROGEN 10.2 mg/dL (7-18); CO2 27 mmol/L (21-32); GLUCOSE,RANDOM 82 mg/dL (74-106); MAGNESIUM 2.1 mg/dL (1.8-2.4)
[2020-12-08 06:12] LABS: CREATININE 0.7 mg/dL (0.55-1.3); SGOT/AST 9 U/L (15-37); SGPT/ALT 15 U/L (13-61)
[2020-12-08 06:14] LABS: BILIRUBIN,TOTAL 0.3 mg/dL (0.2-1); TOT PROT 7.3 g/dl (6.4-8.2)
[2020-12-08 06:15] LABS: ALK PHOS 85 U/L (45-117)
[2020-12-08 06:18] LABS: N-TERMINAL BNP 12.5 pg/ml (5-125)
[2020-12-08 07:19] VITALS: BP 112/62; TEMP 97.6
[2020-12-08] MEDS ORDERED: ASPIRIN 325 MG TABLET PO ONE (07:22)
[2020-12-08] MEDS ORDERED: ASPIRIN 325 MG ENTERIC COATED TABLET (FP) ONE (07:44)
[2020-12-08 08:22] VITALS: PULSE 60
== END 2020-12-08 09:57 | disposition left against medical advice (07) | DRG 203 ==
LOC: JER 05:19 → JERBED 07:30
PROVIDERS: ADMIT Internal Medicine; ATTEND Internal Medicine
DX: R07.9 Chest pain, unspecified (principal); Z91.14 Patient's other noncompliance with medication regimen
CPT/HCPCS: 36415; 70450-TC; 71045-TC-FY; 80053; 82550; 83735; 83880; 84100; 84484; 84703; 85025; 85610; 85730; 93005; 93010; 99285-25; C9803; J0131; U0003

== ENCOUNTER 2020-12-17 20:20 | Emergency (ER) | payer OTHER ==
[2020-12-17 20:24] VITALS: TEMP 98.2; BMI 4218.0
[2020-12-17 22:04] LABS: PROTHROMBIN TIME (PATIENT) 12.1 SEC (9.7-13.0)
[2020-12-17 22:16] LABS: CHLORIDE 107 mmol/L (98-107); SODIUM 136 mmol/L (136-145)
[2020-12-17 22:18] LABS: BASO % 0.8 % (0-2.0); CALCIUM 9.7 mg/dL (8.5-10.1); EOS % 1.9 % (0-4.5); HEMATOCRIT 38.8 % (32.4-45.2); LYMPH % 30.6 % (8-40); MCH 31.1 pg (25.7-33.7); MCHC 33.6 g/dl (32.0-36.0); MEAN CELL VOLUME 92.7 fl (80-96); NEUT % 58.7 % (42.8-82.8); RBC 4.19 M/mm3 (3.60-5.2); RDW 13.5 % (11.6-15.6); WHITE BLOOD COUNT 12.2 K/mm3 (4.0-10.0)
[2020-12-17 22:19] LABS: ALBUMIN 3.5 g/dl (3.4-5.0); ANION GAP 3 MMOL/L (8-16); BLOOD UREA NITROGEN 8.8 mg/dL (7-18); CO2 26 mmol/L (21-32); GLUCOSE,RANDOM 71 mg/dL (74-106)
[2020-12-17 22:22] LABS: CREATININE 0.7 mg/dL (0.55-1.3); SGOT/AST 34 U/L (15-37); SGPT/ALT 21 U/L (13-61)
[2020-12-17 22:23] LABS: BILIRUBIN,TOTAL 0.4 mg/dL (0.2-1)
[2020-12-17 22:24] LABS: TOT PROT 7.1 g/dl (6.4-8.2)
[2020-12-17 22:25] LABS: ALK PHOS 76 U/L (45-117)
[2020-12-17 22:45] LABS: PLATELET ESTIMATE NORMAL
[2020-12-17 22:55] VITALS: BP 100/80
[2020-12-17 23:14] LABS: MEAN PLT VOLUME 10.7 fl (7.5-11.1); PLATELET COUNT 256 K/MM3 (134-434)
[2020-12-18 01:01] VITALS: PULSE 60
== END 2020-12-18 01:03 | disposition home or self-care (01) ==
LOC: JER 20:20
DX: R07.9 Chest pain, unspecified (principal)
CPT/HCPCS: 36415; 71046-TC-FY; 80053; 82550; 84484; 85025; 85610; 93005; 93010; 99285-25; C9803; U0003

== ENCOUNTER 2020-12-23 11:10 | Inpatient (IN) | payer OTHER ==
[2020-12-23 12:06] LABS: BASO % 1.2 % (0-2.0); EOS % 2.9 % (0-4.5); HEMATOCRIT 37.2 % (32.4-45.2); HEMOGLOBIN 12.6 GM/dL (10.7-15.3); LYMPH % 23.9 % (8-40); MCH 31.4 pg (25.7-33.7); MCHC 33.8 g/dl (32.0-36.0); MEAN PLT VOLUME 10.1 fl (7.5-11.1); MONO % 7.7 % (3.8-10.2); NEUT % 64.3 % (42.8-82.8); PLATELET COUNT 230 K/MM3 (134-434); RDW 13.4 % (11.6-15.6); WHITE BLOOD COUNT 7.5 K/mm3 (4.0-10.0)
[2020-12-23 12:13] LABS: INR 0.93 (0.83-1.09); PROTHROMBIN TIME (PATIENT) 11.3 SEC (9.7-13.0)
[2020-12-23 12:16] LABS: ACTIVATED PTT 30.1 SECONDS (25.2-36.5)
[2020-12-23 12:36] LABS: CHLORIDE 111 mmol/L (98-107); SODIUM 139 mmol/L (136-145)
[2020-12-23 12:39] LABS: ALBUMIN 3.5 g/dl (3.4-5.0); ANION GAP 4 MMOL/L (8-16); BLOOD UREA NITROGEN 9.5 mg/dL (7-18); CO2 25 mmol/L (21-32); GLUCOSE,RANDOM 94 mg/dL (74-106)
[2020-12-23 12:57] LABS: CREATININE 0.6 mg/dL (0.55-1.3); SGOT/AST 21 U/L (15-37)
[2020-12-23 12:58] LABS: SGPT/ALT 18 U/L (13-61)
[2020-12-23 12:59] LABS: ALK PHOS 79 U/L (45-117); BILIRUBIN,TOTAL 0.4 mg/dL (0.2-1); TOT PROT 6.9 g/dl (6.4-8.2)
[2020-12-23 13:02] LABS: N-TERMINAL BNP 45.7 pg/ml (5-125)
[2020-12-23] MEDS ORDERED: ASPIRIN 81 MG CHEWABLE TABLETS PO ONE ×2 (13:18)
[2020-12-23] MEDS ORDERED: ASPIRIN 81 MG CHEWABLE TABLETS ONE (13:38)
[2020-12-23] MEDS ORDERED: ENOXAPARIN NA (PORCINE) 40 MG/0.4 ML DISP.SYRIN SQ ONE (17:43)
[2020-12-23] MEDS: ENOXAPARIN NA (PORCINE) 40 MG/0.4 ML DISP.SYRIN SQ SCH (17:46)
[2020-12-24 02:57] VITALS: BMI 31.3
[2020-12-24 08:10] LABS: ALBUMIN 3.2 g/dl (3.4-5.0); BILIRUBIN,TOTAL 0.4 mg/dl (0.2-1); CALCIUM 8.7 mg/dl (8.5-10); CREATININE 0.7 mg/dl (0.55-1.3); MAGNESIUM 1.8 mg/dL (1.8-2.4); TOT PROT 5.7 g/dl (6.4-8.2)
[2020-12-24 08:12] LABS: BASO % 1.3 % (0-2.0); EOS % 3.9 % (0-4.5); HEMATOCRIT 34.8 % (32.4-45.2); HEMOGLOBIN 11.8 GM/dl (10.7-15.3); LYMPH % 32.4 % (8-40); MCH 31.6 pg (25.7-33.7); MEAN CELL VOLUME 92.9 fl (80-96); MEAN PLT VOLUME 10.1 fl (7.5-11.1); MONO % 8.8 % (3.8-10.2); NEUT % 53.6 % (42.8-82.8); PLATELET COUNT 208 K/MM3 (134-434); RBC 3.74 M/mm3 (3.60-5.2); RDW 12.6 % (11.6-15.6); WHITE BLOOD COUNT 7.3 K/mm3 (4.0-10.8)
[2020-12-24] MEDS: ENOXAPARIN NA (PORCINE) 40 MG/0.4 ML DISP.SYRIN SQ SCH (09:53)
[2020-12-24] MEDS ORDERED: ASPIRIN 81 MG CHEWABLE TABLETS PO SCH (10:00)
[2020-12-24 15:26] VITALS: BP 124/88; PULSE 58; TEMP 98.3
== END 2020-12-24 20:05 | disposition home or self-care (01) | DRG 203 ==
LOC: JER 11:10 → JERBED 16:36 → FM/S 12-24 02:22
PROVIDERS: ADMIT Internal Medicine; ATTEND Nurse Practitioner Acute Care
DX: R07.89 Other chest pain (principal); E66.9 Obesity, unspecified; I10 Essential (primary) hypertension; F41.9 Anxiety disorder, unspecified; Z68.31 Body mass index [BMI] 31.0-31.9, adult; Z87.891 Personal history of nicotine dependence; Z88.0 Allergy status to penicillin
CPT/HCPCS: 36415; 70450-TC; 71045-TC-FY; 80048; 80053; 80061; 82550; 83036; 83721; 83735; 83880; 84436; 84439; 84443; 84484; 84703; 85025; 85379; 85610; 85730; 86850; 86900; 86901; 93005; 93010; 93306-TC; 93351; 99285-25; C9803; U0003; U0005

== ENCOUNTER 2021-07-04 17:02 | Emergency (ER) | payer OTHER ==
[2021-07-04 17:08] VITALS: BP 143/91; PULSE 71; TEMP 98; BMI 32.3
== END 2021-07-04 18:45 | disposition home or self-care (01) ==
LOC: JER 17:02
DX: R07.89 Other chest pain (principal)
CPT/HCPCS: 93005; 93010; 99283-25

== ENCOUNTER 2022-02-13 02:42 | Emergency (ER) | payer OTHER ==
[2022-02-13 03:12] VITALS: BMI 30.2
[2022-02-13] MEDS ORDERED: SODIUM CHLORIDE 0.9% 500 ML INFUS.BAG IV ONE (03:13)
[2022-02-13] MEDS ORDERED: ACETAMINOPHEN 1000 MG/100 ML BAG IVPB ONE (03:13)
[2022-02-13] MEDS ORDERED: ACETAMINOPHEN INJECTION 100 ML IVPB ONE (03:55)
[2022-02-13 04:38] LABS: BASO % 0.7 % (0-2.0); EOS % 4.1 % (0-4.5); HEMATOCRIT 36.6 % (32.4-45.2); HEMOGLOBIN 12.5 GM/dL (10.7-15.3); LYMPH % 28.1 % (8-40); MCH 30.8 pg (25.7-33.7); MEAN CELL VOLUME 90.6 fl (80-96); MEAN PLT VOLUME 9.5 fl (7.5-11.1); MONO % 8.8 % (3.8-10.2); NEUT % 58.3 % (42.8-82.8); PLATELET COUNT 264 10^3/uL (134-434); RBC 4.04 M/mm3 (3.60-5.2); WHITE BLOOD COUNT 8.6 K/mm3 (4.0-10.0)
[2022-02-13 05:00] LABS: CALCIUM 9.6 mg/dL (8.5-10.1)
[2022-02-13 05:01] LABS: ALBUMIN 3.3 g/dl (3.4-5.0); BLOOD UREA NITROGEN 13.9 mg/dL (7-18)
[2022-02-13 05:04] LABS: CREATININE 0.6 mg/dL (0.55-1.3); PHOSPHOROUS 3.6 mg/dL (2.5-4.9)
[2022-02-13 05:05] LABS: BILIRUBIN,TOTAL 0.2 mg/dL (0.2-1); TOT PROT 6.4 g/dl (6.4-8.2)
[2022-02-13 05:59] LABS: PROTHROMBIN TIME (PATIENT) 11.8 SEC (9.7-13.0)
[2022-02-13 06:00] LABS: INR 1.03 (0.83-1.09)
[2022-02-13 06:35] VITALS: BP 134/62; PULSE 53; TEMP 98
[2022-02-13] MEDS ORDERED: AZITHROMYCIN 500 MG TABLET PO SCH (10:00)
== END 2022-02-13 06:55 | disposition home or self-care (01) ==
LOC: JER 02:42
PROC: 3E033GC Introduction of Other Therapeutic Substance into Peripheral Vein, Percutaneous Approach (ICD-10-PCS; principal; 2022-02-13)
DX: R07.89 Other chest pain (principal); B34.9 Viral infection, unspecified
CPT/HCPCS: 0241U-QW; 36415; 71046-TC-FY; 80053; 83735; 84100; 84484; 85025; 85610; 93005; 93010; 99285-25

== ENCOUNTER 2022-05-08 02:50 | Emergency (ER) | payer OTHER ==
[2022-05-08 03:10] VITALS: TEMP 98; BMI 29.9
[2022-05-08] MEDS ORDERED: FAMOTIDINE 20 MG/50 ML IVPB 20 MG/50 ML MG IVPB ONE ×2 (03:50→03:55)
[2022-05-08] MEDS ORDERED: DEXAMETHASONE SOD PHOSPHATE 20 MG/5 ML VIAL IVPB ONE (03:50)
[2022-05-08] MEDS ORDERED: DEXAMETHASONE SOD PHOSPHATE 10 MG/1 ML VIAL ONE ×2 (03:55→04:28)
[2022-05-08] MEDS ORDERED: FAMOTIDINE 20 MG TABLET PO ONE (04:12)
[2022-05-08] MEDS ORDERED: DEXAMETHASONE LIQUID 0.5 MG/5 ML PO ONE (04:12)
[2022-05-08] MEDS ORDERED: VALSARTAN 40 MG TABLET PO ONE (04:13)
[2022-05-08] MEDS ORDERED: FAMOTIDINE 20 MG TABLET ONE (04:17)
[2022-05-08 05:26] VITALS: BP 172/104; PULSE 53; RESP 20
== END 2022-05-08 05:47 | disposition home or self-care (01) ==
LOC: JER 02:50
PROC: 3E033NZ Introduction of Analgesics, Hypnotics, Sedatives into Peripheral Vein, Percutaneous Approach (ICD-10-PCS; principal; 2022-05-08)
PROC: 3E033GC Introduction of Other Therapeutic Substance into Peripheral Vein, Percutaneous Approach (ICD-10-PCS; 2022-05-08)
DX: I10 Essential (primary) hypertension (principal)
CPT/HCPCS: 93005; 93010; 99284-25

== ENCOUNTER 2022-07-17 09:13 | Emergency (ER) | payer OTHER ==
[2022-07-17 09:20] VITALS: BP 128/66; PULSE 77; RESP 18; TEMP 98; BMI 28.3
[2022-07-17] MEDS ORDERED: ACETAMINOPHEN 500 MG TABLET (FP) ONE (14:39)
[2022-07-17] MEDS ORDERED: ACETAMINOPHEN 500 MG TABLET (FP) PO ONE (14:39)
== END 2022-07-17 14:58 | disposition home or self-care (01) ==
LOC: JER 09:13
DX: M79.604 Pain in right leg (principal)
CPT/HCPCS: 93971-TC; 99284-25

== ENCOUNTER 2022-11-23 16:42 | Emergency (ER) | payer OTHER ==
[2022-11-23] MEDS ORDERED: METHOCARBAMOL 500 MG TABLET PO ONE (17:52)
[2022-11-23 17:58] VITALS: BP 142/87; PULSE 85; RESP 17; TEMP 98; BMI 29.0
[2022-11-23] MEDS ORDERED: METHOCARBAMOL 500 MG TABLET ONE (18:00)
== END 2022-11-23 18:31 | disposition home or self-care (01) ==
LOC: JERFT 16:42
DX: S76.312A Strain of muscle, fascia and tendon of the posterior muscle group at thigh level, left thigh, initial encounter (principal); X50.0XXA Overexertion from strenuous movement or load, initial encounter
CPT/HCPCS: 99283-25

== ENCOUNTER 2023-01-03 15:26 | Emergency (ER) | payer OTHER ==
[2023-01-03 15:51] VITALS: RESP 16; BMI 29.2
[2023-01-03] MEDS ORDERED: SODIUM CHLORIDE 0.9% 500 ML INFUS.BAG IV ONE (16:18)
[2023-01-03 17:33] LABS: BASO % 0.5 % (0-2.0); EOS % 1.7 % (0-4.5); HEMATOCRIT 35.5 % (32.4-45.2); HEMOGLOBIN 12.2 GM/dL (10.7-15.3); LYMPH % 29.3 % (8-40); MCH 30.8 pg (25.7-33.7); MCHC 34.4 g/dl (32.0-36.0); MEAN CELL VOLUME 89.7 fl (80-96); MEAN PLT VOLUME 9.8 fl (7.5-11.1); NEUT % 59.5 % (42.8-82.8); PLATELET COUNT 276 10^3/uL (134-434); RBC 3.96 M/mm3 (3.60-5.2); RDW 13.7 % (11.6-15.6); WHITE BLOOD COUNT 7.2 K/mm3 (4.0-10.0)
[2023-01-03 17:40] LABS: INR 1.06 (0.83-1.09); PROTHROMBIN TIME (PATIENT) 12.3 SEC (9.7-13.0)
[2023-01-03 17:43] LABS: ACTIVATED PTT 30.6 SECONDS (25.2-36.5)
[2023-01-03 17:51] LABS: ALBUMIN 3.6 g/dl (3.4-5.0)
[2023-01-03 17:52] LABS: CALCIUM 10.1 mg/dL (8.5-10.1); MAGNESIUM 2.3 mg/dL (1.8-2.4)
[2023-01-03 17:54] LABS: CREATININE 0.7 mg/dL (0.55-1.3)
[2023-01-03 17:57] LABS: BILIRUBIN,TOTAL 0.2 mg/dL (0.2-1); TOT PROT 7.1 g/dl (6.4-8.2)
[2023-01-03 19:08] VITALS: BP 118/72; PULSE 69; TEMP 98.7
== END 2023-01-03 19:52 | disposition home or self-care (01) ==
LOC: JER 15:26
DX: R07.89 Other chest pain (principal); R00.2 Palpitations; R42 Dizziness and giddiness
CPT/HCPCS: 36415; 71045-TC-FY; 80053; 83735; 84100; 84436; 84443; 84484; 85025; 85610; 85730; 93005; 93010; 99285-25

== ENCOUNTER 2023-01-26 17:21 | Emergency (ER) | payer OTHER ==
[2023-01-26 17:29] VITALS: BP 151/80; PULSE 73; RESP 18; TEMP 98.1; BMI 28.3
[2023-01-26] MEDS ORDERED: SODIUM CHLORIDE 0.9% 500 ML INFUS.BAG IV ONE (18:46)
[2023-01-26] MEDS ORDERED: ACETAMINOPHEN 1000 MG/100 ML BAG IVPB ONE (18:46)
[2023-01-26] MEDS ORDERED: METOCLOPRAMIDE HCL INJECTION 10 MG/2 ML VIAL IVPB ONE (18:46)
[2023-01-26] MEDS ORDERED: ACETAMINOPHEN INJECTION 100 ML IVPB ONE (19:36)
[2023-01-26] MEDS ORDERED: METOCLOPRAMIDE HCL INJECTION 10 MG/2 ML VIAL ONE (19:36)
[2023-01-26 19:56] LABS: BASO % 0.7 % (0-2.0); EOS % 1.1 % (0-4.5); HEMATOCRIT 36.6 % (32.4-45.2); HEMOGLOBIN 12.4 GM/dL (10.7-15.3); LYMPH % 28.7 % (8-40); MCH 30.7 pg (25.7-33.7); MCHC 33.7 g/dl (32.0-36.0); MEAN CELL VOLUME 90.9 fl (80-96); MEAN PLT VOLUME 9.3 fl (7.5-11.1); MONO % 8.1 % (3.8-10.2); NEUT % 61.4 % (42.8-82.8); PLATELET COUNT 250 10^3/uL (134-434); RBC 4.03 M/mm3 (3.60-5.2); WHITE BLOOD COUNT 7.4 K/mm3 (4.0-10.0)
[2023-01-26 20:02] LABS: INR 1.02 (0.83-1.09); PROTHROMBIN TIME (PATIENT) 11.8 SEC (9.7-13.0)
[2023-01-26 20:05] LABS: ACTIVATED PTT 31.1 SECONDS (25.2-36.5)
[2023-01-26 20:13] LABS: POTASSIUM 3.9 mmol/L (3.5-5.1)
[2023-01-26 20:14] LABS: CALCIUM 9.6 mg/dL (8.5-10.1)
[2023-01-26 20:15] LABS: ALBUMIN 4.1 g/dl (3.4-5.0); BLOOD UREA NITROGEN 10.8 mg/dL (7-18)
[2023-01-26 20:18] LABS: CREATININE 0.7 mg/dL (0.55-1.3)
[2023-01-26 20:20] LABS: BILIRUBIN,TOTAL 0.5 mg/dL (0.2-1); TOT PROT 7.7 g/dl (6.4-8.2)
== END 2023-01-26 22:01 | disposition home or self-care (01) ==
LOC: JER 17:21
PROC: 3E033NZ Introduction of Analgesics, Hypnotics, Sedatives into Peripheral Vein, Percutaneous Approach (ICD-10-PCS; principal; 2023-01-26)
PROC: 3E033GC Introduction of Other Therapeutic Substance into Peripheral Vein, Percutaneous Approach (ICD-10-PCS; 2023-01-26)
DX: R42 Dizziness and giddiness (principal); R00.2 Palpitations; R51.9 Headache, unspecified; H53.8 Other visual disturbances; R07.9 Chest pain, unspecified; R06.02 Shortness of breath; R11.0 Nausea
CPT/HCPCS: 36415; 71046-TC-FY; 80053; 84484; 84703; 85025; 85610; 85730; 93005; 93010; 99285-25

== ENCOUNTER 2023-05-03 15:54 | Emergency (ER) | payer OTHER ==
[2023-05-03 16:06] VITALS: RESP 16; TEMP 98; BMI 29.7
[2023-05-03] MEDS ORDERED: LACTATED RINGERS SOLUTION 1000 ML INFUS.BAG IV ONE (16:40)
[2023-05-03] MEDS ORDERED: ACETAMINOPHEN 1000 MG/100 ML BAG IVPB ONE (16:41)
[2023-05-03] MEDS ORDERED: METOCLOPRAMIDE HCL INJECTION 10 MG/2 ML VIAL IVPUSH ONE (16:41)
[2023-05-03] MEDS ORDERED: ACETAMINOPHEN INJECTION 100 ML IVPB ONE (16:43)
[2023-05-03] MEDS ORDERED: METOCLOPRAMIDE HCL INJECTION 10 MG/2 ML VIAL ONE (16:43)
[2023-05-03] MEDS ORDERED: MECLIZINE HCL 25 MG TABLET (FP) PO ONE (17:40)
[2023-05-03 17:46] LABS: BASO % 0.9 % (0-2.0); EOS % 2.6 % (0-4.5); HEMATOCRIT 37.9 % (32.4-45.2); HEMOGLOBIN 12.9 GM/dL (10.7-15.3); LYMPH % 35.6 % (8-40); MCH 30.7 pg (25.7-33.7); MEAN CELL VOLUME 90.1 fl (80-96); MEAN PLT VOLUME 8.8 fl (7.5-11.1); MONO % 7.6 % (3.8-10.2); NEUT % 53.3 % (42.8-82.8); PLATELET COUNT 252 10^3/uL (134-434); WHITE BLOOD COUNT 6.6 K/mm3 (4.0-10.0)
[2023-05-03] MEDS ORDERED: MECLIZINE HCL 25 MG TABLET (FP) ONE ×2 (17:53)
[2023-05-03 17:55] LABS: INR 1.06 (0.83-1.09); PROTHROMBIN TIME (PATIENT) 12.3 SEC (9.7-13.0)
[2023-05-03 17:58] LABS: ACTIVATED PTT 29.7 SECONDS (25.2-36.5); POTASSIUM 3.8 mmol/L (3.5-5.1)
[2023-05-03 18:00] LABS: ALBUMIN 3.8 g/dl (3.4-5.0); CALCIUM 9.1 mg/dL (8.5-10.1)
[2023-05-03 18:01] LABS: BLOOD UREA NITROGEN 12.3 mg/dL (7-18); MAGNESIUM 2.1 mg/dL (1.8-2.4)
[2023-05-03 18:03] LABS: CREATININE 0.7 mg/dL (0.55-1.3)
[2023-05-03 18:05] LABS: BILIRUBIN,TOTAL 0.4 mg/dL (0.2-1); TOT PROT 7.3 g/dl (6.4-8.2)
[2023-05-03 20:21] VITALS: BP 145/85; PULSE 59
== END 2023-05-03 20:23 | disposition home or self-care (01) ==
LOC: JER 15:54
PROC: 3E033NZ Introduction of Analgesics, Hypnotics, Sedatives into Peripheral Vein, Percutaneous Approach (ICD-10-PCS; principal; 2023-05-03)
PROC: 3E033GC Introduction of Other Therapeutic Substance into Peripheral Vein, Percutaneous Approach (ICD-10-PCS; 2023-05-03)
DX: R20.2 Paresthesia of skin (principal); R51.9 Headache, unspecified; M79.661 Pain in right lower leg; R07.89 Other chest pain; R42 Dizziness and giddiness; K08.89 Other specified disorders of teeth and supporting structures
CPT/HCPCS: 36415; 70450-TC; 71046-TC-FY; 80053; 83735; 84484; 84703; 85025; 85379; 85610; 85730; 93005; 93010; 93971-TC; 99285-25

== ENCOUNTER 2023-10-10 16:21 | Emergency (ER) | payer OTHER ==
[2023-10-10 16:51] VITALS: BP 134/74; PULSE 74; RESP 17; TEMP 98.7; BMI 32.1
[2023-10-10] MEDS ORDERED: ACETAMINOPHEN 1000 MG/100 ML BAG IVPB ONE (17:56)
[2023-10-10] MEDS ORDERED: LACTATED RINGERS SOLUTION 1000 ML INFUS.BAG IV ONE (17:56)
[2023-10-10] MEDS ORDERED: METOCLOPRAMIDE HCL INJECTION 10 MG/2 ML VIAL IVPUSH ONE (17:56)
[2023-10-10] MEDS ORDERED: ACETAMINOPHEN INJECTION 100 ML IVPB ONE (18:37)
[2023-10-10] MEDS ORDERED: METOCLOPRAMIDE HCL INJECTION 10 MG/2 ML VIAL ONE (18:37)
[2023-10-10 19:12] LABS: BASO % 0.6 % (0-2.0); EOS % 0.7 % (0-4.5); HEMATOCRIT 38.2 % (32.4-45.2); HEMOGLOBIN 12.8 GM/dL (10.7-15.3); MCH 30.9 pg (25.7-33.7); MCHC 33.5 g/dl (32.0-36.0); MEAN CELL VOLUME 92.5 fl (80-96); MEAN PLT VOLUME 9.1 fl (7.5-11.1); MONO % 6.9 % (3.8-10.2); NEUT % 79.8 % (42.8-82.8); PLATELET COUNT 283 10^3/uL (134-434); RBC 4.13 M/mm3 (3.60-5.2); RDW 12.6 % (11.6-15.6); WHITE BLOOD COUNT 10.3 K/mm3 (4.0-10.0)
[2023-10-10 19:15] LABS: EPI CELLS 18 /uL (0-25.1); HYALINE CASTS 1 /uL (0-3.1); URINE APPEARANCE CLEAR; URINE BACTERIA 128 /uL (0-1359); URINE BILIRUBIN NEGATIVE (NEGATIVE); URINE COLOR YELLOW; URINE GLUCOSE (UA) NEGATIVE (NEGATIVE); URINE KETONE NEGATIVE (NEGATIVE); URINE LEUK ESTERASE TRACE (NEGATIVE); URINE NITRITE NEGATIVE (NEGATIVE); URINE PROTEIN NEGATIVE (NEGATIVE); URINE RBC 9 /uL (0-23.9); URINE WBC 26 /uL (0-25.8)
[2023-10-10 19:23] LABS: INR 0.98 (0.83-1.09); PROTHROMBIN TIME (PATIENT) 11.4 SEC (9.7-13.0)
[2023-10-10 19:26] LABS: ACTIVATED PTT 30.1 SECONDS (25.2-36.5)
[2023-10-10 19:30] LABS: POTASSIUM 3.7 mmol/L (3.5-5.1)
[2023-10-10 19:32] LABS: ALBUMIN 3.7 g/dl (3.4-5.0); CALCIUM 9.4 mg/dL (8.5-10.1)
[2023-10-10 19:34] LABS: BLOOD UREA NITROGEN 8.3 mg/dL (7-18); MAGNESIUM 2.3 mg/dL (1.8-2.4)
[2023-10-10 19:35] LABS: CREATININE 0.7 mg/dL (0.55-1.3)
[2023-10-10 19:38] LABS: BILIRUBIN,TOTAL 0.4 mg/dL (0.2-1); TOT PROT 7.6 g/dl (6.4-8.2)
[2023-10-10] MEDS ORDERED: LIDOCAINE 5% TOPICAL PATCH TP ONE (19:46)
[2023-10-10] MEDS ORDERED: LIDOCAINE 4% PATCH TP ONE (19:56)
[2023-10-11] MEDS ORDERED: LIDOCAINE PATCH REMOVAL MC SCH (08:00)
== END 2023-10-10 20:46 | disposition home or self-care (01) ==
LOC: JER 16:21
PROC: 3E033NZ Introduction of Analgesics, Hypnotics, Sedatives into Peripheral Vein, Percutaneous Approach (ICD-10-PCS; principal; 2023-10-10)
PROC: 3E033GC Introduction of Other Therapeutic Substance into Peripheral Vein, Percutaneous Approach (ICD-10-PCS; 2023-10-10)
DX: R07.89 Other chest pain (principal); R53.1 Weakness; R11.0 Nausea; Z20.822 Contact with and (suspected) exposure to COVID-19
CPT/HCPCS: 0241U-QW; 36415; 71046-TC-FY; 80053; 81003; 83735; 84484; 84703; 85025; 85610; 85730; 87086; 87186; 93005; 93010; 99285-25

== ENCOUNTER 2024-12-10 22:02 | Emergency (ER) | payer OTHER ==
[2024-12-10 22:14] VITALS: BP 131/84; PULSE 82; RESP 20; TEMP 98.4; BMI 32.7
[2024-12-10] MEDS ORDERED: METHOCARBAMOL 500 MG TABLET ONE (23:52)
[2024-12-10] MEDS ORDERED: ACETAMINOPHEN 500 MG TABLET (FP) ONE (23:53)
[2024-12-11] MEDS: ACETAMINOPHEN 500 MG TABLET (FP) PO ONE (00:14)
[2024-12-11] MEDS: METHOCARBAMOL 500 MG TABLET PO ONE (00:14)
== END 2024-12-11 00:26 | disposition home or self-care (01) ==
LOC: JERFT 22:02
DX: S39.012A Strain of muscle, fascia and tendon of lower back, initial encounter (principal); W01.198A Fall on same level from slipping, tripping and stumbling with subsequent striking against other object, initial encounter
CPT/HCPCS: 99283-25

== ENCOUNTER 2025-02-09 06:40 | Day surgery (SDC) | payer OTHER ==
[2025-02-04 16:27] VITALS: BMI 34.1
[2025-02-09] MEDS ORDERED: MIDAZOLAM HCL 2 MG/2 ML SINGLE DOSE VIAL ONE (07:53)
[2025-02-09 08:56] VITALS: TEMP 97.6
[2025-02-09 09:36] VITALS: BP 122/76; PULSE 63; RESP 12
== END 2025-02-09 09:36 | disposition home or self-care (01) ==
LOC: JASU-ENDO 06:40
PROVIDERS: ATTEND Internal Medicine Gastroenterology
PROC: 0DBN8ZX Excision of Sigmoid Colon, Via Natural or Artificial Opening Endoscopic, Diagnostic (ICD-10-PCS; 2025-02-09)
PROC: 0DBP8ZX Excision of Rectum, Via Natural or Artificial Opening Endoscopic, Diagnostic (ICD-10-PCS; 2025-02-09)
PROC: 0DBH8ZX Excision of Cecum, Via Natural or Artificial Opening Endoscopic, Diagnostic (ICD-10-PCS; principal; 2025-02-09 08:00)
DX: Z12.11 Encounter for screening for malignant neoplasm of colon (principal); D12.8 Benign neoplasm of rectum; D12.7 Benign neoplasm of rectosigmoid junction; D12.0 Benign neoplasm of cecum; K57.30 Diverticulosis of large intestine without perforation or abscess without bleeding; K64.8 Other hemorrhoids
CPT/HCPCS: 81025; 88305-TC; 88341-TC; 88342-TC

== ENCOUNTER 2025-05-13 21:30 | Emergency (ER) | payer OTHER ==
[2025-05-13 21:38] VITALS: BMI 33.7
[2025-05-13] MEDS ORDERED: ACETAMINOPHEN INJECTION 100 ML ONE (22:21)
[2025-05-13] MEDS: ACETAMINOPHEN 1000 MG/100 ML BAG IVPB ONE (22:58)
[2025-05-13] MEDS: SODIUM CHLORIDE 0.9% 500 ML INFUS.BAG IV ONE (23:03)
[2025-05-13 23:15] LABS: ABSOLUTE IMMATURE GRANULOCYTES 0.02 x10^3/uL (0.0-0.031); BASOPHILS # 0.04 x10^3/uL (0.01-0.08); EOSINOPHIL % 2.1 % (0.7-5.8); EOSINOPHILS # 0.14 x10^3/uL (0.04-0.36); MCHC 32.4 g/dl (32.2-35.5); MEAN CELL VOLUME 92.0 fl (79.4-94.8); MEAN PLT VOLUME 10.8 fl (9.4-12.3); MONOCYTE # 0.52 x10^3/uL (0.24-0.86); MONOCYTE % 7.8 % (4.7-12.5); RDW 12.5 % (12.2-17.1)
[2025-05-13 23:46] LABS: GLUCOSE,RANDOM 90.0 mg/dL (74-106); TOT PROT 7.3 g/dl (6.4-8.2)
[2025-05-13 23:49] LABS: ALK PHOS 63.0 U/L (40-150)
[2025-05-13 23:52] LABS: CO2 24.0 mmol/L (21-32); CREATININE 0.73 mg/dL (0.55-1.3); SGOT/AST 17.0 U/L (5-34); SGPT/ALT 12.0 U/L (0-55)
[2025-05-14 00:12] LABS: HCV DIAGNOSTIC IN-HOUSE W/RFLX NON-REACTIVE (NONREACTIVE)
[2025-05-14 00:54] VITALS: BP 128/79; PULSE 61; RESP 16; TEMP 97.9
[2025-05-14 02:02] LABS: HIV INTERPRETATION NEGATIVE (NEGATIVE)
== END 2025-05-14 01:42 | disposition home or self-care (01) ==
LOC: JER 21:30
PROC: 3E033NZ Introduction of Analgesics, Hypnotics, Sedatives into Peripheral Vein, Percutaneous Approach (ICD-10-PCS; principal; 2025-05-13)
DX: R07.89 Other chest pain (principal); R23.2 Flushing; H53.8 Other visual disturbances; R26.81 Unsteadiness on feet; R53.1 Weakness; R06.02 Shortness of breath; R51.9 Headache, unspecified; R11.0 Nausea; R00.2 Palpitations
CPT/HCPCS: 36415; 71046-TC-FY; 80053; 84439; 84443; 84484; 84703; 85025; 86803; 87389; 93005; 93010; 99285-25